=== PATIENT | female | born 1940 | race Caucasian/White ===

== ENCOUNTER → 2018-08-05 | Outpatient (CLI) | payer MEDICARE ==
--- NOTE | 2018-08-05 15:14 | US ---
EXAMINATION TYPE: US carotid duplex BILAT DATE OF EXAM: 08/05/2018 COMPARISON: NONE CLINICAL HISTORY: I65.23 Occlusion and stenosis of bilateral carotid. Blurred vision for 2 months EXAM MEASUREMENTS: RIGHT: Peak Systolic Velocity (PSV) cm/sec ----- Right CCA: 66.0 ----- Right ICA: 137.1 ----- Right ECA: 110.8 ICA/CCA ratio: 2.1 RIGHT: End Diastole cm/sec ----- Right CCA: 17.1 ----- Right ICA: 32.7 ----- Right ECA: 10.7 LEFT: Peak Systolic Velocity (PSV) cm/sec ----- Left CCA: 76.5 ----- Left ICA: 103.0 ----- Left ECA: 84.9 ICA/CCA ratio: 1.3 LEFT: End Diastole cm/sec ----- Left CCA: 12.8 ----- Left ICA: 29.2 ----- Left ECA: 9.8 VERTEBRALS (direction of flow): Right Vertebral: Antegrade Left Vertebral: Antegrade Rhythm: Normal Moderate plaque right bifurcation. Mild plaque left bifurcation IMPRESSION: No evidence for hemodynamically significant stenosis. Criteria for Assigning % of Stenosis / Diameter reduction (Estimation based on the indirect measurements of the internal carotid artery velocities (ICA PSV). 1. Normal (no stenosis)=ICA PSV < 125 cm/s: ratio < 2.0: ICA EDV<40 cm/s. 2. Less than 50% stenosis=ICA PSV < 125 cm/s: ratio < 2.0: ICA EDV<40 cm/s. 3. 50 to 69% stenosis=ICA PSV of 125 to 230 cm/s: ration 2.0 ? 4.0: ICA EDV 40-100 cm/s. 4. Greater than 70% stenosis to near occlusion= ICA PSV > 230 cm/s: ratio > 4.0: ICA EDV > 100 cm/s. 5. Near occlusion= ICA PSV velocities may be low or undetectable: variable ratio and ICA EDV. 6. Total occlusion=unable to detect flow.
== END | disposition home or self-care (01) ==
LOC: RADUSWWP 14:24
PROVIDERS: ATTEND Internal Medicine
DX: I65.23 Occlusion and stenosis of bilateral carotid arteries (principal)
CPT/HCPCS: 93880

== ENCOUNTER 2020-05-06 06:18 | Emergency (ER) | payer MEDICARE ==
[2020-05-06] MEDS ORDERED: ONDANSETRON 4 MG/2 ML VIAL IVP STA (06:22)
[2020-05-06] MEDS ORDERED: SODIUM CHLORIDE 0.9% 1,000 ML IV STA (06:22)
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
[2020-05-06 06:25] VITALS: TEMP 98.3
[2020-05-06 06:47] LABS: Basophils # (A) 0.1 k/uL (0-0.2); Basophils % (A) 1 %; Carbon Monoxide 1.9 % (<10.0); Eosinophils # (A) 0.2 k/uL (0-0.7); Eosinophils % (A) 5 %; HCT 38.7 % (34.0-46.0); HGB 13.4 gm/dL (11.4-16.0); Lymphocytes # (A) 2.3 k/uL (1.0-4.8); Lymphocytes % (A) 44 %; MCH 30.7 pg (25.0-35.0); MCHC 34.6 g/dL (31.0-37.0); MCV 88.8 fL (80.0-100.0); Mean Platelet Volume 6.7; Monocytes # (A) 0.2 k/uL (0-1.0); Monocytes % (A) 5 %; Neutrophils # (A) 2.3 k/uL (1.3-7.7); Neutrophils % (A) 44 %; Platelet Count 207 k/uL (150-450); RBC 4.36 m/uL (3.80-5.40); RDW 13.6 % (11.5-15.5); VBG PH 7.35 (7.31-7.41); WBC 5.2 k/uL (3.8-10.6)
[2020-05-06 07:04] LABS: Albumin 3.5 g/dL (3.5-5.0); Calcium 8.8 mg/dL (8.4-10.2); Magnesium 1.3 mg/dL (1.6-2.3); Phosphorus 3.8 mg/dL (2.5-4.5); Potassium 3.9 mmol/L (3.5-5.1); Total Bilirubin 0.5 mg/dL (0.2-1.3); Total Protein 6.1 g/dL (6.3-8.2)
[2020-05-06 07:11] VITALS: BP 165/70; PULSE 71; RESP 16
== END 2020-05-06 07:33 | disposition home or self-care (01) ==
LOC: EC 06:18
DX: R53.1 Weakness (principal); R11.2 Nausea with vomiting, unspecified; E11.9 Type 2 diabetes mellitus without complications; I10 Essential (primary) hypertension; Z79.84 Long term (current) use of oral hypoglycemic drugs; Z79.899 Other long term (current) drug therapy; Z88.8 Allergy status to other drugs, medicaments and biological substances; Z91.048 Other nonmedicinal substance allergy status; Z85.828 Personal history of other malignant neoplasm of skin; Z90.49 Acquired absence of other specified parts of digestive tract; Z87.891 Personal history of nicotine dependence; Z98.42 Cataract extraction status, left eye; Z98.41 Cataract extraction status, right eye
CPT/HCPCS: 36415; 80053; 82375; 82550; 82803; 83735; 84100; 84484; 85025; 93005; 96360; 99285

== ENCOUNTER → 2021-09-17 | Outpatient (CLI) | payer MEDICARE ==
--- NOTE | 2021-09-17 13:38 | US ---
EXAMINATION TYPE: US carotid duplex BILAT DATE OF EXAM: 09/17/2021 COMPARISON: US 2019 CLINICAL HISTORY: Z86.79 PERSONAL HISTORY OF OTHER DISEASES OF THE C. EXAM MEASUREMENTS: RIGHT: Peak Systolic Velocity (PSV) cm/sec ----- Right CCA: 68.9 ----- Right ICA: 116.3 ----- Right ECA: 92.4 ICA/CCA ratio: 1.7 RIGHT: End Diastole cm/sec ----- Right CCA: 17.9 ----- Right ICA: 30.4 ----- Right ECA: 10.7 LEFT: Peak Systolic Velocity (PSV) cm/sec ----- Left CCA: 65.0 ----- Left ICA: 73.2 ----- Left ECA: 69.8 ICA/CCA ratio: 1.1 LEFT: End Diastole cm/sec ----- Left CCA: 12.0 ----- Left ICA: 18.5 ----- Left ECA: 0.0 VERTEBRALS (direction of flow): Right Vertebral: Antegrade Left Vertebral: Antegrade Rhythm: Arrhythmia No significant stenosis IMPRESSION: No significant flow-limiting stenosis by velocity measurements. Criteria for Assigning % of Stenosis / Diameter reduction (Estimation based on the indirect measurements of the internal carotid artery velocities (ICA PSV). 1. Normal (no stenosis)=ICA PSV < 125 cm/s: ratio < 2.0: ICA EDV<40 cm/s. 2. Less than 50% stenosis=ICA PSV < 125 cm/s: ratio < 2.0: ICA EDV<40 cm/s. 3. 50 to 69% stenosis=ICA PSV of 125 to 230 cm/s: ration 2.0 ? 4.0: ICA EDV 40-100 cm/s. 4. Greater than 70% stenosis to near occlusion= ICA PSV > 230 cm/s: ratio > 4.0: ICA EDV > 100 cm/s. 5. Near occlusion= ICA PSV velocities may be low or undetectable: variable ratio and ICA EDV. 6. Total occlusion=unable to detect flow.
== END | disposition home or self-care (01) ==
LOC: RADUSWWP 11:59
PROVIDERS: ATTEND Internal Medicine
DX: I49.9 Cardiac arrhythmia, unspecified (principal); Z86.79 Personal history of other diseases of the circulatory system
CPT/HCPCS: 93880

== ENCOUNTER → 2021-11-03 | Outpatient (CLI) | payer MEDICARE ==
--- NOTE | 2021-11-03 21:15 | CT ---
EXAMINATION TYPE: CT brain wo con CT DLP: 1036 mGycm, Automated exposure control for dose reduction was used. DATE OF EXAM: 11/03/2021 7:05 PM COMPARISON: None. CLINICAL INDICATION:Female, 81 years old with history of Dizziness R42, dizziness TECHNIQUE: Brain: Multiple axial CT images of the brain were obtained without IV contrast. FINDINGS: Brain: Extra-axial spaces: No abnormal extra-axial fluid collections. Ventricular system: Dilatation in proportion to cerebral atrophy. Cerebral parenchyma: Cerebral atrophy. No acute intraparenchymal hemorrhage or mass effect. The judd -white junction is well differentiated. Scattered hypoattenuating areas are seen within the white mat ter. Cerebellum: Unremarkable. Mass effect: No evidence of midline shift. Intracranial vasculature: unremarkable Soft tissues: Normal. Calvarium/osseous structures: No depressed skull fracture. Paranasal sinuses and mastoid air cells: Mild scattered paranasal sinus disease most proximal left ma xillary sinus. Visualized orbits: Bilateral aphakia IMPRESSION: 1. No acute intracranial process. 2. Nonspecific white matter changes, likely secondary to chronic small vessel ischemic disease.
== END | disposition home or self-care (01) ==
LOC: RADCTMAIN 18:42
PROVIDERS: ATTEND Internal Medicine
DX: I67.82 Cerebral ischemia (principal)
CPT/HCPCS: 70450

== ENCOUNTER 2021-11-07 20:37 | Inpatient (IN) | payer MEDICARE ==
[2021-11-07] MEDS ORDERED: Alteplase PER PHARMACY Stroke 1 EACH MISC MISCELLANE PRN (20:44)
[2021-11-07] MEDS ORDERED: ALTEPLASE 73 MG in EMPTY BAG 1 BAG IV STA (20:47)
[2021-11-07] MEDS ORDERED: ALTEPLASE BOLUS FOR STROKE 8 MG in EMPTY SYRINGE 1 SYR IV STA (20:47)
[2021-11-07 21:01] LABS: Glucose,Whole Blood 215 mg/dL (70-110)
[2021-11-07 21:03] LABS: Basophils % (A) 0 %; Eosinophils # (A) 0.1 k/uL (0-0.7); Eosinophils % (A) 2 %; HCT 38.2 % (34.0-46.0); HGB 13.1 gm/dL (11.4-16.0); Lymphocytes # (A) 2.2 k/uL (1.0-4.8); Lymphocytes % (A) 33 %; MCH 29.5 pg (25.0-35.0); MCHC 34.3 g/dL (31.0-37.0); MCV 86.3 fL (80.0-100.0); Mean Platelet Volume 7.3; Monocytes # (A) 0.3 k/uL (0-1.0); Monocytes % (A) 4 %; Neutrophils # (A) 3.9 k/uL (1.3-7.7); Neutrophils % (A) 58 %; Platelet Count 177 k/uL (150-450); RBC 4.43 m/uL (3.80-5.40); RDW 13.4 % (11.5-15.5); WBC 6.6 k/uL (3.8-10.6)
--- NOTE | 2021-11-07 21:05 | ED ---
General Adult HPI - General Chief complaint: Weakness Stated complaint: Stroke-like Symptoms Time Seen by Provider: 11/07/21 20:43 Source: patient, RN notes reviewed, old records reviewed Mode of arrival: EMS Limitations: altered mental status - History of Present Illness Initial comments: Patient is an 81-year-old female with past medical history remarkable for diabetes, hypertension, presents emergency Department complaining of weakness. Last known well was approximately 1930 with family saw her. They returned shortly after 8 PM and patient is complaining of generalized weakness at that time. They called EMS. EMS was concerned for possible facial droop but generalized weakness all over. Upon arrival, patient was evaluated in trauma bay 1. She does have left-sided facial droop. History is difficult to obtain from the patient, but she denies any pain anywhere. Does have slurred speech. Has generalized weakness in all extremities. Answering questions appropriately. At this time, code alteplase was activated. - Related Data Home Medications Medication Instructions Recorded Confirmed Aspirin 81 mg PO DAILY 01/12/14 11/07/21 Levothyroxine Sodium [Synthroid] 75 mcg PO DAILY 01/12/14 11/07/21 hydroCHLOROthiazide [Hydrodiuril] 25 mg PO DAILY 01/12/14 11/07/21 lisinopriL 40 mg PO DAILY 01/12/14 11/07/21 Calcium Carbonate [Calcium] 600 mg PO BID 11/07/21 11/07/21 Cholecalciferol [Vitamin D3 (25 25 mcg PO Q48H 11/07/21 11/07/21 Mcg = 1000 Iu)] Doxycycline [Vibramycin] 100 mg PO DIRECTED 11/07/21 11/07/21 Fish Oil/Dha/Epa [Fish Oil 1,200 1 cap PO DAILY 11/07/21 11/07/21 mg Fish Oil] Glimepiride [Amaryl] 1 mg PO W/BRKFST 11/07/21 11/07/21 Indomethacin [Indocin] 50 mg PO DIRECTED 11/07/21 11/07/21 Oxybutynin Chloride 5 mg PO HS 11/07/21 11/07/21 Rosuvastatin Calcium [Crestor] 5 mg PO HS 11/07/21 11/07/21 Allergies Allergy/AdvReac Type Severity Reaction Status Date / Time cephalexin [From Keflex] Allergy Nausea & Verified 11/07/21 22:31 Vomiting fenofibrate nanocrystallized Allergy irregular Verified 11/07/21 20:50 [From Tricor] heart rate fenofibrate,micronized Allergy irregular Verified 11/07/21 20:50 [From Tricor] heart rate moxifloxacin [From Vigamox] Allergy Nausea & Verified 11/07/21 22:31 Vomiting AMMONIUM LACTATE Allergy Rash/Hives Uncoded 11/07/21 22:31 adhesive tape AdvReac Rash/Hives Uncoded 11/07/21 20:50 Review of Systems ROS Statement: Those systems with pertinent positive or pertinent negative responses have been documented in the HPI. Review of Systems: CONST: Denies fever EYES: Denies blurry vision ENT: Denies nasal congestion C/V: Denies Chest pain RESP: Denies shortness of breath GI: Denies abdominal pain : Denies dysuria SKIN: Denies rash. MSK: Denies joint pain. NEURO: Endorses weakness ROS Other: All systems not noted in ROS Statement are negative. Past Medical History Past Medical History: Cancer, Diabetes Mellitus, Hypertension Additional Past Medical History / Comment(s): hiatal hernia, enlarged kidney, hx kidney stone, postmenopause vaginal bleeding, hx skin cancer, IBS History of Any Multi-Drug Resistant Organisms: None Reported Past Surgical History: Appendectomy, Cholecystectomy Additional Past Surgical History / Comment(s): cataracts Past Anesthesia/Blood Transfusion Reactions: Motion Sickness Past Psychological History: No Psychological Hx Reported Smoking Status: Never smoker Past Alcohol Use History: None Reported Past Drug Use History: None Reported - Past Family History Father Family Medical History: Myocardial Infarction (OR) Mother Additional Family Medical History / Comment(s): Alzheimer's General Exam - General Exam Comments Initial Comments: General: Appears in mild to moderate distress. HEAD: Normal with no signs of head trauma. EYES: PERRLA, EOMI, conjunctiva normal, no discharge. Pupils are 2-3 mm bilaterally and equal. ENT: Hearing grossly intact, normal oropharynx. RESPIRATORY: Clear breath sounds bilaterally. No wheezes, rales, or rhonchi. C/V: Irregular rate and rhythm. S1 and S2 auscultated. Peripheral pulses are 2+ and intact throughout. ABD: Abd is soft, nontender, nondistended EXT: Normal range of motion, no obvious deformity SKIN: No rashes or lesions observed on exposed skin. NEURO: Alert and oriented 3-4 it appears. NIH is 7. 1 point for weakness in each limb with drift. 2 points for left-sided facial droop. 1 point for dysarthria. Last known well at 1929. Limitations: altered mental status Course Vital Signs 11/07/21 11/07/21 11/07/21 20:40 20:55 21:10 Temperature 97.5 F L Pulse Rate 78 74 74 Respiratory 20 20 20 Rate Blood Pressure 177/48 166/50 190/68 O2 Sat by Pulse 100 97 97 Oximetry 11/07/21 11/07/21 11/07/21 21:25 21:30 21:45 Temperature 97.6 F Pulse Rate 72 70 65 Respiratory 20 20 18 Rate Blood Pressure 164/60 145/77 159/62 O2 Sat by Pulse 97 97 95 Oximetry 11/07/21 11/07/21 11/07/21 22:00 22:15 22:30 Temperature Pulse Rate 64 62 62 Respiratory 20 20 18 Rate Blood Pressure 148/56 148/58 146/57 O2 Sat by Pulse 97 97 97 Oximetry 11/07/21 11/07/21 11/07/21 22:45 23:00 23:15 Temperature 97.6 F Pulse Rate 63 68 70 Respiratory 18 18 20 Rate Blood Pressure 146/57 136/89 147/68 O2 Sat by Pulse 97 98 97 Oximetry 11/07/21 11/07/21 11/08/21 23:30 23:45 00:00 Temperature Pulse Rate 61 59 L 62 Respiratory 18 20 20 Rate Blood Pressure 171/63 145/56 144/58 O2 Sat by Pulse 97 97 97 Oximetry 11/08/21 00:08 Temperature Pulse Rate 60 Respiratory 20 Rate Blood Pressure 149/89 O2 Sat by Pulse 97 Oximetry Medical Decision Making - Medical Decision Making Based on the patient's presentation and physical exam, I'm concerned she is having an acute stroke. Code alteplase was called. Blood sugar was within normal limits patient's blood pressure is slightly elevated to 177/48. NIH is 7. Last known well was 1929. Patient has no known contraindications to TPA. I did discuss the patient with her son. Apparently patient had a dizziness episode last week that she saw her PCP for. They obtained a CT earlier in the week without contrast that showed no acute intracranial process. Patient has had no other symptoms since. Has not been complaining of symptoms since. No known history of atrial fibrillation that he is aware of. No history of blood thinner use. Primary concern is elevated blood sugar for the patient as well as her acute onset of weakness. Patient was just started on Vibramycin over concern for worsening gout as well as indomethacin. Remainder the vital signs are within normal limits at this time. Patient was transferred to the CT scanner for further imaging. I discussed the case with Dr. Schmidt who was in agreement this plan. Patient is a TPA candidate. He will review the imaging. EKG showed what appears to be atrial fibrillation. No signs of acute ischemia.CT brain showed no intracranial hemorrhage or intracranial process. CT angiogram was negative for significant abnormality. Patient was therefore administered TPA at 2115. Patient's son consented to therapy. I reviewed the imaging with Dr. Schmidt who was in agreement with the plan. Remainder the patient's labs are remarkable for a mild [place] NENA. Troponin is undetectable. Which are within normal limits. Slight hyponatremia of 130, hypochloremia of 97. Slightly decreased potassium at 3.2. Just after TPA was started, blood pressure was slightly elevated with systolic at 190. Patient was therefore given a dose of labetalol. I also ordered a nicardipine drip to be held at bedside with goal blood pressures systolic less than 175-180 and diastolics less than 100-105. Just prior to TPA, patient's symptoms initially seemed to worsen, with aphasia worsening. NIH at that time was approximately 9. However while TPA was being administered, symptoms did seem to improve and NIH decreased to 6-7. I to the patient's son. He expressed understanding. Patient will be admitted for medical management. He was in agreement this plan. I spoke with the admitting physician, Dr. Rasmussen who accepted the patient. I spoke with Dr. Iglesias of ICU who accepted the patient ICU. I spoke with Dr. Elliott of neurology who was in agreement with the plan as well. Just prior to admission to the ICU, there was concern for possible worsening of her mental status. Patient did seem slightly more aphasic again. Due to TPA administration, we will repeat CT imaging at this time to ensure there is no signs of intracranial bleed. CT was negative, no change. Patient was therefore admitted to ICU in serious condition. - Lab Data Result diagrams: 11/07/21 20:54 11/07/21 20:54 Lab Results 11/07/21 11/07/21 11/07/21 Range/Units 20:41 20:54 20:54 WBC 6.6 (3.8-10.6) k/uL RBC 4.43 (3.80-5.40) m/uL Hgb 13.1 (11.4-16.0) gm/dL Hct 38.2 (34.0-46.0) % MCV 86.3 (80.0-100.0) fL MCH 29.5 (25.0-35.0) pg MCHC 34.3 (31.0-37.0) g/dL RDW 13.4 (11.5-15.5) % Plt Count 177 (150-450) k/uL MPV 7.3 Neutrophils % 58 % Lymphocytes % 33 % Monocytes % 4 % Eosinophils % 2 % Basophils % 0 % Neutrophils # 3.9 (1.3-7.7) k/uL Lymphocytes # 2.2 (1.0-4.8) k/uL Monocytes # 0.3 (0-1.0) k/uL Eosinophils # 0.1 (0-0.7) k/uL Basophils # 0.0 (0-0.2) k/uL PT 10.9 (9.0-12.0) sec INR 1.0 (<1.2) APTT 22.5 (22.0-30.0) sec Sodium (137-145) mmol/L Potassium (3.5-5.1) mmol/L Chloride (98-107) mmol/L Carbon Dioxide (22-30) mmol/L Anion Gap mmol/L BUN (7-17) mg/dL Creatinine (0.52-1.04) mg/dL Est GFR (CKD-EPI)AfAm (>60 ml/min/1.73 sqM) Est GFR (CKD-EPI)NonAf (>60 ml/min/1.73 sqM) Glucose (74-99) mg/dL POC Glucose (mg/dL) 215 H (70-110) mg/dL POC Glu Bench Shear Operator Celena Elizalde Plasma Lactic Acid Ceasar (0.7-2.0) mmol/L Calcium (8.4-10.2) mg/dL Total Bilirubin (0.2-1.3) mg/dL AST (14-36) U/L ALT (4-34) U/L Alkaline Phosphatase (38-126) U/L Troponin I (0.000-0.034) ng/mL Total Protein (6.3-8.2) g/dL Albumin (3.5-5.0) g/dL 11/07/21 11/07/21 11/07/21 Range/Units 20:54 20:54 20:54 WBC (3.8-10.6) k/uL RBC (3.80-5.40) m/uL Hgb (11.4-16.0) gm/dL Hct (34.0-46.0) % MCV (80.0-100.0) fL MCH (25.0-35.0) pg MCHC (31.0-37.0) g/dL RDW (11.5-15.5) % Plt Count (150-450) k/uL MPV Neutrophils % % Lymphocytes % % Monocytes % % Eosinophils % % Basophils % % Neutrophils # (1.3-7.7) k/uL Lymphocytes # (1.0-4.8) k/uL Monocytes # (0-1.0) k/uL Eosinophils # (0-0.7) k/uL Basophils # (0-0.2) k/uL PT (9.0-12.0) sec INR (<1.2) APTT (22.0-30.0) sec Sodium 130 L (137-145) mmol/L Potassium 3.2 L (3.5-5.1) mmol/L Chloride 97 L (98-107) mmol/L Carbon Dioxide 21 L (22-30) mmol/L Anion Gap 12 mmol/L BUN 23 H (7-17) mg/dL Creatinine 1.22 H (0.52-1.04) mg/dL Est GFR (CKD-EPI)AfAm 48 (>60 ml/min/1.73 sqM) Est GFR (CKD-EPI)NonAf 42 (>60 ml/min/1.73 sqM) Glucose 176 H (74-99) mg/dL POC Glucose (mg/dL) (70-110) mg/dL POC Glu Bench Shear Operator ID Plasma Lactic Acid Ceasar 1.2 (0.7-2.0) mmol/L Calcium 9.6 (8.4-10.2) mg/dL Total Bilirubin 0.6 (0.2-1.3) mg/dL AST 26 (14-36) U/L ALT 22 (4-34) U/L Alkaline Phosphatase 53 (38-126) U/L Troponin I <0.012 (0.000-0.034) ng/mL Total Protein 6.2 L (6.3-8.2) g/dL Albumin 3.9 (3.5-5.0) g/dL - EKG Data -: EKG Interpreted by Me EKG Comments: 12-lead Electrocardiogram Interpretation Note EKG was reviewed and interpreted by myself. 12-lead ECG performed at 2045 is interpreted by me as revealing atrial flutter ablation at a rate of 74 beats per minute. [place] is normal. [place] interval is unobtainable. QRS duration 102 ms, QTc is 431 ms.. There were no ST or T wave abnormalities to suggest myocardial ischemia or injury. R wave progression across the precordium was satisfactory. By my interpretation this EKG is non-diagnostic for acute ischemia. Appears to be in new onset atrial fibrillation. Critical Care Time Critical Care Time: Yes Total Critical Care Time: 35 Critical Care Time: Upon my evaluation, this patient had a high probability of imminent or life-threatening deterioration due to CVA status post TPA, which required my direct attention, intervention, and personal management. I have personally provided 35 minutes of critical care time exclusive of time spent on separately billable procedures. Time includes review of laboratory data, radiology results, discussion with consultants, and monitoring for potential decompensation. Interventions were performed as documented in my note. Disposition Clinical Impression: CVA (cerebral vascular accident), Atrial fibrillation, new onset, Facial droop, Dysarthria, Weakness Narrative: Acute CVA, administered TPA Disposition: ADMITTED IP TO THIS HOSP Condition: Serious Is patient prescribed a controlled substance at d/c from ED?: No Time of Disposition: 22:15
--- NOTE | 2021-11-07 21:08 | CT ---
EXAMINATION TYPE: CT brain wo con for TPA DATE OF EXAM: 11/07/2021 COMPARISON: 11/03/2021 HISTORY: Neuro deficits, code stroke alteplace CT DLP: 1146.[address] of the brain was performed. The ventricles, basal cisterns and sulci overlying the cerebral convexities demonstrate mild enlargem ent. There is no evidence for intracranial hemorrhage or sulcal effacement. There is decreased attenuation about the periventricular white matter and deep white matter of both c erebral hemispheres, compatible with chronic small vessel ischemia. Differential diagnosis does inclu de demyelination. No mass effects are seen.No midline shift. Osseous calvarium is intact. Moderate opacification left maxillary sinus. If symptoms persist consider MRI. IMPRESSION: 1. Age related atrophic and chronic small vessel ischemic change without acute intracranial process s een at this time.
[2021-11-07 21:13] LABS: Partial Thromboplastin Time 22.5 sec (22.0-30.0); Prothrombin Time 10.9 sec (9.0-12.0)
[2021-11-07 21:19] LABS: Albumin 3.9 g/dL (3.5-5.0); Calcium 9.6 mg/dL (8.4-10.2); Potassium 3.2 mmol/L (3.5-5.1); Total Bilirubin 0.6 mg/dL (0.2-1.3); Total Protein 6.2 g/dL (6.3-8.2)
[2021-11-07] MEDS ORDERED: LABETALOL 5 MG/ML VIAL MDV IVP STA (21:24)
[2021-11-07] MEDS ORDERED: ONDANSETRON 4 MG/2 ML VIAL IVP STA (21:25)
--- NOTE | 2021-11-07 21:33 | CT ---
EXAMINATION TYPE: CT angio head neck DATE OF EXAM: 11/07/2021 COMPARISON: None HISTORY: Neuro deficit, code stroke. CT DLP: 747.5 mGycm CONTRAST: Performed with IV Contrast, patient injected with 65 mL of Isovue 370. Combination Contrast CTA cervical carotids and [place] CTA cervical carotids with 3-D recons truction Contrast CTA of the cervical carotids was performed 3-D reconstruction imaging obtained at a separate workstation. Right carotid system: Mild plaque is seen of the right common carotid artery. There is mild plaque a lso noted at the carotid bulb and proximal ICA. No significant diameter reduction. ECA is patent. Right vertebral artery appears unremarkable. Left carotid system: Mild plaque is seen of the left common carotid artery. There is mild plaque als o noted at the carotid bulb and proximal ICA. No significant diameter reduction. ECA is patent. Lef t vertebral artery appears unremarkable. IMPRESSION: 1. No significant diameter reduction to account for the patient's symptoms. CTA [place] with 3-D reconstruction Contrast CTA of the [place] was performed 3-D reconstruction imaging obtained at a separate workstation. Vertebrobasilar system as well as intracranial portions of the internal carotid arteries and their ma jailene tributaries are patent. I do not see evidence for sizable aneurysm or vascular malformation. Pl ease note MRI provides greater sensitivity and specificity. Visualized brain appears grossly unremar kable. IMPRESSION: 1. No significant abnormality. NASCET criteria was used in interpretation of this exam?
[2021-11-07] MEDS ORDERED: SODIUM CHLORIDE 0.9% 50 ML MINI-BAG IV ONE ×2 (21:48→23:52)
--- NOTE | 2021-11-07 22:30 | XR ---
EXAMINATION TYPE: XR chest 1V portable DATE OF EXAM: 11/07/2021 COMPARISON: NONE HISTORY: Nausea TECHNIQUE: Single view FINDINGS: There is poor inspiration. There is crowding of the lower lobe lung markings with atelectas is. No heart failure seen. There are no hilar masses. Bony thorax is intact. IMPRESSION: There is some atelectasis at the lung bases. No obvious heart failure. Lower lobe pneumon ia not excluded.
--- NOTE | 2021-11-07 23:35 | CT ---
EXAMINATION TYPE: CT brain wo con DATE OF EXAM: 11/07/2021 COMPARISON: 11/07/2021 HISTORY: increased neuro defecits, prior on pacs CT DLP: 1127.4 mGycm Automated exposure control for dose reduction was used. There is some cerebral cortical atrophy. There is no mass effect or midline shift. No sign of intracr anial hemorrhage. Calvarium is intact. Skull base is intact. There is mucosal thickening consistent with left maxillary sinusitis. IMPRESSION: Cerebral atrophy. No acute intracranial abnormality. No change compared to exam 2 hours ago.
[2021-11-08 00:28] LABS: Glucose,Whole Blood 197 mg/dL (70-110)
[2021-11-08] MEDS: niCARdipine 20 MG in SODIUM CHLORIDE 0.9% 192 ML IV SCH ×6 (01:50→23:40)
[2021-11-08] MEDS ORDERED: SODIUM CHLORIDE 0.9% 1,000 ML IV SCH (02:15)
[2021-11-08 02:19] LABS: Appearance,Urine Clear (Clear); Bilirubin,Urine Negative (Negative); Blood,Urine Negative (Negative); Color,Urine Yellow; Glucose,Urine (UA) Trace (Negative); Ketones,Urine 2+ (Negative); Leukocyte Esterase,Urine Negative (Negative); Nitrite,Urine Negative (Negative); PH, Urine 5.5 (5.0-8.0); Protein,Urine Trace (Negative); Urobilinogen,Urine <2.0 mg/dL (<2.0)
[2021-11-08 02:27] LABS: Amphetamine Screen,Urine Not Detected (NotDetected); Barbiturate Screen,Urine Not Detected (NotDetected); Benzodiazepines Screen,Urine Not Detected (NotDetected); Cocaine Screen,Urine Not Detected (NotDetected); Methadone Screen, Urine Not Detected (NotDetected); Opiate Screen,Urine Not Detected (NotDetected); Oxycodone Screen, Urine Not Detected (NotDetected); Phencyclidine Screen,Urine Not Detected (NotDetected); Tricyclic Antidepressant,Urine Not Detected (NotDetected); Urn Cannabinoid Scrn Not Detected (NotDetected)
[2021-11-08 02:30] LABS: Specific Gravity,Urine >1.050 (1.001-1.035)
--- NOTE | 2021-11-08 03:29 | CT ---
EXAMINATION TYPE: CT brain wo con for TPA DATE OF EXAM: 11/08/2021 COMPARISON: Yesterday HISTORY: Weakness CT DLP: mGycm Automated exposure control for dose reduction was used. Images obtained of the brain without contrast. There is cerebral cortical atrophy. There is no mass effect or midline shift. No evidence of intracra nial hemorrhage. Calvarium is intact. Skull base is intact. There is stable left side maxillary sinus mucosal thickening. IMPRESSION: Cerebral atrophy. No acute intracranial abnormality. No change compared to exam 4 hours ago.
--- NOTE | 2021-11-08 03:34 | P.PN ---
Progress Note - Text Progress Note Date: 11/08/21 11/07/2021: 11:[address] Blackman informed me about the case and that patient received TPA for NIHSS between 6-9. 11/08/2021: 02:22 am VIKTORIA Castro informed me via Perfet serve that patient's condition has got worse and her NIHSS is 16 2:27 am D/W Dr Reyes, ordered CT head and CTA with contrast 2:46 am: Nurse informed that radiology called about GFR is 46 and patient to receive the second dose of IV contrast. Recommend to increase IVF to 100 cc per hr (Currently at 75 cc/hr). 3:[address] head without contrast no acute process. I personally reviewed, no hemorrhage, no increased density of any major intracranial vasculature, no early sign of stroke. Dr Reyes recommended CTA head and neck. Patient with life threatening situation. Benefits outweigh the risks 3:46 am CTA head and neck images are up, showed no major occlusion on my review. Informed Dr Hart for review. Official radiology report pending. 3:48 am Stat EEG, repeat chem 7 in am. continue present treatment with close neurochecks. MRI brain without contrast in am. Dr Molina to follow up patient in am.
--- NOTE | 2021-11-08 04:08 | CT ---
EXAMINATION TYPE: CODE STROKE: CTA head neck DATE OF EXAM: 11/08/2021 COMPARISON: Yesterday HISTORY: Decline in status CT DLP: 695.7 mGycm Automated exposure control for dose reduction was used. CONTRAST: Performed with IV Contrast, patient injected with 65 mL of Isovue 370. Images obtained from the aortic arch to the vertex of the brain with IV contrast. There are Three-D p ostprocessed images. There is normal branching pattern of the great vessels on the aortic arch. There is arterial flow in both subclavian arteries. There is arterial flow in the common internal and external carotid arteries bilaterally. There is some mild plaque formation at the right carotid artery bifurcation with 20% prakash rigoberto narrowing. There is arterial flow in both vertebral arteries. No evidence of carotid or vertebr al artery aneurysm or dissection. There is arterial flow in the vertebrobasilar artery system. There is arterial flow in the anterior middle and posterior cerebral arteries bilaterally. No mass ef fect. No evidence of intracranial aneurysm or neovascularity. No evidence of intracranial hemodynamic arterial stenosis. There is normal enhancement of the venous sinuses. IMPRESSION: Minimal plaque at the right carotid artery bifurcation. Otherwise negative CT angiogram of the neck. Negative CT angiogram of the brain. No adverse change compared to recent exam.
--- NOTE | 2021-11-08 04:13 | P.HPIM ---
History of Present Illness H&P Date: 11/07/21 Patient is an 81-year-old female with a PMH of gout, hypertension, DM, hypothyroidism who was brought into the emergency room via EMS for concerns of stroke. History is provided by the patient's son at the bedside in the ED provider. The son reports that over the past 2 weeks, the patient had been experiencing intermittent lightheadedness and confusion, for which her PCP had ordered a CT brain which was unremarkable. The son was at the patient's house and left the house at around 7:30 PM and upon returning at around 810, found the patient to be confused, lethargic, and with a facial droop. Upon arrival to the emergency room, the patient was noted to have a left-sided facial droop, for wh ich a code stroke was activated. NIHSS was 7. Of note, the patient was noted to be in A. fib in the emergency room with no prior history documented and patient not being on any anticoagulants. The son reports the patient was previously noted to have a single episode of A. fib several years agotime at which point anticoagulants were not initiated. Furthermore, the patient was evaluated at an urgent care center earlier today for flareup of gout for which she was given indomethacin. The case was discussed by ED provided with neuro therapy administrative assistant substation operator chief and the patient was deemed to be a TPA candidate. CT brain and angiogram were unremarkable and the patient was subsequently given TPA at 2114. The patient's NIH stroke scale was noted to have improved from 9 to 6/7 with tPA. At time of my evaluation shortly after, the patient's mental status was noted to have worsened. She was noted to have worsening aphasia and lethargic. Repeat CT brain was ordered which was unremarkable. No meaningful history could be obtained from the patient. The patient was admitted to the medical ICU. Review of systems: Unable to perform due to mental status Physical examination: General: non toxic, no distress, appears at stated age, normal weight Derm: no unusual rashes/lesions, warm Head: atraumatic, normocephalic, symmetric Eyes: EOMI, no lid lag, anicteric sclera, pupils equal round reactive to light ENT: Nose and ears atraumatic Neck: No cervical lymphadenopathy, trachea midline, supple Mouth: no lip lesion, mucus membranes moist Cardiovascular: Irregularly irregular, no murmur, positive dorsalis pedis pulse bilateral, no edema Lungs: CTA bilateral, no rhonchi, no rales, no accessory muscle use Abdominal: soft, nontender to palpation, no guarding Ext: Strength to out of 5 in all extremities, no gross muscle atrophy, no contractures, Neuro: Unable to assess since patient is not following DIRECTIONS, no gross focal neuro deficits, somnolent Assessment/plan Suspected CVA status post TPA administration -Neurology and neuro therapy administrative assistant recommendations appreciated -Continue with strict blood pressure control as per neuro therapy administrative assistant guidelines with the Cardene infusion -Neuro checks -Continue with the MICU admission -May be secondary to undiagnosed A. fib Newly diagnosed A. fib -Echocardiogram -Cardiology consult -Cardiac monitoring Chronic conditions: Hypothyroidism, hypertension, gout, type II DM -Strict blood pressure guidelines as per neuro therapy administrative assistant -Resume home medications once patient able to take by mouth Hypokalemia -Replace and monitor Acute kidney injury -Gentle IV hydration and monitor for now DVT prophylaxis -Status post TPA administration -Defer to neurology regarding reinitiation of anticoagulation for A. fib The patient is admitted with an anticipated greater than than 2 midnight stay for evaluation of stroke. CODE STATUS: Full Code Discussed with: Patient Anticipated discharge date: 3-[address]: [facility] Past Medical History Past Medical History: Cancer, Diabetes Mellitus, Hypertension Additional Past Medical History / Comment(s): hiatal hernia, enlarged kidney, hx kidney stone, postmenopause vaginal bleeding, hx skin cancer, IBS History of Any Multi-Drug Resistant Organisms: None Reported Past Surgical History: Appendectomy, Cholecystectomy Additional Past Surgical History / Comment(s): cataracts Past Anesthesia/Blood Transfusion Reactions: Motion Sickness Past Psychological History: No Psychological Hx Reported Smoking Status: Never smoker Past Alcohol Use History: None Reported Past Drug Use History: None Reported - Past Family History Father Family Medical History: Myocardial Infarction ([place]) Mother Family Medical History: COPD Additional Family Medical History / Comment(s): Alzheimer's Medications and Allergies Home Medications Medication Instructions Recorded Confirmed Type Aspirin 81 mg PO DAILY 01/12/14 11/07/21 History Levothyroxine Sodium [Synthroid] 75 mcg PO DAILY 01/12/14 11/07/21 History hydroCHLOROthiazide [Hydrodiuril] 25 mg PO DAILY 01/12/14 11/07/21 History lisinopriL 40 mg PO DAILY 01/12/14 11/07/21 History Calcium Carbonate [Calcium] 600 mg PO BID 11/07/21 11/07/21 History Cholecalciferol [Vitamin D3 (25 25 mcg PO Q48H 11/07/21 11/07/21 History Mcg = 1000 Iu)] Doxycycline [Vibramycin] 100 mg PO DIRECTED 11/07/21 11/07/21 History Fish Oil/Dha/Epa [Fish Oil 1,200 1 cap PO DAILY 11/07/21 11/07/21 History mg Fish Oil] Glimepiride [Amaryl] 1 mg PO W/BRKFST 11/07/21 11/07/21 History Indomethacin [Indocin] 50 mg PO DIRECTED 11/07/21 11/07/21 History Oxybutynin Chloride 5 mg PO HS 11/07/21 11/07/21 History Rosuvastatin Calcium [Crestor] 5 mg PO HS 11/07/21 11/07/21 History Allergies Allergy/AdvReac Type Severity Reaction Status Date / Time cephalexin [From Keflex] Allergy Nausea & Verified 11/07/21 22:31 Vomiting fenofibrate nanocrystallized Allergy irregular Verified 11/07/21 20:50 [From Tricor] heart rate fenofibrate,micronized Allergy irregular Verified 11/07/21 20:50 [From Tricor] heart rate moxifloxacin [From Vigamox] Allergy Nausea & Verified 11/07/21 22:31 Vomiting AMMONIUM LACTATE Allergy Rash/Hives Uncoded 11/07/21 22:31 adhesive tape AdvReac Rash/Hives Uncoded 11/07/21 20:50 Physical Exam Vitals: Vital Signs Temp Pulse Resp BP Pulse Ox 11/07/21 23:45 59 L 20 145/56 97 11/07/21 23:30 61 18 171/63 97 11/07/21 23:15 70 20 147/68 97 11/07/21 23:00 97.6 F 68 18 136/89 98 11/07/21 22:45 63 18 146/57 97 11/07/21 22:30 62 18 146/57 97 11/07/21 22:15 62 20 148/58 97 11/07/21 22:00 64 20 148/56 97 11/07/21 21:45 65 18 159/62 95 11/07/21 21:30 97.6 F 70 20 145/77 97 11/07/21 21:25 72 20 164/60 97 11/07/21 21:10 74 20 190/68 97 11/07/21 20:55 74 20 166/50 97 11/07/21 20:40 97.5 F L 78 20 177/48 100 Intake and Output 11/07/21 11/07/21 11/08/21 14:59 22:59 06:59 Other: Weight 90.5 kg Results CBC & Chem 7: 11/07/21 20:54 11/07/21 20:54 Labs: Abnormal Lab Results - Last 24 Hours (Table) 11/07/21 11/07/21 Range/Units 20:41 20:54 Sodium 130 L (137-145) mmol/L Potassium 3.2 L (3.5-5.1) mmol/L Chloride 97 L (98-107) mmol/L Carbon Dioxide 21 L (22-30) mmol/L BUN 23 H (7-17) mg/dL Creatinine 1.22 H (0.52-1.04) mg/dL Glucose 176 H (74-99) mg/dL POC Glucose (mg/dL) 215 H (70-110) mg/dL Total Protein 6.2 L (6.3-8.2) g/dL
[2021-11-08] MEDS: POTASSIUM CHLORIDE 10 MEQ in WATER FOR INJECTION 1 100ML.BAG IVPB SCH ×2 (04:42→05:45)
[2021-11-08] MEDS: SODIUM CHLORIDE 0.9% 1,000 ML IV SCH ×3 (05:46→19:46)
[2021-11-08 05:52] LABS: Glucose,Whole Blood 157 mg/dL (70-110)
[2021-11-08] MEDS: INSULIN ASPART (NovoLOG) 100 UNIT/ML VIAL SQ SCH ×3 (05:54→18:10)
[2021-11-08 06:18] LABS: African American GFR (CKD) 51 (>60 ml/min/1.73 sqM); Anion Gap 8 mmol/L; Blood Urea Nitrogen 23 mg/dL (7-17); Calcium 9.3 mg/dL (8.4-10.2); Carbon Dioxide 23 mmol/L (22-30); Chloride 98 mmol/L (98-107); Glucose 141 mg/dL (74-99); Non-African American GFR(CKD) 44 (>60 ml/min/1.73 sqM); Potassium 3.9 mmol/L (3.5-5.1); Sodium 129 mmol/L (137-145)
[2021-11-08 09:07] LABS: Chol/HDL Ratio 2.65 Ratio
--- NOTE | 2021-11-08 09:33 | MR ---
EXAMINATION TYPE: MR brain wo con DATE OF EXAM: 11/08/2021 9:23 AM COMPARISON: NONE HISTORY: Neuro deficit, acute stroke. FINDINGS: The ventricles, basal cisterns and sulci overlying the cerebral convexities are mildly enlarged. There is evidence of mild periventricular white matter ischemic demyelination. Remote deep white matter insults are also noted. No acute edema is seen on diffusion weighted imaging. There is no evidence for midline shift or mass effect. Acute intracranial hemorrhage or extra-axial collection is not evident. Mastoid air cells are well-aerated. Moderate opacification left maxillary sinus. IMPRESSION: Age-related atrophic and chronic small vessel ischemic change. No acute intracranial process at this time.
--- NOTE | 2021-11-08 11:22 | P.CNPUL ---
History of Present Illness Consult date: 11/08/21 Requesting physician: Jean-Pierre Rasmussen Reason for consult: other Chief complaint: CVA. History of present illness: Pulmonary consultation dated 11/08/2021. 81-year-old female who presents to the emergency department on November 07, with weakness, strokelike symptoms, and mental status changes. She was brought in by EMS. The patient does have a history of hypertension, diabetes, and hypothyroidism. She initially complained of generalized weakness. The patient was also noted to have a left facial droop, with garbled speech. Her initial NIH score was between 7 and 9. Subsequent to that, the NIH score increased to 16. The patient did receive TPA at night 11 PM. The patient was scheduled for an MRI scan today. Currently, she is in the intensive care unit, room 261. She's getting saline at 100 mL an hour, without any supplemental oxygen. No respiratory distress, but the patient is very poorly responsive, very lethargic and somnolent. CBC was normal. Coagulation profile was normal. Sodium 129, potassium 3.9, chlorides 98, CO2 23, BUN 23, and creatinine 1.17. Brain CT showed age-related changes, but nothing acute. CT angiography of the head and neck, did not show anything acute. Chest x-ray showed some bibasilar atelectasis. Repeat CT scans of the brain, CT angiography, and MRI, failed to reveal anything acute. Review of Systems REVIEW OF SYSTEMS: CONSTITUTIONAL: Weakness NEUROLOGIC: Garbled speech and left facial droop. HEENT: [ Negative.] CARDIAC: [Negative.] PULMONARY: [Negative.] GI: [Negative.] : [Negative.] RHEUMATOLOGIC: [ Negative.] IMMUNOLOGIC: [ Negative.] ENDOCRINE: [Negative. ] DERMATOLOGIC: [Negative.] Past Medical History Past Medical History: Cancer, Diabetes Mellitus, Hypertension Additional Past Medical History / Comment(s): hiatal hernia, enlarged kidney, hx kidney stone, postmenopause vaginal bleeding, hx skin cancer, IBS History of Any Multi-Drug Resistant Organisms: None Reported Past Surgical History: Appendectomy, Cholecystectomy Additional Past Surgical History / Comment(s): cataracts Past Anesthesia/Blood Transfusion Reactions: Motion Sickness Past Psychological History: No Psychological Hx Reported Smoking Status: Never smoker Past Alcohol Use History: None Reported Past Drug Use History: None Reported - Past Family History Father Family Medical History: Myocardial Infarction ([place]) Mother Family Medical History: COPD Additional Family Medical History / Comment(s): Alzheimer's Medications and Allergies Home Medications Medication Instructions Recorded Confirmed Type Aspirin 81 mg PO DAILY 01/12/14 11/07/21 History Levothyroxine Sodium [Synthroid] 75 mcg PO DAILY 01/12/14 11/07/21 History hydroCHLOROthiazide [Hydrodiuril] 25 mg PO DAILY 01/12/14 11/07/21 History lisinopriL 40 mg PO DAILY 01/12/14 11/07/21 History Calcium Carbonate [Calcium] 600 mg PO BID 11/07/21 11/07/21 History Cholecalciferol [Vitamin D3 (25 25 mcg PO Q48H 11/07/21 11/07/21 History Mcg = 1000 Iu)] Doxycycline [Vibramycin] 100 mg PO DIRECTED 11/07/21 11/07/21 History Fish Oil/Dha/Epa [Fish Oil 1,200 1 cap PO DAILY 11/07/21 11/07/21 History mg Fish Oil] Glimepiride [Amaryl] 1 mg PO W/BRKFST 11/07/21 11/07/21 History Indomethacin [Indocin] 50 mg PO DIRECTED 11/07/21 11/07/21 History Oxybutynin Chloride 5 mg PO HS 11/07/21 11/07/21 History Rosuvastatin Calcium [Crestor] 5 mg PO HS 11/07/21 11/07/21 History Allergies Allergy/AdvReac Type Severity Reaction Status Date / Time cephalexin [From Keflex] Allergy Nausea & Verified 11/07/21 22:31 Vomiting fenofibrate nanocrystallized Allergy irregular Verified 11/07/21 20:50 [From Tricor] heart rate fenofibrate,micronized Allergy irregular Verified 11/07/21 20:50 [From Tricor] heart rate moxifloxacin [From Vigamox] Allergy Nausea & Verified 11/07/21 22:31 Vomiting AMMONIUM LACTATE Allergy Rash/Hives Uncoded 11/07/21 22:31 adhesive tape AdvReac Rash/Hives Uncoded 11/07/21 20:50 Physical Exam Osteopathic Statement: *. No significant issues noted on an osteopathic structural exam other than those noted in the History and Physical/Consult. Vitals: Vital Signs Temp Pulse Resp BP Pulse Ox 11/08/21 10:00 61 13 136/32 94 L 11/08/21 09:30 58 L 11 L 136/32 95 11/08/21 09:00 70 12 166/82 97 11/08/21 08:30 63 12 150/59 95 11/08/21 08:00 97.9 F 65 12 145/50 94 L 11/08/21 07:51 94 L 11/08/21 07:30 58 L 11 L 147/53 93 L 11/08/21 07:00 58 L 11 L 150/53 94 L 11/08/21 06:45 61 10 L 156/61 94 L 11/08/21 06:30 63 11 L 156/59 95 11/08/21 06:15 68 12 162/46 95 11/08/21 06:00 69 12 157/70 93 L 11/08/21 05:45 65 11 L 154/65 94 L 11/08/21 05:30 56 L 11 L 140/76 94 L 11/08/21 05:15 63 11 L 147/70 93 L 11/08/21 05:00 63 12 159/60 92 L 11/08/21 04:45 59 L 11 L 155/49 94 L 11/08/21 04:30 60 11 L 154/58 92 L 11/08/21 04:15 67 12 148/54 93 L 11/08/21 04:00 98.0 F 73 13 154/63 94 L 11/08/21 03:45 84 13 156/63 94 L 11/08/21 03:15 70 1 L 165/69 11/08/21 03:00 64 7 L 166/71 98 11/08/21 02:45 67 13 162/58 98 11/08/21 02:30 56 L 8 L 164/61 97 11/08/21 02:15 61 12 150/68 98 11/08/21 02:00 63 10 L 153/60 98 11/08/21 01:45 58 L 8 L 145/66 98 11/08/21 01:30 59 L 10 L 162/60 97 11/08/21 01:15 66 12 156/63 97 11/08/21 01:00 66 10 L 167/62 97 11/08/21 00:45 64 12 174/68 97 11/08/21 00:30 60 12 174/68 98 11/08/21 00:22 97.8 F 59 L 10 L 174/68 97 11/08/21 00:08 60 20 149/89 97 11/08/21 00:00 62 20 144/58 97 11/07/21 23:45 59 L 20 145/56 97 11/07/21 23:30 61 18 171/63 97 11/07/21 23:15 70 20 147/68 97 11/07/21 23:00 97.6 F 68 18 136/89 98 11/07/21 22:45 63 18 146/57 97 11/07/21 22:30 62 18 146/57 97 11/07/21 22:15 62 20 148/58 97 11/07/21 22:00 64 20 148/56 97 11/07/21 21:45 65 18 159/62 95 11/07/21 21:30 97.6 F 70 20 145/77 97 11/07/21 21:25 72 20 164/60 97 11/07/21 21:10 74 20 190/68 97 11/07/21 20:55 74 20 166/50 97 11/07/21 20:40 97.5 F L 78 20 177/48 100 Intake and Output 11/07/21 11/08/21 11/08/21 22:59 06:59 14:59 Intake Total 625 300 Output Total 595 590 Balance 30 -290 Intake: IV 625 300 Sodium Chloride 0.9% 1, 200 300 000 ml @ 100 mls/hr IV . Q10H [facility] Rx#:[id number] Sodium Chloride 0.9% 1, 425 000 ml @ 75 mls/hr IV . [id number] [facility] Rx#:[id number] Output: Urine 595 590 Uretheral ([place]) 100 Other: Voiding Method Indwelling Catheter Weight 90.5 kg 90.5 kg No acute distress, profoundly lethargic/somnolent, and very poorly responsive. No respiratory distress. HEENT examination is grossly unremarkable. Neck supple. Full range of motion. No adenopathy thyromegaly or neck vein distention. Cardiovascular examination reveals regular rhythm rate. S1-S2 normal. No S3 or S4. No discernible murmur noted. Heart rate 61 bpm. Lungs reveal clear breath sounds. Breath sounds are equal bilaterally. No adventitious lung sounds including wheezes rhonchi or crackles. Resting room air saturation is 95%. Abdomen soft bowel sounds are heard. No masses or tenderness. Extremities are intact. No cyanosis clubbing or edema. Skin is without rash or lesion. Neurologic examination is very difficult to assess. Results - Laboratory Findings CBC and BMP: 11/07/21 20:54 11/08/21 05:44 PT/INR, D-dimer PT 10.9 sec (9.0-12.0) 11/07/21 20:54 INR 1.0 (<1.2) 11/07/21 20:54 Abnormal lab findings: Abnormal Labs 11/07/21 11/07/21 11/08/21 20:41 20:54 00:26 Sodium 130 L Potassium 3.2 L Chloride 97 L Carbon Dioxide 21 L BUN 23 H Creatinine 1.22 H Glucose 176 H POC Glucose (mg/dL) 215 H 197 H Total Protein 6.2 L Triglycerides Ur Specific [place] Urine Protein Urine Glucose (UA) Urine Ketones 11/08/21 11/08/21 11/08/21 01:20 05:44 05:50 Sodium 129 L Potassium Chloride Carbon Dioxide BUN 23 H Creatinine 1.17 H Glucose 141 H POC Glucose (mg/dL) 157 H Total Protein Triglycerides 154.00 H Ur Specific [place] >1.050 H Urine Protein Trace H Urine Glucose (UA) Trace H Urine Ketones 2+ H - Diagnostic Findings Chest x-ray: image reviewed Assessment and Plan Assessment: Possible CVA, although CT angiography, brain CT, and brain MRI, have been negative. History of diabetes. History of hypertension. History of hypothyroidism. History of kidney stones. History of skin cancer. Plan: Plan dated 11/08/2021. The patient did receive TPA at 9:17 PM. Currently, she is on room air. She's getting saline at 100 mL an hour. Brain MRI, was negative for anything acute. The patient is poorly responsive. We will continue to follow make recommendations where appropriate. Prognosis is guarded. Labs, x-rays, and medications are all reviewed. Time with Patient: Greater than 30
[2021-11-08 11:52] LABS: Glucose,Whole Blood 134 mg/dL (70-110)
--- NOTE | 2021-11-08 11:52 | P.CRDCN ---
History of Present Illness Consult date: 11/08/21 History of present illness: The patient is an 81-year-old female with past medical history of hypertension, diabetes, and hypothyroidism, who is currently admitted to the hospital with acute CVA. The patient had reported generalized weakness with facial drooping and garbled speech. Initial EKG showed atrial fibrillation, which was not documented in her medical history. She underwent TPA administration with improvement of symptoms. The patient was interviewed and examined resting comfortably in bed. She is lethargic and is only nodding her answers to simple questions. She states she has not followed with a smeller in the past and has no known heart issues. DIAGNOSTICS: EKG shows atrial fibrillation with heart rate at 74. CT of the brain shows no acute process CT of the head and the neck shows no significant abnormality MRI of the brain showed age-related atrophic and chronic small vessel ischemic changes. No acute cranial process at this time Chest x-ray shows mild atelectasis Vital signs: Blood pressure 136/32, heart rate 60, SpO2 94% on room air, respiratory rate 13 Lab data: WBC 6.6, hemoglobin 13.1, hematocrit 30.2, platelet 177, sodium 129, potassium 3.9, BUN 23, creatinine 1.17, AST 26, ALT 22, troponin less than 0.01, triglycerides 154, LDL 42 PAST MEDICAL HISTORY: Hypertension, diabetes, hypothyroidism, dyslipidemia REVIEW OF SYSTEMS: No fever or chills. No cough or expectoration. No diaphoresis. Patient denies headache, dizziness, blurred vision, double vision. Patient denies any stomach discomfort. No nausea, vomiting. No hematochezia. No hematemesis. Denies any black stools or blood in his stools. Denies dysuria or hematuria. No muscle weakness or numbness. No chest pain or chest pressure. PHYSICAL EXAMINATION: This is a 81-year-old female in no apparent distress at the time of my examination. HEENT: Head is atraumatic, normocephalic. Pupils are equal, round. Sclerae anicteric. Conjunctivae are clear. Mucous membranes of the mouth are moist. There is no jugular venous distention. CHEST EXAMINATION: Lungs are clear to auscultation. No chest wall tenderness is noted on palpation or with deep breathing. HEART EXAMINATION: Heart regular rate and rhythm. S1, S2 heard. No murmurs, gallops or rub. ABDOMEN: Soft, nontender. Bowel sounds are heard. No organomegaly noted. EXTREMITIES: 2+ peripheral pulses with no evidence of peripheral edema and no calf tenderness noted. NEUROLOGIC EXAMINATION: Patient is awake, alert and oriented x3. FINAL ASSESSMENT AND PLAN: Acute CVA, no acute process found via imaging Atrial fibrillation, new onset Hypertension, reasonably well controlled History of Diabetes mellitus, check a hemoglobin A1c History of hypothyroidism, check TSH Hyponatremia, likely secondary to diuretic use, hydrochlorothiazide currently on hold Dyslipidemia, on her rosuvastatin PLAN: Resume lisinopril for blood pressure management when needed Patient will be started on novel anticoagulation once cleared by neurology as she received TPA administration Echocardiogram pending Further recommendations will be based on clinical course I am dictating on behalf of Dr Demarcus Stallings's history/physical and assessment/plan. Past Medical History Past Medical History: Cancer, Diabetes Mellitus, Hypertension Additional Past Medical History / Comment(s): hiatal hernia, enlarged kidney, hx kidney stone, postmenopause vaginal bleeding, hx skin cancer, IBS History of Any Multi-Drug Resistant Organisms: None Reported Past Surgical History: Appendectomy, Cholecystectomy Additional Past Surgical History / Comment(s): cataracts Past Anesthesia/Blood Transfusion Reactions: Motion Sickness Past Psychological History: No Psychological Hx Reported Smoking Status: Never smoker Past Alcohol Use History: None Reported Past Drug Use History: None Reported - Past Family History Father Family Medical History: Myocardial Infarction ([place]) Mother Family Medical History: COPD Additional Family Medical History / Comment(s): Alzheimer's Medications and Allergies Home Medications Medication Instructions Recorded Confirmed Type Aspirin 81 mg PO DAILY 01/12/14 11/07/21 History Levothyroxine Sodium [Synthroid] 75 mcg PO DAILY 01/12/14 11/07/21 History hydroCHLOROthiazide [Hydrodiuril] 25 mg PO DAILY 01/12/14 11/07/21 History lisinopriL 40 mg PO DAILY 01/12/14 11/07/21 History Calcium Carbonate [Calcium] 600 mg PO BID 11/07/21 11/07/21 History Cholecalciferol [Vitamin D3 (25 25 mcg PO Q48H 11/07/21 11/07/21 History Mcg = 1000 Iu)] Doxycycline [Vibramycin] 100 mg PO DIRECTED 11/07/21 11/07/21 History Fish Oil/Dha/Epa [Fish Oil 1,200 1 cap PO DAILY 11/07/21 11/07/21 History mg Fish Oil] Glimepiride [Amaryl] 1 mg PO W/BRKFST 11/07/21 11/07/21 History Indomethacin [Indocin] 50 mg PO DIRECTED 11/07/21 11/07/21 History Oxybutynin Chloride 5 mg PO HS 11/07/21 11/07/21 History Rosuvastatin Calcium [Crestor] 5 mg PO HS 11/07/21 11/07/21 History Allergies Allergy/AdvReac Type Severity Reaction Status Date / Time cephalexin [From Keflex] Allergy Nausea & Verified 11/07/21 22:31 Vomiting fenofibrate nanocrystallized Allergy irregular Verified 11/07/21 20:50 [From Tricor] heart rate fenofibrate,micronized Allergy irregular Verified 11/07/21 20:50 [From Tricor] heart rate moxifloxacin [From Vigamox] Allergy Nausea & Verified 11/07/21 22:31 Vomiting AMMONIUM LACTATE Allergy Rash/Hives Uncoded 11/07/21 22:31 adhesive tape AdvReac Rash/Hives Uncoded 11/07/21 20:50 Physical Exam Vitals: Vital Signs Temp Pulse Resp BP Pulse Ox 11/08/21 08:00 97.9 F 65 12 145/50 94 L 11/08/21 07:51 94 L 11/08/21 07:30 58 L 11 L 147/53 93 L 11/08/21 07:00 58 L 11 L 150/53 94 L 11/08/21 06:45 61 10 L 156/61 94 L 11/08/21 06:30 63 11 L 156/59 95 11/08/21 06:15 68 12 162/46 95 11/08/21 06:00 69 12 157/70 93 L 11/08/21 05:45 65 11 L 154/65 94 L 11/08/21 05:30 56 L 11 L 140/76 94 L 11/08/21 05:15 63 11 L 147/70 93 L 11/08/21 05:00 63 12 159/60 92 L 11/08/21 04:45 59 L 11 L 155/49 94 L 11/08/21 04:30 60 11 L 154/58 92 L 11/08/21 04:15 67 12 148/54 93 L 11/08/21 04:00 98.0 F 73 13 154/63 94 L 11/08/21 03:45 84 13 156/63 94 L 11/08/21 03:15 70 1 L 165/69 11/08/21 03:00 64 7 L 166/71 98 11/08/21 02:45 67 13 162/58 98 11/08/21 02:30 56 L 8 L 164/61 97 11/08/21 02:15 61 12 150/68 98 11/08/21 02:00 63 10 L 153/60 98 11/08/21 01:45 58 L 8 L 145/66 98 11/08/21 01:30 59 L 10 L 162/60 97 11/08/21 01:15 66 12 156/63 97 11/08/21 01:00 66 10 L 167/62 97 11/08/21 00:45 64 12 174/68 97 11/08/21 00:30 60 12 174/68 98 11/08/21 00:22 97.8 F 59 L 10 L 174/68 97 11/08/21 00:08 60 20 149/89 97 11/08/21 00:00 62 20 144/58 97 11/07/21 23:45 59 L 20 145/56 97 11/07/21 23:30 61 18 171/63 97 11/07/21 23:15 70 20 147/68 97 11/07/21 23:00 97.6 F 68 18 136/89 98 11/07/21 22:45 63 18 146/57 97 11/07/21 22:30 62 18 146/57 97 11/07/21 22:15 62 20 148/58 97 11/07/21 22:00 64 20 148/56 97 11/07/21 21:45 65 18 159/62 95 11/07/21 21:30 97.6 F 70 20 145/77 97 11/07/21 21:25 72 20 164/60 97 11/07/21 21:10 74 20 190/68 97 11/07/21 20:55 74 20 166/50 97 11/07/21 20:40 97.5 F L 78 20 177/48 100 Intake and Output 11/07/21 11/08/21 11/08/21 22:59 06:59 14:59 Intake Total 625 100 Output Total 595 340 Balance 30 -240 Intake: IV 625 100 Sodium Chloride 0.9% 1, 200 100 000 ml @ 100 mls/hr IV . Q10H [facility] Rx#:[id number] Sodium Chloride 0.9% 1, 425 000 ml @ 75 mls/hr IV . [id number] [facility] Rx#:[id number] Output: Urine 595 340 Uretheral ([place]) 100 Other: Voiding Method Indwelling Catheter Weight 90.5 kg 90.5 kg Results 11/07/21 20:54 11/08/21 05:44 Cardiac Enzymes 11/07/21 11/07/21 Range/Units 20:54 20:54 AST 26 (14-36) U/L Troponin I <0.012 (0.000-0.034) ng/mL Coagulation 11/07/21 Range/Units 20:54 PT 10.9 (9.0-12.0) sec APTT 22.5 (22.0-30.0) sec CBC 11/07/21 Range/Units 20:54 WBC 6.6 (3.8-10.6) k/uL RBC 4.43 (3.80-5.40) m/uL Hgb 13.1 (11.4-16.0) gm/dL Hct 38.2 (34.0-46.0) % Plt Count 177 (150-450) k/uL Comprehensive Metabolic Panel 11/07/21 11/08/21 Range/Units 20:54 05:44 Sodium 130 L 129 L (137-145) mmol/L Potassium 3.2 L 3.9 (3.5-5.1) mmol/L Chloride 97 L 98 (98-107) mmol/L Carbon Dioxide 21 L 23 (22-30) mmol/L BUN 23 H 23 H (7-17) mg/dL Creatinine 1.22 H 1.17 H (0.52-1.04) mg/dL Glucose 176 H 141 H (74-99) mg/dL Calcium 9.6 9.3 (8.4-10.2) mg/dL AST 26 (14-36) U/L ALT 22 (4-34) U/L Alkaline Phosphatase 53 (38-126) U/L Total Protein 6.2 L (6.3-8.2) g/dL Albumin 3.9 (3.5-5.0) g/dL Current Medications Generic Name Dose Route Start Last Admin Trade Name Freq PRN Reason Stop Dose Admin Nicardipine HCl 20 mg/ Sodium 200 mls @ 50 mls/hr 11/07/21 21:30 11/08/21 05:11 Chloride IV Not Given .Q4H [facility] Protocol 5 MG/HR Sodium Chloride 1,000 mls @ 100 mls/hr 11/08/21 04:00 11/08/21 08:36 Saline 0.9% IV 100 mls/hr .Q10H [facility] Administration Insulin Aspart 0 unit 11/08/21 06:00 11/08/21 05:54 Insulin Aspart (Novolog) 100 Unit/Ml Vial SQ 1 unit Q6H [facility] Administration Protocol Miscellaneous Information 1 each 11/07/21 20:44 Alteplase Per Pharmacy Stroke 1 Each [facility] MISCELLANE DIRECTED PRN Stroke Intake and Output 11/07/21 11/08/21 11/08/21 22:59 06:59 14:59 Intake Total 625 100 Output Total 595 340 Balance 30 -240 Intake: IV 625 100 Sodium Chloride 0.9% 1, 200 100 000 ml @ 100 mls/hr IV . Q10H [facility] Rx#:[id number] Sodium Chloride 0.9% 1, 425 000 ml @ 75 mls/hr IV . [id number] [facility] Rx#:[id number] Output: Urine 595 340 Uretheral ([place]) 100 Other: Voiding Method Indwelling Catheter Weight 90.5 kg 90.5 kg 11/07/21 20:54 11/08/21 05:44
--- NOTE | 2021-11-08 13:48 | P.PN ---
Subjective Progress Note Date: 11/08/21 Principal diagnosis: Encephalopathy There is an 81-year-old with a history of diabetes recent gout presented with lethargy, the patient's son stated some lightheadedness and confusion over the last weeks. Emergency room patient was found to be in atrial fibrillation with an an HSS score of 7. The patient received TPA after being screened by neurology initially patient NIH score improved from 9-6/7 on the patient clinically worsened she was admitted to the medical intensive care unit. The patient overnight remains lethargic with minimal responsiveness Objective - Vital Signs Vital signs: Vital Signs Temp 97.6 F 11/08/21 12:00 Pulse 74 11/08/21 12:00 Resp 12 11/08/21 12:00 BP 161/70 11/08/21 12:00 Pulse Ox 94 L 11/08/21 12:00 FiO2 Intake & Output 11/07/21 11/08/21 11/08/21 18:59 06:59 18:59 Intake Total 625 500 Output Total 595 785 Balance 30 -285 Weight 90.5 kg Intake: IV 625 500 Sodium Chloride 0.9% 1, 200 500 000 ml @ 100 mls/hr IV . Q10H [facility] Rx#:[id number] Sodium Chloride 0.9% 1, 425 000 ml @ 75 mls/hr IV . [id number] [facility] Rx#:[id number] Output: Urine 595 785 Uretheral ([place]) 100 Other: Voiding Method Indwelling Catheter - Constitutional Constitutional Comment(s): responsive to pain, does not open eyes or follow commands - Respiratory Respiratory: bilateral: diminished - Cardiovascular Rhythm: regular - Gastrointestinal General gastrointestinal: Present: normal bowel sounds - Genitourinary Genitourinary Comment(s): [place] - Integumentary Integumentary: Present: normal - Neurologic Neurologic Comment(s): not following commands - Psychiatric Psychiatric Comment(s): responsive to pain - Labs CBC & Chem 7: 11/07/21 20:54 11/08/21 05:44 Labs: Abnormal Lab Results - Last 24 Hours (Table) 11/07/21 11/07/21 11/08/21 Range/Units 20:41 20:54 00:26 Sodium 130 L (137-145) mmol/L Potassium 3.2 L (3.5-5.1) mmol/L Chloride 97 L (98-107) mmol/L Carbon Dioxide 21 L (22-30) mmol/L BUN 23 H (7-17) mg/dL Creatinine 1.22 H (0.52-1.04) mg/dL Glucose 176 H (74-99) mg/dL POC Glucose (mg/dL) 215 H 197 H (70-110) mg/dL Total Protein 6.2 L (6.3-8.2) g/dL Triglycerides (0.00-149.00) mg/dL Ur Specific [place] (1.001-1.035) Urine Protein (Negative) Urine Glucose (UA) (Negative) Urine Ketones (Negative) 11/08/21 11/08/21 11/08/21 Range/Units 01:20 05:44 05:50 Sodium 129 L (137-145) mmol/L Potassium (3.5-5.1) mmol/L Chloride (98-107) mmol/L Carbon Dioxide (22-30) mmol/L BUN 23 H (7-17) mg/dL Creatinine 1.17 H (0.52-1.04) mg/dL Glucose 141 H (74-99) mg/dL POC Glucose (mg/dL) 157 H (70-110) mg/dL Total Protein (6.3-8.2) g/dL Triglycerides 154.00 H (0.00-149.00) mg/dL Ur Specific [place] >1.050 H (1.001-1.035) Urine Protein Trace H (Negative) Urine Glucose (UA) Trace H (Negative) Urine Ketones 2+ H (Negative) 11/08/21 Range/Units 11:50 Sodium (137-145) mmol/L Potassium (3.5-5.1) mmol/L Chloride (98-107) mmol/L Carbon Dioxide (22-30) mmol/L BUN (7-17) mg/dL Creatinine (0.52-1.04) mg/dL Glucose (74-99) mg/dL POC Glucose (mg/dL) 134 H (70-110) mg/dL Total Protein (6.3-8.2) g/dL Triglycerides (0.00-149.00) mg/dL Ur Specific [place] (1.001-1.035) Urine Protein (Negative) Urine Glucose (UA) (Negative) Urine Ketones (Negative) - Imaging and Cardiology CT Scan - head: report reviewed MRI - head: report reviewed Assessment and Plan (1) Encephalopathy Narrative/Plan: Patient encephalopathy clear evidence of acute findings on MRI or CTA. Discuss with neurologist, oral, active talk to address family's concerns. Urinalysis was reviewed there is no evidence of infection. EEG was ordered currently pending. Continue to monitor patient closely, appreciate neurology, cardiology, pulmonary implant. Continue to monitor neuro status checks, keep patient nothing by mouth, avoid further workup as above. Current Visit: Yes Status: Acute Code(s): G93.40 - ENCEPHALOPATHY, UNSPECIFIED SNOMED Code(s): 92667768 (2) Atrial fibrillation, new onset Narrative/Plan: Appreciate cardiology input plan for anticoagulation when okay with Neurology. Current Visit: Yes Status: Acute Code(s): I48.91 - UNSPECIFIED ATRIAL FIBRILLATION SNOMED Code(s): 21519064 (3) CVA (cerebral vascular accident) Narrative/Plan: Status post TPA administration continue to monitor per protocol Current Visit: Yes Status: Acute Code(s): I63.9 - CEREBRAL INFARCTION, UNSPECIFIED SNOMED Code(s): 594456684 (4) Weakness Narrative/Plan: Will order PT OT when patient is more alert continue to monitor closely Current Visit: Yes Status: Acute Code(s): R53.1 - WEAKNESS SNOMED Code(s): 05717290
--- NOTE | 2021-11-08 14:21 | P.CNNES ---
History of Present Illness Consult date: 11/08/21 Reason for Consult: stroke status post TPA History of Present Illness: The patient is an 83-year-old female who is seen in neurologic c onsultation on November 08, 2021, via telemedicine. History is obtained entirely from the chart. The nurses at the bedside. She does report that the patient was awake at 6:15 AM this morning, and stated "where am I ?" Since that time, the patient has been very poorly responsive. In the emergency department last p.m., the patient was reportedly awake and talking initially. Her mental status continued to deteriorate as the night when on. The patient was reportedly poorly responsive throughout the night. Because of this decrease in responsiveness, the patient had a second CT scan of the brain and CT angiogram of the head and neck. Both of these tests were negative. The initial imaging in the emergency department was also negative. In the ER, the patient had no contraindication to TPA. She was within the time window. She was not taking any anticoagulants. The stroke team was contacted and TPA was given. The patient's NIH stroke scale score was reported to be 7. As previously stated, the patient's condition continued to worsen and so repeat imaging was obtained, per stroke team and also discussion with Dr. Elliott. In the emergency department, the patient was found to be in atrial fibrillation. According to the patient's son, who is at the bedside, the patient reportedly had 1 episode of atrial fibrillation, many years ago. She was not started on Ticlid regulation at that time. The patient was seen earlier in the day, yesterday by her primary care physician, because of a flareup of gout. She was started on indomethacin. According to the patient's son, the patient had been having episodes of dizziness, for the past couple weeks. She did see her primary care physician about this and a CT scan of the brain was ordered at that time. Again, the imaging was negative. Upon revisit of patient this morning, family is at the bedside. The son verifies the above stated history. Family is concerned that the patient is still very poorly responsive. The patient has no history of similar events. There is no history of seizure. Review of Systems Unable to obtain secondary to mental status of patient Past Medical History Past Medical History: Cancer, Diabetes Mellitus, Hypertension Additional Past Medical History / Comment(s): hiatal hernia, enlarged kidney, hx kidney stone, postmenopause vaginal bleeding, hx skin cancer, IBS History of Any Multi-Drug Resistant Organisms: None Reported Past Surgical History: Appendectomy, Cholecystectomy Additional Past Surgical History / Comment(s): cataracts Past Anesthesia/Blood Transfusion Reactions: Motion Sickness Past Psychological History: No Psychological Hx Reported Smoking Status: Never smoker Past Alcohol Use History: None Reported Past Drug Use History: None Reported - Past Family History Father Family Medical History: Myocardial Infarction (ME) Mother Family Medical History: COPD Additional Family Medical History / Comment(s): Alzheimer's Medications and Allergies Home Medications Medication Instructions Recorded Confirmed Type Aspirin 81 mg PO DAILY 01/12/14 11/07/21 History Levothyroxine Sodium [Synthroid] 75 mcg PO DAILY 01/12/14 11/07/21 History hydroCHLOROthiazide [Hydrodiuril] 25 mg PO DAILY 01/12/14 11/07/21 History lisinopriL 40 mg PO DAILY 01/12/14 11/07/21 History Calcium Carbonate [Calcium] 600 mg PO BID 11/07/21 11/07/21 History Cholecalciferol [Vitamin D3 (25 25 mcg PO Q48H 11/07/21 11/07/21 History Mcg = 1000 Iu)] Doxycycline [Vibramycin] 100 mg PO DIRECTED 11/07/21 11/07/21 History Fish Oil/Dha/Epa [Fish Oil 1,200 1 cap PO DAILY 11/07/21 11/07/21 History mg Fish Oil] Glimepiride [Amaryl] 1 mg PO W/BRKFST 11/07/21 11/07/21 History Indomethacin [Indocin] 50 mg PO DIRECTED 11/07/21 11/07/21 History Oxybutynin Chloride 5 mg PO HS 11/07/21 11/07/21 History Rosuvastatin Calcium [Crestor] 5 mg PO HS 11/07/21 11/07/21 History Allergies Allergy/AdvReac Type Severity Reaction Status Date / Time cephalexin [From Keflex] Allergy Nausea & Verified 11/07/21 22:31 Vomiting fenofibrate nanocrystallized Allergy irregular Verified 11/07/21 20:50 [From Tricor] heart rate fenofibrate,micronized Allergy irregular Verified 11/07/21 20:50 [From Tricor] heart rate moxifloxacin [From Vigamox] Allergy Nausea & Verified 11/07/21 22:31 Vomiting AMMONIUM LACTATE Allergy Rash/Hives Uncoded 11/07/21 22:31 adhesive tape AdvReac Rash/Hives Uncoded 11/07/21 20:50 Physical Examination - Vital Signs Vital Signs: Vital Signs Temp Pulse Resp BP Pulse Ox 11/08/21 08:00 97.9 F 65 12 145/50 94 L 11/08/21 07:51 94 L 11/08/21 07:30 58 L 11 L 147/53 93 L 11/08/21 07:00 58 L 11 L 150/53 94 L 11/08/21 06:45 61 10 L 156/61 94 L 11/08/21 06:30 63 11 L 156/59 95 11/08/21 06:15 68 12 162/46 95 11/08/21 06:00 69 12 157/70 93 L 11/08/21 05:45 65 11 L 154/65 94 L 11/08/21 05:30 56 L 11 L 140/76 94 L 11/08/21 05:15 63 11 L 147/70 93 L 11/08/21 05:00 63 12 159/60 92 L 11/08/21 04:45 59 L 11 L 155/49 94 L 11/08/21 04:30 60 11 L 154/58 92 L 11/08/21 04:15 67 12 148/54 93 L 11/08/21 04:00 98.0 F 73 13 154/63 94 L 11/08/21 03:45 84 13 156/63 94 L 11/08/21 03:15 70 1 L 165/69 11/08/21 03:00 64 7 L 166/71 98 11/08/21 02:45 67 13 162/58 98 11/08/21 02:30 56 L 8 L 164/61 97 11/08/21 02:15 61 12 150/68 98 11/08/21 02:00 63 10 L 153/60 98 11/08/21 01:45 58 L 8 L 145/66 98 11/08/21 01:30 59 L 10 L 162/60 97 11/08/21 01:15 66 12 156/63 97 11/08/21 01:00 66 10 L 167/62 97 11/08/21 00:45 64 12 174/68 97 11/08/21 00:30 60 12 174/68 98 11/08/21 00:22 97.8 F 59 L 10 L 174/68 97 11/08/21 00:08 60 20 149/89 97 11/08/21 00:00 62 20 144/58 97 11/07/21 23:45 59 L 20 145/56 97 11/07/21 23:30 61 18 171/63 97 11/07/21 23:15 70 20 147/68 97 11/07/21 23:00 97.6 F 68 18 136/89 98 11/07/21 22:45 63 18 146/57 97 11/07/21 22:30 62 18 146/57 97 11/07/21 22:15 62 20 148/58 97 11/07/21 22:00 64 20 148/56 97 11/07/21 21:45 65 18 159/62 95 11/07/21 21:30 97.6 F 70 20 145/77 97 11/07/21 21:25 72 20 164/60 97 11/07/21 21:10 74 20 190/68 97 11/07/21 20:55 74 20 166/50 97 11/07/21 20:40 97.5 F L 78 20 177/48 100 Intake and Output 11/07/21 11/08/21 11/08/21 22:59 06:59 14:59 Intake Total 625 100 Output Total 595 340 Balance 30 -240 Intake: IV 625 100 Sodium Chloride 0.9% 1, 200 100 000 ml @ 100 mls/hr IV . Q10H [facility] Rx#:[id number] Sodium Chloride 0.9% 1, 425 000 ml @ 75 mls/hr IV . [id number] [facility] Rx#:[id number] Output: Urine 595 340 Uretheral (Albarran) 100 Other: Voiding Method Indwelling Catheter Weight 90.5 kg 90.5 kg Gen.: The patient is reclining in the bed. She is in no acute distress. HEENT: Head is atraumatic, normocephalic. Fundus not visualized. There is no scleral icterus. Mucous membranes are moist. Neck: Supple, without carotid bruits. There is no nuchal rigidity. Heart: Regular rate and rhythm Extremities: Without edema Neurological examination Mental status: The patient attempts to open her eyes when her name is called. She attempts to say her name. She follows some, simple commands. She is able to wiggle the fingers on her left hand > Right hand. She is able to wiggle the toes on her left foot. The patient does not withdraw from noxious stimulation. There is no grimace in response to noxious stimulation. Cranial nerves: Pupils are equal at 2 mm. The patient has difficulty keeping her eyes open. There is fluttering of the eyelids. There is resistance to passive eye opening. Visual delaney are not assessed. Extraocular movements are not assessed. There is slight flattening of the left nasolabial fold. Gag reflex is intact. Motor: Processor Grain strength is equal, but weak bilaterally. There is minimal movement of the toes bilaterally. When each arm is held over the patient's face, and released, there is tone in the arm and it lands beside the patient's face. Sensation: The patient does not withdraw or grimace in response to noxious stimulation. There is localization of noxious stimulation to the great toes bilaterally. Deep tendon reflexes: 2+/4+ in the bilateral upper extremities. Left patellar reflex 3+/4+. Right patellar reflex 2+/4+. Plantar responses are extensor bilaterally. Coordination: Not assessed NIH score is difficult to accurately assess secondary to unresponsiveness. Certainly is greater than 7 which is the reported number from the emergency department. This examination was carried out on 2 separate occasions. There is slight difference between the exams, however nothing substantial. Results - Laboratory Findings CBC and BMP: 11/07/21 20:54 11/08/21 05:44 Abnormal Lab Findings: Abnormal Labs 11/07/21 11/07/21 11/08/21 20:41 20:54 00:26 Sodium 130 L Potassium 3.2 L Chloride 97 L Carbon Dioxide 21 L BUN 23 H Creatinine 1.22 H Glucose 176 H POC Glucose (mg/dL) 215 H 197 H Total Protein 6.2 L Ur Specific [place] Urine Protein Urine Glucose (UA) Urine Ketones 11/08/21 11/08/21 11/08/21 01:20 05:44 05:50 Sodium 129 L Potassium Chloride Carbon Dioxide BUN 23 H Creatinine 1.17 H Glucose 141 H POC Glucose (mg/dL) 157 H Total Protein Ur Specific [place] >1.050 H Urine Protein Trace H Urine Glucose (UA) Trace H Urine Ketones 2+ H - Diagnostic Findings Comments: MRI of the brain images were personally reviewed. There is no evidence of acute stroke or hemorrhage. Assessment and Plan Assessment: 1. Mental status changes, presenting as stroke to the emergency department. Patient is status post TPA. Repeat head CT because of worsening mental status, revealed no acute changes. MRI of the brain reveals no signs of acute hemorrhage or infarct. Etiology of current poor responsiveness is unknown. Consider seizure versus infection (doubt) versus psych 2. Hyponatremia 3. Atrial fibrillation, new onset 4. History of hypertension 5. History of diabetes mellitus Plan: 1. Stat EEG 2. Check ammonia level, check for Covid 19 infection, check for hypoxemia 3. Stroke, status post TPA order set-including lipid panel, hemoglobin A1c, 2-D echocardiogram, speech therapy consultation, PT and OT consultations 4. Consider anticoagulation when patient is neurologically stable 5. High intensity statin 6. Consider changing diabetic medication to GLP-RA or SGLT-2i for greater stroke prevention Thank you for allowing us to participate in the care of this patient. Further recommendations will be made following the completion of the EEG Time with Patient: Greater than 30 (spent 60 minutes with patient and family in the intensive care unit via telemedicine)
[2021-11-08] MEDS ORDERED: KETOROLAC 15 MG/ML 1 ML VIAL IVP STA (15:22)
[2021-11-08] MEDS: ACETAMINOPHEN IV (For NPO) 1,000 MG in EMPTY BAG 1 BAG IVPB PRN ×2 (17:14→23:30)
[2021-11-08 18:10] LABS: Glucose,Whole Blood 113 mg/dL (70-110)
--- NOTE | 2021-11-08 18:16 | CT ---
EXAMINATION TYPE: CT brain wo con DATE OF EXAM: 11/08/2021 COMPARISON: Today HISTORY: posterior FIGUEROA CT DLP: 1141.4 mGycm Automated exposure control for dose reduction was used. Images of the brain obtained with no contrast. There is mild cerebral atrophy. There is no mass effect or midline shift. No sign of intracranial hem orrhage. Calvarium is intact. There is mucosal thickening left maxillary sinus. IMPRESSION: Mild cerebral atrophy. No acute intracranial abnormality. No change from
--- NOTE | 2021-11-08 18:44 | P.PN ---
Progress Note - Text Progress Note Date: 11/08/21 Patient is seen again in follow-up she was more responsive responding to verbal stimuli in her eyes complaining of posterior head pain. Patient received Toradol per neurology and then IV Tylenol. I had a discussion with neurology on-call patient had an EEG but the image was unable to be interpreted because of technical difficulties. Attempt was made to transfer patient to a tertiary facility however transfer not accepted by the tertiary facility. Will reevaluate in a.m. and make another attempt depending on patient's clinical progress. Repeat CT of the head was done which did not show any acute change.
[2021-11-08] MEDS ORDERED: ACYCLOVIR SODIUM 700 MG in SODIUM CHLORIDE 0.9% 100 ML IV ONE (19:45)
[2021-11-08 23:28] LABS: Glucose,Whole Blood 126 mg/dL (70-110)
[2021-11-09] MEDS: INSULIN ASPART (NovoLOG) 100 UNIT/ML VIAL SQ SCH ×4 (00:42→18:27)
[2021-11-09] MEDS: niCARdipine 20 MG in SODIUM CHLORIDE 0.9% 192 ML IV SCH ×3 (01:25→14:05)
[2021-11-09 05:59] LABS: Glucose,Whole Blood 122 mg/dL (70-110)
[2021-11-09] MEDS: ACETAMINOPHEN IV (For NPO) 1,000 MG in EMPTY BAG 1 BAG IVPB PRN (08:22)
--- NOTE | 2021-11-09 10:31 | P.PN ---
Subjective Progress Note Date: 11/09/21 Principal diagnosis: Possible CVA. Pulmonary consultation dated 11/08/2021. 81-year-old female who presents to the emergency department on November 07, with weakness, strokelike symptoms, and mental status changes. She was brought in by EMS. The patient does have a history of hypertension, diabetes, and hypothyroidism. She initially complained of generalized weakness. The patient was also noted to have a left facial droop, with garbled speech. Her initial NIH score was between 7 and 9. Subsequent to that, the NIH score increased to 16. The patient did receive TPA at night 11 PM. The patient was scheduled for an MRI scan today. Currently, she is in the intensive care unit, room 261. She's getting saline at 100 mL an hour, without any supplemental oxygen. No respiratory distress, but the patient is very poorly responsive, very lethargic and somnolent. CBC was normal. Coagulation profile was normal. Sodium 129, potassium 3.9, chlorides 98, CO2 23, BUN 23, and creatinine 1.17. Brain CT showed age-related changes, but nothing acute. CT angiography of the head and neck, did not show anything acute. Chest x-ray showed some bibasilar atelectasis. Repeat CT scans of the brain, CT angiography, and MRI, failed to reveal anything acute. Progress note dated 11/09/2021. 81-year-old female seen yesterday in consultation. Received my note above. She still in the intensive care unit, room 261. She came in with strokelike symptoms. The patient did receive TPA. She's currently on room air. She's getting saline at 100 mL an hour. Yesterday, she was very poorly responsive. Today, she is much more improved, opens her eyes, and is able to speak in full sentences. All her scans have been negative thus far. No new labs today. Another brain CT has been ordered. Objective - Vital Signs Vital signs: Vital Signs Temp 98.5 F 11/09/21 10:00 Pulse 76 11/09/21 10:00 Resp 20 11/09/21 10:00 BP 151/61 11/09/21 10:00 Pulse Ox 94 L 11/09/21 10:00 FiO2 Intake & Output 07/16/22 07/17/22 07/17/22 18:59 06:59 18:59 Intake Total 1150 1200 400 Output Total 1210 320 140 Balance -60 880 260 Weight 95.8 kg Intake: IV 1050 1200 400 Sodium Chloride 0.9% 1, 1050 1200 400 000 ml @ 100 mls/hr IV . Q10H [facility] Rx#:[id number] Intake, IV Titration 100 Amount ACETAMINOPHEN IV (For NPO 100 ) 1,000 mg In Empty Bag 1 bag @ 400 mls/hr IVPB Q6HR [facility] Rx#:[id number] Output: Urine 1210 320 140 Other: Voiding Method Indwelling Catheter Indwelling Catheter - Exam No acute distress, no respiratory distress, but much more awake and alert today. HEENT examination is grossly unremarkable. Neck supple. Full range of motion. No adenopathy thyromegaly or neck vein distention. Cardiovascular examination reveals regular rhythm rate. S1-S2 normal. No S3 or S4. No discernible murmur noted. Heart rate 76 bpm. Lungs reveal clear breath sounds. Breath sounds are equal bilaterally. No adventitious lung sounds including wheezes rhonchi or crackles. Resting room air saturation is 94%. Abdomen soft bowel sounds are heard. No masses or tenderness. Extremities are intact. No cyanosis clubbing or edema. Skin is without rash or lesion. Neurologic examination is much improved. Patient is much more awake and alert. He can verbally respond. She can open her eyes. She does move all 4 extremities. - Labs CBC & Chem 7: 11/07/21 20:54 11/08/21 05:44 Labs: Abnormal Lab Results - Last 24 Hours (Table) 11/08/21 11/08/21 11/08/21 Range/Units 11:50 11:52 18:09 POC Glucose (mg/dL) 134 H 113 H (70-110) mg/dL Hemoglobin A1c 6.2 H (0.0-6.0) % 11/08/21 11/09/21 Range/Units 23:26 05:57 POC Glucose (mg/dL) 126 H 122 H (70-110) mg/dL Hemoglobin A1c (0.0-6.0) % Assessment and Plan Assessment: Possible CVA, although CT angiography, brain CT, and brain MRI, have been negative. Neurologic examination today is much improved. Status post TPA for presumed CVA. History of diabetes. History of hypertension. History of hypothyroidism. History of kidney stones. History of skin cancer. Plan: Plan dated 11/08/2021. The patient did receive TPA at 9:17 PM. Currently, she is on room air. She's getting saline at 100 mL an hour. Brain MRI, was negative for anything acute. The patient is poorly responsive. We will continue to follow make recommendations where appropriate. Prognosis is guarded. Labs, x-rays, and medications are all reviewed. Plan dated 11/09/2021. The patient's much improved today. She is able to open her eyes, and speak in full sentences. She's able to move all 4 extremities. All her scans thus far have been negative and have not shown anything acute. She did receive TPA. The patient can be transferred out of the intensive care unit. No additional recommendations are made. Moving forward, the patient will be seen only as needed. Time with Patient: Less than 30
--- NOTE | 2021-11-09 10:32 | P.PN ---
Subjective Progress Note Date: 11/09/21 The patient is seen in neurologic follow-up on November 09, 2021, via teleneurology. Chart notes from yesterday have been reviewed. Apparently the patient was not accepted for transfer to several different facilities. Transfer had been requested by the epidural pathologist who attempted to retrieve the patient's EEG, unsuccessfully, because of marked artifact. He was concerned and felt that the patient should be transferred for continuous EEG monitoring, in light of her unresponsiveness. MRI of the brain did not give any indication as to the reason for the patient's unresponsiveness. There is no evidence of hemorrhage or acute infarct. Laboratory evaluations did not indicator reason for the patient's unresponsiveness. Patient was hyponatremic however not to the degree that would be expected to cause unresponsiveness. The hyponatremia could be a cause for seizure over again, was not to the degree that would be expected to cause seizure. This morning, the patient is seated in the bedside chair. She reportedly stood and assisted with transfer to the bedside chair. She is awake. She reports feeling "crazy". She continues to be slightly confused. The patient does not recall events surrounding her admission. She does not recall events of yesterday. Objective - Vital Signs Vital signs: Vital Signs Temp 98.0 F 11/09/21 04:00 Pulse 80 11/09/21 08:00 Resp 13 11/09/21 08:00 BP 120/54 11/09/21 08:00 Pulse Ox 95 11/09/21 08:00 FiO2 Intake & Output 11/08/21 11/09/21 11/09/21 18:59 06:59 18:59 Intake Total 1150 1200 200 Output Total 1210 320 95 Balance -60 880 105 Weight 95.8 kg Intake: IV 1050 1200 200 Sodium Chloride 0.9% 1, 1050 1200 200 000 ml @ 100 mls/hr IV . Q10H [facility] Rx#:[id number] Intake, IV Titration 100 Amount ACETAMINOPHEN IV (For NPO 100 ) 1,000 mg In Empty Bag 1 bag @ 400 mls/hr IVPB Q6HR PRN Rx#:[id number] Output: Urine 1210 320 95 Other: Voiding Method Indwelling Catheter Indwelling Catheter - Exam Gen.: The patient is seated in the bedside chair. She is well-nourished. She is in no acute distress. HEENT: Head is atraumatic, normocephalic. Fundus not visualized. There is no scleral icterus. Mucous membranes are moist. Neck: Supple. There is no nuchal rigidity. There is tenderness to palpation of the neck, at the craniocervical junction. There are no carotid bruits Heart: Regular rate and rhythm Neurological examination Mental status: The patient is awake and alert. She is able to state her name, date of , age, month and location. She states that the year is "2020". Her speech is slightly hesitant. Cranial nerves: Pupils are equal at 3 mm and reactive. Other cranial nerves are intact. Motor: Tar Roofer strength is equal. The patient is able to raise both arms over her head. - Labs CBC & Chem 7: 11/07/21 20:54 11/08/21 05:44 Labs: Abnormal Lab Results - Last 24 Hours (Table) 11/08/21 11/08/21 11/08/21 Range/Units 05:44 11:50 11:52 POC Glucose (mg/dL) 134 H (70-110) mg/dL Hemoglobin A1c 6.2 H (0.0-6.0) % Triglycerides 154.00 H (0.00-149.00) mg/dL 11/08/21 11/08/21 11/09/21 Range/Units 18:09 23:26 05:57 POC Glucose (mg/dL) 113 H 126 H 122 H (70-110) mg/dL Hemoglobin A1c (0.0-6.0) % Triglycerides (0.00-149.00) mg/dL Assessment and Plan Assessment: 1. Mental status changes, presenting as stroke to the emergency department. Patient is status post TPA. Repeat head CT because of worsening mental status, revealed no acute changes. MRI of the brain reveals no signs of acute hemorrhage or infarct. Mental status has improved today areas etiology of yesterday's mental status changes remains unknown. Seizure and/or postictal state continue to be considered. Doubt stroke 2. Hyponatremia 3. Atrial fibrillation, new onset 4. History of hypertension 5. History of diabetes mellitus Plan: 1. Continue supportive care 2. Consider repeat EEG on Wednesday or on-site reading of EEG which was performed 3. Continue to reorient patient 4. Monitor for any signs of mental status changes and/or seizure 5. Continue stroke workup Dr. Iglesias will assume neurologic coverage of this patient as of November 10, 2021 Time with Patient: Greater than 30 (spent 35 minutes with patient via telemedicine)
--- NOTE | 2021-11-09 11:01 | P.PN ---
Subjective Progress Note Date: 11/09/21 The patient is an 81-year-old female who is currently admitted to the hospital with acute CVA. Over the last 24 hours the patient has become much more alert and responsive. She states she does not remember her initial presentation to the hospital. Overnight she states she rested well. She has no complaints. No chest pain or chest pressure. No difficulty breathing. She is lying comfortably in bed. She has no residual weakness, however has not yet ambulated. GENERAL: Well-appearing, well-nourished and in no acute distress. NECK: Supple without JVD or thyromegaly. LUNGS: Breath sounds clear to auscultation bilaterally. Respiration equal and unlabored. No wheezes, rales or rhonchi. HEART: Regular rate and rhythm without murmurs, rubs or gallops. S1 and S2 heard. EXTREMITIES: Normal range of motion, no edema. No clubbing or cyanosis. Peripheral pulses intact and strong. VITALS: Blood pressure 120/54, pulse 80, respiratory rate 13, SpO2 95% on room air TELEMETRY: Sinus rhythm overnight IMPRESSION: Acute CVA, status post TPA administration New-onset of atrial fibrillation, currently in sinus rhythm Hypertension, resume lisinopril once cleared by speech Hyponatremia, likely secondary to diuretic use Dyslipidemia on statin History of diabetes, hemoglobin A1c 6.2 PLAN: Start anticoagulation when cleared by neurology Resume lisinopril when patient passes swallow screen Awaiting echo results Outpatient follow-up with Dr. Stallings for A. fib management I am dictating on behalf of Dr Demarcus Stallings's history/physical and assessment/plan. Objective - Vital Signs Vital signs: Vital Signs Temp 98.5 F 11/09/21 10:00 Pulse 76 11/09/21 10:00 Resp 20 11/09/21 10:00 BP 151/61 11/09/21 10:00 Pulse Ox 94 L 11/09/21 10:00 FiO2 Intake & Output 11/08/21 11/09/21 11/09/21 18:59 06:59 18:59 Intake Total 1150 1200 400 Output Total 1210 320 140 Balance -60 880 260 Weight 95.8 kg Intake: IV 1050 1200 400 Sodium Chloride 0.9% 1, 1050 1200 400 000 ml @ 100 mls/hr IV . Q10H [facility] Rx#:[id number] Intake, IV Titration 100 Amount ACETAMINOPHEN IV (For NPO 100 ) 1,000 mg In Empty Bag 1 bag @ 400 mls/hr IVPB Q6HR [facility] Rx#:[id number] Output: Urine 1210 320 140 Other: Voiding Method Indwelling Catheter Indwelling Catheter - Labs CBC & Chem 7: 11/07/21 20:54 11/08/21 05:44 Labs: Abnormal Lab Results - Last 24 Hours (Table) 11/08/21 11/08/21 11/08/21 Range/Units 11:50 11:52 18:09 POC Glucose (mg/dL) 134 H 113 H (70-110) mg/dL Hemoglobin A1c 6.2 H (0.0-6.0) % 11/08/21 11/09/21 Range/Units 23:26 05:57 POC Glucose (mg/dL) 126 H 122 H (70-110) mg/dL Hemoglobin A1c (0.0-6.0) %
--- NOTE | 2021-11-09 11:23 | CA ---
Transthoracic Echo Report Name: Za Van Age: 81 Gender: F : 1940 Exam Date: 11/08/2021 11:00 Exam Location: [facility] Ht (in): 65 Wt (lb): 199 Ordering Physician: Jean-Pierre Rasmussen MD Attending/Referring Phys: Operational Trainer Tosha De Souza RDCS Procedure CPT: Indications: a. fib Cardiac Hx: Technical Quality: Good Contrast 1: Total Dose (mL): Contrast 2: Total Dose (mL): MEASUREMENTS (Male / Female) Normal Values 2D ECHO LV Diastolic Diameter PLAX 4.9 cm 4.2 - 5.9 / 3.9 - 5.3 cm LV Systolic Diameter PLAX 4.8 cm IVS Diastolic Thickness 1.1 cm 0.6 - 1.0 / 0.6 - 0.9 cm LVPW Diastolic Thickness 1.8 cm 0.6 - 1.0 / 0.6 - 0.9 cm LV Relative Wall Thickness 0.6 LVOT Diameter 3.8 cm LA Systolic Diameter LX 4.3 cm 3.0 - 4.0 / 2.7 - 3.8 cm M-MODE Aortic Root Diameter MM 2.8 cm LA Systolic Diameter MM 3.9 cm LA Ao Ratio MM 1.4 MV E Point Septal Separation 0.9 cm AV Cusp Separation MM 1.8 cm DOPPLER MV Area PHT 1.9 cm??? Mitral E Point Velocity 44.7 cm/s Mitral A Point Velocity 93.0 cm/s Mitral E to A Ratio 0.5 MV Deceleration Time 393.1 ms MV E' Velocity 5.0 cm/s Mitral E to MV E' Ratio 8.9 FINDINGS Left Ventricle Left ventricular ejection fraction is estimated at 45-50%. Right Ventricle Normal right ventricular size and function. Right Atrium Normal right atrial size. Left Atrium Moderately increased left atrial diameter. Mitral Valve Structurally normal mitral valve. Mild mitral regurgitation. Aortic Valve Trileaflet aortic valve. Tricuspid Valve Structurally normal tricuspid valve. Mild tricuspid regurgitation. Pulmonic Valve Pulmonic valve not well visualized. Pericardium Echo free space anterior to the right ventricle likely represents a fat pad. Aorta Normal size aortic root and proximal ascending aorta. CONCLUSIONS Mildly reduced LV systolic function Moderate left atrial enlargement Previewed by: Dr. Demarcus Stallings MD (Electronically Signed) Final Date: 09 November 2021 11:22
[2021-11-09 11:38] LABS: Basophils % (A) 0 %; Eosinophils # (A) 0.2 k/uL (0-0.7); Eosinophils % (A) 3 %; HCT 38.8 % (34.0-46.0); HGB 12.8 gm/dL (11.4-16.0); Lymphocytes # (A) 1.5 k/uL (1.0-4.8); Lymphocytes % (A) 24 %; MCH 29.9 pg (25.0-35.0); MCHC 32.9 g/dL (31.0-37.0); MCV 90.7 fL (80.0-100.0); Mean Platelet Volume 7.4; Monocytes # (A) 0.3 k/uL (0-1.0); Monocytes % (A) 4 %; Neutrophils # (A) 4.3 k/uL (1.3-7.7); Neutrophils % (A) 68 %; Platelet Count 164 k/uL (150-450); RBC 4.28 m/uL (3.80-5.40); RDW 13.7 % (11.5-15.5); WBC 6.3 k/uL (3.8-10.6)
[2021-11-09 11:49] LABS: Calcium 7.8 mg/dL (8.4-10.2); Potassium 3.9 mmol/L (3.5-5.1)
[2021-11-09 12:01] LABS: Glucose,Whole Blood 134 mg/dL (70-110)
--- NOTE | 2021-11-09 15:34 | P.PN ---
Subjective Progress Note Date: 11/09/21 Principal diagnosis: Encephalopathy and change in mental status There is an 81-year-old with a history of diabetes recent gout presented with lethargy, the patient's son stated some lightheadedness and confusion over the last weeks. Emergency room patient was found to be in atrial fibrillation with an an HSS score of 7. The patient received TPA after being screened by dean small initially patient NIH score improved from 9-6/7 on the patient clinically worsened she was admitted to the medical intensive care unit. The patient overnight remains lethargic with minimal responsiveness. On the evening of 11/08 more responsive to voice unable to transfer patient. Today ore awake and alert Objective - Vital Signs Vital signs: Vital Signs Temp 98.5 F 11/09/21 10:00 Pulse 63 11/09/21 14:00 Resp 16 11/09/21 14:00 BP 140/64 11/09/21 14:00 Pulse Ox 94 L 11/09/21 14:00 FiO2 Intake & Output 11/08/21 11/09/21 11/09/21 18:59 06:59 18:59 Intake Total 1150 1200 700 Output Total 1210 320 465 Balance -60 880 235 Weight 95.8 kg Intake: IV 1050 1200 700 Sodium Chloride 0.9% 1, 1050 1200 700 000 ml @ 100 mls/hr IV . Q10H [facility] Rx#:[id number] Intake, IV Titration 100 Amount ACETAMINOPHEN IV (For NPO 100 ) 1,000 mg In Empty Bag 1 bag @ 400 mls/hr IVPB Q6HR [facility] Rx#:[id number] Output: Urine 1210 320 465 Other: Voiding Method Indwelling Catheter Indwelling Catheter - Constitutional General appearance: Present: no acute distress - Respiratory Respiratory: bilateral: CTA - Cardiovascular Rhythm: regular - Gastrointestinal General gastrointestinal: Present: normal bowel sounds - Integumentary Integumentary: Present: normal turgor - Neurologic Neurologic Comment(s): cooperative - Psychiatric Psychiatric Comment(s): oriented x 2 - Labs CBC & Chem 7: 11/09/21 11:26 11/09/21 11:26 Labs: Abnormal Lab Results - Last 24 Hours (Table) 11/08/21 11/08/21 11/08/21 Range/Units 11:52 18:09 23:26 Sodium (137-145) mmol/L Carbon Dioxide (22-30) mmol/L Glucose (74-99) mg/dL POC Glucose (mg/dL) 113 H 126 H (70-110) mg/dL Hemoglobin A1c 6.2 H (0.0-6.0) % Calcium (8.4-10.2) mg/dL 11/09/21 11/09/21 11/09/21 Range/Units 05:57 11:26 11:49 Sodium 133 L (137-145) mmol/L Carbon Dioxide 21 L (22-30) mmol/L Glucose 123 H (74-99) mg/dL POC Glucose (mg/dL) 122 H 134 H (70-110) mg/dL Hemoglobin A1c (0.0-6.0) % Calcium 7.8 L (8.4-10.2) mg/dL Assessment and Plan (1) Encephalopathy Narrative/Plan: Patient with encephalopathy clear evidence of acute findings on MRI or CTA. Dis cuss with neurologist, oral, active talk to address family's concerns. Urinalysis was reviewed there is no evidence of infection. EEG was unable to be read plan to repeat in a.m. To transfer patient outside facility however unable to transfer because patient wasn't accepted. In the patient became more responsive to verbal stimuli she was complaining of posterior neck pain. Repeat CT of the head did not show any acute abnormality. Patient unable to get a lumbar puncture because of recent CTA so acyclovir was started. Patient was more responsive today she still complains of a posterior headache. She was able to comprehend conversations and give history although she could not recall the events of yesterday. Appreciate neurology input and plan for repeat EEG or interpretation of EEG tomorrow. We'll consider acyclovir for at least another 24 hours pending further workup since etiology of decreased responsiveness still unknown. Current Visit: Yes Status: Acute Code(s): G93.40 - ENCEPHALOPATHY, UNSPECI FIED SNOMED Code(s): 86369803 (2) Atrial fibrillation, new onset Narrative/Plan: Appreciate cardiology input plan for anticoagulation when okay with Neurology. Continue to monitor Current Visit: Yes Status: Acute Code(s): I48.91 - UNSPECIFIED ATRIAL FIBRILLATION SNOMED Code(s): 33460107 (3) CVA (cerebral vascular accident) Narrative/Plan: Status post TPA administration no evidence of stroke on MRI Current Visit: Yes Status: Acute Code(s): I63.9 - CEREBRAL INFARCTION, UNSPECIFIED SNOMED Code(s): 539353080 (4) Weakness Narrative/Plan: Will order PT OT since patient is more alert continue to monitor closely Current Visit: Yes Status: Acute Code(s): R53.1 - WEAKNESS SNOMED Code(s): 72526267 Plan: Patient is more alert plan to transfer out of ICU, swallow study then restart medications
[2021-11-09 18:28] LABS: Glucose,Whole Blood 101 mg/dL (70-110)
[2021-11-09] MEDS: SODIUM CHLORIDE 0.9% 1,000 ML IV SCH ×2 (18:30→21:04)
[2021-11-09] MEDS: ATORVASTATIN 10 MG TAB PO SCH (21:03)
[2021-11-09] MEDS: OXYBUTYNIN CHLORIDE 5 MG TAB PO SCH (21:03)
[2021-11-10 00:35] LABS: Glucose,Whole Blood 100 mg/dL (70-110)
[2021-11-10] MEDS: INSULIN ASPART (NovoLOG) 100 UNIT/ML VIAL SQ SCH ×4 (01:10→17:43)
[2021-11-10 05:14] LABS: Glucose,Whole Blood 113 mg/dL (70-110)
[2021-11-10] MEDS: SODIUM CHLORIDE 0.9% 1,000 ML IV SCH (06:02)
[2021-11-10] MEDS: LEVOTHYROXINE 75 MCG TAB PO SCH (06:05)
[2021-11-10] MEDS: GLIMEPIRIDE 1 MG TAB PO SCH (07:26)
[2021-11-10] MEDS: lisinopriL 20 MG TAB PO SCH (07:27)
[2021-11-10] MEDS: ASPIRIN 81 MG PO SCH (07:27)
[2021-11-10] MEDS: hydroCHLOROthiazide 25 MG TAB PO SCH (07:27)
--- NOTE | 2021-11-10 10:53 | P.PN ---
Subjective The patient is an 81-year-old female with a past medical history of hypothyroidism, hypertension, dyslipidemia. Patient is currently admitted to the hospital with confusion and possible CVA, patient was given TPA in the emergency department. She was also found to have new onset atrial fibrillation and cardiology was consulted. Echocardiogram revealed EF 4550 %, mild mitral regurgitation, mild tricuspid regurgitation 11/10/2021 Patient seen and examined at bedside, no acute ditress. She has no complaints. No chest pain or chest pressure. No difficulty breathing. She is lying comfortably in bed. She endorses some intermittent confusion since admission but secondary to she does not remember coming to the hospital. She is currently still maintaining sinus mechanism Meds: Aspirin 81 mg daily, atorvastatin 10 mg nightly, hydrochlorothiazide 25 mg daily, lisinopril 40 mg daily Vitals: Blood pressure 166/71, heart rate 78, afebrile, oxygen saturation 94% on room air GENERAL: Well-appearing, well-nourished and in no acute distress. NECK: Supple without JVD LUNGS: Breath sounds clear to auscultation bilaterally. Respiration equal and unlabored. No wheezes, rales or rhonchi. HEART: Regular rate and rhythm without murmurs, rubs or gallops. S1 and S2 heard. EXTREMITIES: Normal range of motion, no edema. No clubbing or cyanosis. Peripheral pulses intact and strong. ASSESSMENT: Acute CVA, status post TPA administration New-onset paroxysmal atrial fibrillation, currently in sinus rhythm Hypertension Hyponatremia, likely secondary to diuretic use Dyslipidemia on statin History of diabetes, hemoglobin A1c 6.2 PLAN: Eliquis sent to pharmacy, case management consulted for coverage Start anticoagulation when cleared by neurology Continue Lisionpril Outpatient follow-up with Dr. Stallings for A. fib management We will follow the patient as needed. Please reach out with any further questions or concerns Nurse practitioner note has been reviewed by physician. Signing provider agrees with the documented findings, assessment, and plan of care. Objective - Vital Signs Vital signs: Vital Signs Temp 97.4 F L 11/10/21 08:00 Pulse 78 11/10/21 08:00 Resp 18 11/10/21 08:00 BP 166/71 11/10/21 08:00 Pulse Ox 95 11/10/21 08:00 FiO2 Intake & Output 11/09/21 11/10/21 11/10/21 18:59 06:59 18:59 Intake Total 1100 Output Total 960 300 620 Balance 140 -300 -620 Intake: IV 1100 Sodium Chloride 0.9% 1, 1100 000 ml @ 100 mls/hr IV . Q10H [facility] Rx#:[id number] Output: Urine 960 300 620 Other: Voiding Method Indwelling Catheter Indwelling Catheter Indwelling Catheter - Labs CBC & Chem 7: 11/09/21 11:26 11/09/21 11:26 Labs: Abnormal Lab Results - Last 24 Hours (Table) 11/09/21 11/09/21 11/10/21 Range/Units 11:26 11:49 05:13 Sodium 133 L (137-145) mmol/L Carbon Dioxide 21 L (22-30) mmol/L Glucose 123 H (74-99) mg/dL POC Glucose (mg/dL) 134 H 113 H (70-110) mg/dL Calcium 7.8 L (8.4-10.2) mg/dL
[2021-11-10 12:23] LABS: Glucose,Whole Blood 122 mg/dL (70-110)
--- NOTE | 2021-11-10 13:34 | P.PN ---
Subjective Progress Note Date: 11/10/21 Principal diagnosis: Post-TPA On 11/10/2021 patient seen in follow-up on medical surgical floor. She is awake alert, oriented 3, mentation seems to have significantly improved since admission. She is answering questions appropriately. She denies any acute distress, has no specific complaints. She is breathing comfortably. Denies any shortness of breath, no chest discomfort. On 2 L of oxygen her pulse ox is 95%, breathing is nonlabored, lung sounds are clear to auscultation, vital signs are stable. No fever or chills. No evidence of seizure, EEG is pending for today, neurology service is following, repeat brain CT showed on 11/08/2021 showed no acute intracranial abnormality. Patient is in sinus mechanism, cardiology is following. Echocardiogram was completed showing EF of 45-50%. She was seen by speech therapy, and dysphagia diet 3 with thin liquids was recommended. Generally patient is weak, and the recommendation was made by occupational therapy for ECF placement after discharge. Objective - Vital Signs Vital signs: Vital Signs Temp 97.4 F L 11/10/21 08:00 Pulse 78 11/10/21 08:00 Resp 18 11/10/21 08:00 BP 166/71 11/10/21 08:00 Pulse Ox 95 11/10/21 08:00 FiO2 Intake & Output 11/09/21 11/10/21 11/10/21 18:59 06:59 18:59 Intake Total 1100 Output Total 960 300 620 Balance 140 -300 -620 Intake: IV 1100 Sodium Chloride 0.9% 1, 1100 000 ml @ 100 mls/hr IV . Q10H [facility] Rx#:[id number] Output: Urine 960 300 620 Other: Voiding Method Indwelling Catheter Indwelling Catheter Indwelling Catheter - Exam GENERAL EXAM: Alert, very pleasant, 81-year-old white female, on 2 L of oxygen with pulse ox of 95% comfortable in no apparent distress. HEAD: Normocephalic/atraumatic. EYES: Normal reaction of pupils, equal size. Conjunctiva pink, sclera white. NOSE: Clear with pink turbinates. THROAT: No erythema or exudates. NECK: No masses, no JVD, no thyroid enlargement, no adenopathy. CHEST: No chest wall deformity. Symmetrical expansion. LUNGS: Equal air entry with no crackles, wheeze, rhonchi or dullness. CVS: Regular rate and rhythm, normal S1 and S2, no gallops, no murmurs, no rubs ABDOMEN: Soft, nontender. No hepatosplenomegaly, normal bowel sounds, no guarding or rigidity. EXTREMITIES: No clubbing, no edema, no cyanosis, 2+ pulses and upper and lower extremities. MUSCULOSKELETAL: Muscle strength and tone normal. SPINE: No scoliosis or deformity SKIN: No rashes CENTRAL NERVOUS SYSTEM: Alert and oriented -3. No focal deficits, tone is no rmal in all 4 extremities. PSYCHIATRIC: Alert and oriented -3. Appropriate affect. Intact judgment and insight. - Labs CBC & Chem 7: 11/09/21 11:26 11/09/21 11:26 Labs: Abnormal Lab Results - Last 24 Hours (Table) 11/10/21 11/10/21 Range/Units 05:13 12:21 POC Glucose (mg/dL) 113 H 122 H (70-110) mg/dL Assessment and Plan Plan: Assessment: Status post TPA, although CT angiography, brain CT and brain MRI have been negative, neurologically patient has improved Hyponatremia present on admission, improved New onset atrial fibrillation History of diabetes mellitus type 2 History of hypertension History of hypothyroidism History of kidney stones Plan: No acute issues overnight Neurologically patient is improving EEG is pending for today No difficulty breathing, vital signs are stable Neurology and cardiology recommendations Otherwise seems to be improving I have personally seen and examined the patient, performed the documentation and the assessment and plan as written. Number of minutes spent on the visit: 10 I have personally seen and examined the patient and reviewed the documentation. I performed a joint evaluation with the nurse practitioner in this evaluation was done more than 10 minutes. I fully agree with the documentation above and the plan of care.. The patient is clinically stable. No active issues for us in terms of pulmonary and critical care services. We'll sign off the case Time with Patient: Less than 30
--- NOTE | 2021-11-10 14:05 | P.PN ---
Subjective Progress Note Date: 11/10/21 Principal diagnosis: Altered mental status Patient was seen and examined. No acute events overnight. Patient reports fatigue. Barely able to pivot from chair to bed. Previously able to do ADLs and IADLs, lived independently, able to drive, used no aid device to ambulate. She denies any chest pain, shortness of breath or palpitations. No nausea or vomiting. No fever or chills. Objective - Vital Signs Vital signs: Vital Signs Temp 97.4 F L 11/10/21 08:00 Pulse 78 11/10/21 08:00 Resp 18 11/10/21 08:00 BP 166/71 11/10/21 08:00 Pulse Ox 95 11/10/21 08:00 FiO2 Intake & Output 11/09/21 11/10/21 11/10/21 18:59 06:59 18:59 Intake Total 1100 Output Total 960 300 620 Balance 140 -300 -620 Intake: IV 1100 Sodium Chloride 0.9% 1, 1100 000 ml @ 100 mls/hr IV . Q10H [facility] Rx#:[id number] Output: Urine 960 300 620 Other: Voiding Method Indwelling Catheter Indwelling Catheter Indwelling Catheter - Exam General: [non toxic], [no distress], [appears at stated age] Derm: [warm], [dry] Head: [atraumatic], [normocephalic], [symmetric] Eyes: [EOMI], [no lid lag], [anicteric sclera] Mouth: [no lip lesion], [mucus membranes moist] Cardiovascular: [S1S2 reg], [no murmur] Lungs: [CTA bilateral], [no rhonchi, no rales] , [no accessory muscle use] Ext: [no gross muscle atrophy], [no edema], [no contractures] Neuro: [ CN II-XI grossly intact], [no focal neuro deficits] Psych: [AO 3, answers questions appropriately but very slow to respond] - Labs CBC & Chem 7: 11/09/21 11:26 11/09/21 11:26 Labs: Abnormal Lab Results - Last 24 Hours (Table) 11/10/21 11/10/21 Range/Units 05:13 12:21 POC Glucose (mg/dL) 113 H 122 H (70-110) mg/dL Assessment and Plan Assessment: Assessment/plan Suspected CVA status post TPA administration -Case discussed with Dr. Kody Boland at [facility], accepted patient for transfer pending bed availability, for continuous EEG monitoring -Continue with strict blood pressure control as per neuro datastage architect guidelines with the Cardene infusion -Multiple CT head, CTA head and neck, MRI brain unrevealing -EEG done, poor quality, unable to be read -Continue ASA and Lipitor -Repeat EEG done 11/10 -Neuro checks Newly diagnosed A. fib -Echocardiogram shows EF 45-50% -Cardiology consult - start anticoagulation when OK with Neurology -Cardiac monitoring Hyponatremia -Improved, likely due to dehydration -Continue to monitor Chronic conditions: Hypothyroidism, hypertension, gout, type II DM -HCTZ, Lisinopril -Low dose insulin sliding scale, with accuchecks four times a day and h ypoglycemic precautions Resolved: Hypokalemia, Acute kidney injury DVT prophylaxis -Status post TPA administration -Defer to neurology regarding reinitiation of anticoagulation for A. fib The patient is admitted with an anticipated greater than than 2 midnight stay for evaluation of stroke. CODE STATUS: Full Code Discussed with: Patient Anticipated discharge place: Transfer to [facility]
--- NOTE | 2021-11-10 14:22 | EEG ---
ELECTROENCEPHALOGRAM REPORT DATE OF SERVICE: 11/10/2021 CLINICAL HISTORY: This is an 81-year-old woman with episodes of unresponsiveness at who continues to have altered mental status. The video EEG is obtained to evaluate for seizure and epileptiform activity. RELEVANT MEDICATION: The patient is not on any antiepileptic drugs. EEG TYPE: Routine 21 channel EEG performed with video using the 10/20 electrode placement system. DESCRIPTION: Wakefulness and drowsiness are obtained. The background consists of low voltage 7.5- 8.5 hertz activity. There is no physiological stage 2 sleep architecture. Intraictal and ictal is none. ACTIVATION PROCEDURE: Photic stimulation was partially done but was aborted because the patient could not tolerate it. There is no photic driving or abnormality during this study. Hyperventilation is not performed. CLINICAL INTERPRETATION: This is an abnormal routine EEG. The background slowing is suggestive of mild encephalopathy. Otherwise, there is no focal slowing, epileptiform discharge or seizure on the EEG. Clinical correlation is recommended MMNEERAJ / ERICAN: [id number] / MTDD
--- NOTE | 2021-11-10 15:27 | P.PN ---
Subjective Progress Note Date: 11/10/21 I am seeing the patinet for the first time during this admission. Please refer to Dr. Molina's notes for further details. Briefly, patient presented with mental status changes and received IV tpa in our facility. She had new onset atrial fibrillation. She had MRI Brain and was negative for stroke. She had STAT EEG but it seems patient had marked artifact according to Dr. Molina's note. It was recommended for patient to be transferred for retirement EEG since was unresponsiveness but was not accepted to different facilities. According to the nurse, today the patient is more awake and responsive but has weakness right leg > arm. Spoke with the patient's primary team and patient continues to be slow responding. Objective - Vital Signs Vital signs: Vital Signs Temp 97.4 F L 11/10/21 08:00 Pulse 78 11/10/21 08:00 Resp 18 11/10/21 08:00 BP 166/71 11/10/21 08:00 Pulse Ox 95 11/10/21 08:00 FiO2 Intake & Output 11/09/21 11/10/21 11/10/21 18:59 06:59 18:59 Intake Total 1100 Output Total 960 300 Balance 140 -300 Intake: IV 1100 Sodium Chloride 0.9% 1, 1100 000 ml @ 100 mls/hr IV . Q10H [facility] Rx#:[id number] Output: Urine 960 300 Other: Voiding Method Indwelling Catheter Indwelling Catheter - Exam GENERAL: The patient is lying in bed and is not in acute distress. NEUROLOGICAL: Limited because of her cooperation. Higher mental function: The patient is moderately drowsy but is awakeable to voice. She is oriented to self and place. She could not tell me time. She needs multiple verbal stimulation to keep her attention awake. She is following simple commands but again needed verbal stimulation. , Hard to assess language. Cranial nerves: She kept on having eye flutter. Could not assess visual field or pupillary reaction. No facial weakness. No dysarthria. Motor: The strength is hard to assess individual muscle strength. Is able to raise bilateral upper above gravity as well lowers but felt right lower is weaker compared to left lower. Normal tone and bulk. Cerebellum: Unable to assess. Sensation: Normal to touch. Plantars are mute bilaterally. - Labs CBC & Chem 7: 11/09/21 11:26 11/09/21 11:26 Labs: Abnormal Lab Results - Last 24 Hours (Table) 11/09/21 11/09/21 11/10/21 Range/Units 11:26 11:49 05:13 Sodium 133 L (137-145) mmol/L Carbon Dioxide 21 L (22-30) mmol/L Glucose 123 H (74-99) mg/dL POC Glucose (mg/dL) 134 H 113 H (70-110) mg/dL Calcium 7.8 L (8.4-10.2) mg/dL Assessment and Plan Assessment: 1. Mental status changes, presenting as stroke to the emergency department. Patient is status post TPA. Repeat head CT because of worsening mental status, revealed no acute changes. MRI of the brain reveals no signs of acute hemorrhage or infarct. Continue to have encephalopathy of unknown etiology. Seizure and/or postictal state continue to be considered. Does not appear stroke and MRI Brain negative for stroke. No fever or leukocytosis and ESR is normal. 2. Hyponatremia (preseted sodium of 130 and currently 133) 3. Atrial fibrillation, new onset 4. History of hypertension 5. History of diabetes mellitus Plan: * I will get repeat routine EEG. * MRI Brain is negative for stroke. CTA head and neck are negative. EEG on 11/09/21 was reported as technically difficult to read because of artifact * TSH 0.536, ammonia level <9, urine drug screen is not detected, coronavirus PCR is not detected. * Currently on ASA 81mg daily and Lipitor 10mg daily. * Cardiology is consulted for atrial fibrillation * Continue neuro checks. * PT, OT and CURATOR OF PHOTOGRAPHY AND PRINTS are consulted. * Per weekend coverage, it was recommended for patient to be transferred for retirement EEG since was unresponsiveness. Patient continues to be encephalopathic till now, therefore recommend to pursue with intermediate manager EEG. * Will defer the rest of medical management to the primary team. The plan is discussed with the primary attending and his nurse. UPDATE: Routine EEG: The background slowing is suggestive of mild encephalopathy. Otherwise, there is no focal slowing, epileptiform discharges, or seizure on the EEG. Per the nurse, patient refused to be transferred for retirement EEG and wanted to be discharged home. I went and re-examined the patient again at bedside and she was drowsy but awakeable to voice. Oriented to self, place. She correctly stated the year. She continues to be slow in responding and hypophonic. I will start the patient on Keppra 500mg every 12 hours as seizure prophylaxis that is possibly not being picked up on routine EEG. Since more responsive no need to retirement EEG and will continue to monitor but patient is not safe to be discharged home and that was relayed to her. If continues to be encephalopathic will get repeat MRI Brain but this time w/ and w/o. Patient has no fever or leukocytosis suggestive of infection at this time. Chas Iglesias M.D. Neuro-Hospitalist Time with Patient: Less than 30
[2021-11-10 17:23] LABS: Glucose,Whole Blood 96 mg/dL (70-110)
[2021-11-10] MEDS: OXYBUTYNIN CHLORIDE 5 MG TAB PO SCH (20:24)
[2021-11-10] MEDS: ATORVASTATIN 10 MG TAB PO SCH (20:24)
[2021-11-10] MEDS: levETIRAcetam IV 500 MG in SODIUM CHLORIDE 0.9% 100 ML IVPB SCH (20:24)
[2021-11-10 21:20] LABS: Glucose,Whole Blood 104 mg/dL (70-110)
[2021-11-11] MEDS: INSULIN ASPART (NovoLOG) 100 UNIT/ML VIAL SQ SCH ×4 (01:13→17:05)
[2021-11-11] MEDS: LEVOTHYROXINE 75 MCG TAB PO SCH (05:05)
[2021-11-11 05:10] LABS: Glucose,Whole Blood 83 mg/dL (70-110)
[2021-11-11] MEDS: ASPIRIN 81 MG PO SCH (07:51)
[2021-11-11] MEDS: lisinopriL 20 MG TAB PO SCH (07:51)
[2021-11-11] MEDS: hydroCHLOROthiazide 25 MG TAB PO SCH (07:51)
[2021-11-11] MEDS: GLIMEPIRIDE 1 MG TAB PO SCH (07:51)
[2021-11-11] MEDS: levETIRAcetam IV 500 MG in SODIUM CHLORIDE 0.9% 100 ML IVPB SCH ×2 (07:51→20:22)
--- NOTE | 2021-11-11 08:50 | P.PN ---
Subjective Progress Note Date: 11/11/21 The patient is seen at bedside and stated she is doing drastically better. She feels more refreshed and more awake and responsive. The nurse agrees that she is drastically better today compared to yesterday. Yesterday, I placed her on Keppra 500mg every 12 hours. Objective - Vital Signs Vital signs: Vital Signs Temp 97.9 F 11/11/21 07:05 Pulse 65 11/11/21 07:05 Resp 18 11/11/21 07:05 BP 164/79 11/11/21 07:05 Pulse Ox 97 11/11/21 07:05 FiO2 Intake & Output 11/10/21 11/11/21 11/11/21 18:59 06:59 18:59 Intake Total 70 Output Total 620 Balance -550 Intake: Oral 70 Output: Urine 620 Other: Voiding Method Indwelling Catheter # Voids 1 1 - Exam GENERAL: The patient is lying in bed and is not in acute distress. NEUROLOGICAL: Higher mental function: The patient is awake, alert, oriented to self, place and time. Patient is following simple commands. She is more awake, alert today and responsive. No aphasia and no neglect. Cranial nerves: The pupils are round, equal and reactive to light. Visual delaney are full to confrontation throughout. Extraocular movement is intact no nystagmus is noted. Facial sensation is normal to touch throughout. The facial strength is normal throughout. Tongue is midline and moved [id number] without any difficulty. No dysarthria is noted. Shoulder shrug is normal bilaterally. Motor: The strength is 5 over 5 throughout. Normal tone and bulk. Sensation: Sensation is normal to touch throughout. - Labs CBC & Chem 7: 11/09/21 11:26 11/09/21 11:26 Labs: Abnormal Lab Results - Last 24 Hours (Table) 11/10/21 Range/Units 12:21 POC Glucose (mg/dL) 122 H (70-110) mg/dL Assessment and Plan Assessment: 1. Encephalopathy of unknown etiology but concern for seizure (had episode of unresponsiveness and was drastically encephalopathic, had eye flutter). Presented as stroke to ED s/p IV tpa. MRI Brain is negative for stroke. EEG was negative for underlying seizure (but possible not picked up on EEG especially short in duration. Today is drastically better after start of Keppra. No fever or leukocytosis and ESR is normal. 2. Hyponatremia (preseted sodium of 130 and currently 133) 3. Atrial fibrillation, new onset 4. History of hypertension 5. History of diabetes mellitus Plan: * Routine EEG: The background slowing is suggestive of mild encephalopathy. Otherwise, there is no focal slowing, epileptiform discharges, or seizure on the EEG. * Continue Keppra 500mg every 12 hours as seizure prophylaxis. * Highly recommend ambulatory EEG/Prolonged EEG as outpatient. * MRI Brain is negative for stroke. CTA head and neck are negative. EEG on 11/09/21 was reported as technically difficult to read because of artifact * TSH 0.536, ammonia level <9, urine drug screen is not detected, coronavirus PCR is not detected. * Currently on ASA 81mg daily and Lipitor 10mg daily. * Cardiology is consulted for atrial fibrillation * Continue neuro checks. * PT, OT and JUKEBOX ROUTEMAN are consulted. * Will defer the rest of medical management to the primary team. * Recommend the patient to follow-up with neurologist as outpatient within 1-2 weeks. The plan is discussed with patient and her nurse. If patient continues to be doing well in the morning, she is clear for discharge from neurological perspective. Chas Iglesias M.D. Neuro-Hospitalist Time with Patient: Less than 30
[2021-11-11 12:01] LABS: Glucose,Whole Blood 78 mg/dL (70-110)
--- NOTE | 2021-11-11 12:19 | P.PN ---
Subjective Progress Note Date: 11/11/21 Feels okay. Up in chair, no chest pain no abdominal pain no nausea no vomiting no dizziness no shortness of breath. Remains afebrile. Objective - Vital Signs Vital signs: Vital Signs Temp 97.9 F 11/11/21 07:05 Pulse 65 11/11/21 07:05 Resp 18 11/11/21 07:05 BP 164/79 11/11/21 07:05 Pulse Ox 97 11/11/21 07:05 FiO2 Intake & Output 11/10/21 11/11/21 11/11/21 18:59 06:59 18:59 Intake Total 70 80 Output Total 620 Balance -550 80 Intake: Oral 70 80 Output: Urine 620 Other: Voiding Method Indwelling Catheter Toilet # Voids 1 1 - Exam General: [non toxic], [no distress] Derm: [warm], [dry] Head: [atraumatic], [normocephalic], [symmetric] Eyes: [EOMI], [no lid lag], [anicteric sclera] Mouth: [no lip lesion], [mucus membranes moist] Cardiovascular: [S1S2 reg], [no murmur] Lungs: [CTA bilateral], [no rhonchi, no rales] , [no accessory muscle use] Ext: [no gross muscle atrophy], [no edema], [no contractures] Neuro: [ CN II-XI grossly intact], [no focal neuro deficits] Psych: [AO 3, answers questions appropriately but slow to respond, appears to be improving] - Labs CBC & Chem 7: 11/09/21 11:26 11/09/21 11:26 Labs: Abnormal Lab Results - Last 24 Hours (Table) 11/10/21 Range/Units 12:21 POC Glucose (mg/dL) 122 H (70-110) mg/dL Assessment and Plan Plan: Suspected CVA status post TPA administration, CVA appears to be unlikely neurology evaluation next encephalopathy likely associated with seizures -Case discussed with Dr. Kody Boland at [facility], accepted patient for transfer pending bed availability, for continuous EEG monitoring -Continue with strict blood pressure control as per neuro women's studies lecturer guidelines with the Cardene infusion -Multiple CT head, CTA head and neck, MRI brain unrevealing -EEG done, poor quality, unable to be read -Continue ASA and Lipitor -Repeat EEG done 11/10 -Neuro checks Continues to be on Keppra. Newly diagnosed A. fib -Echocardiogram shows EF 45-50% -Cardiology consult - start anticoagulation when OK with Neurology -Cardiac monitoring currently on aspirin Hyponatremia -Improved, likely due to dehydration -Continue to monitor Improved from 1:30 up to 133, monitoring as patient is on HCTZ Chronic conditions: Hypothyroidism, hypertension, gout, type II DM -HCTZ, Lisinopril -Low dose insulin sliding scale, with accuchecks four times a day and hypoglycemic precautions Weakness: Continue PT OT Resolved: Hypokalemia, Acute kidney injury DVT prophylaxis -Status post TPA administration -Defer to neurology regarding reinitiation of anticoagulation for A. fib The patient is admitted with an anticipated greater than than 2 midnight stay for evaluation of stroke. CODE STATUS: Full Code Discussed with: Patient Anticipated discharge place: Possibly needing rehab
[2021-11-11 17:02] LABS: Glucose,Whole Blood 76 mg/dL (70-110)
--- NOTE | 2021-11-11 18:29 | EEG ---
ELECTROENCEPHALOGRAM REPORT DATE OF SERVICE: 11/08/2021 CLINICAL HISTORY: This is an 81-year-old woman with altered mental status. The video EEG is obtained to evaluate for seizure epileptiform activity. RELEVANT MEDICATION: The patient is not on any antiepileptic drugs. EEG TYPE: A routine 21-channel EEG is performed with video using the 10/20 electrode placement system. DESCRIPTION: Wakefulness and drowsiness are obtained. During awake state, the background consists of low to moderate voltage of 7 to 7.5 hertz activity. There is no physiological stage 2 sleep architecture. There is no focal slowing. Interictal and ictal is none. ACTIVATION PROCEDURE: Photic stimulation did not evoke a posterior driving response. There is no abnormality during the photic stimulation. Hyperventilation is not performed. CLINICAL INTERPRETATION: This is an abnormal routine EEG. The background slowing is suggestive of mild encephalopathy of unknown etiology. Otherwise there is no focal slowing, epileptiform discharge or seizure on the EEG. Clinical correlation is recommended. RADHA / RICARDO: [id number] / MTDD
[2021-11-11] MEDS: ATORVASTATIN 10 MG TAB PO SCH (20:22)
[2021-11-11] MEDS: OXYBUTYNIN CHLORIDE 5 MG TAB PO SCH (20:22)
[2021-11-12 00:25] LABS: Glucose,Whole Blood 83 mg/dL (70-110)
[2021-11-12] MEDS: INSULIN ASPART (NovoLOG) 100 UNIT/ML VIAL SQ SCH ×4 (01:12→17:24)
[2021-11-12] MEDS: LEVOTHYROXINE 75 MCG TAB PO SCH (05:36)
[2021-11-12 05:53] LABS: Glucose,Whole Blood 97 mg/dL (70-110)
[2021-11-12] MEDS: ASPIRIN 81 MG PO SCH (07:35)
[2021-11-12] MEDS: hydroCHLOROthiazide 25 MG TAB PO SCH (07:35)
[2021-11-12] MEDS: GLIMEPIRIDE 1 MG TAB PO SCH (07:35)
[2021-11-12] MEDS: lisinopriL 20 MG TAB PO SCH (07:35)
[2021-11-12] MEDS: levETIRAcetam IV 500 MG in SODIUM CHLORIDE 0.9% 100 ML IVPB SCH ×2 (07:35→19:44)
[2021-11-12 09:46] LABS: African American GFR (CKD) 80.1 (60.0-200.0); Albumin 3.1 g/dL (3.8-4.9); Albumin/Globulin Ratio 1.82 (1.60-3.17); Anion Gap 10.5 mmol/L (10.00-18.00); BUN/Creat Ratio 15.38 Ratio (12.00-20.00); Blood Urea Nitrogen 12.3 mg/dL (9.0-27.0); Calcium 7.7 mg/dL (8.7-10.3); Carbon Dioxide 22.5 mmol/L (20.0-27.5); Globulin 1.7 g/dL (1.6-3.3); Non-African American GFR(CKD) 69.1 (60.0-200.0); Potassium 3.5 mmol/L (3.5-5.5); Total Bilirubin 0.3 mg/dL (0.30-1.20); Total Protein 4.8 g/dL (6.2-8.2)
[2021-11-12 10:26] LABS: Basophils # (A) 0.02 X 10*3/uL (0.00-0.10); Basophils % (A) 0.4 %; Eosinophils # (A) 0.31 X 10*3/uL (0.04-0.35); Eosinophils % (A) 5.5 %; HCT 34.2 % (37.2-46.3); Immature Grans, Automated 0.2 %; Lymphocytes # (A) 2.03 X 10*3/uL (0.90-5.00); Lymphocytes % (A) 36.3 %; MCH 29.4 pg (27.0-32.0); MCHC 32.2 g/dL (32.0-37.0); MCV 91.4 fL (80.0-97.0); Mean Platelet Volume 10.6 fL (9.5-12.2); Monocytes # (A) 0.37 X 10*3/uL (0.20-1.00); Monocytes % (A) 6.6 %; NRBC Per 100 WBC 0 /100 WBCS (0.0-0.0); Neutrophils # (A) 2.86 X 10*3/uL (1.80-7.70); Platelet Count 165 X 10*3/uL (140-440); RBC 3.74 X 10*6/uL (4.10-5.20)
--- NOTE | 2021-11-12 11:31 | P.PN ---
Subjective Progress Note Date: 11/12/21 Up in chair, no chest pain no abdominal pain no nausea no vomiting no dizziness no shortness of breath. Remains afebrile. Feels much better today, asking when can she be discharged. Objective - Vital Signs Vital signs: Vital Signs Temp 98.4 F 11/12/21 07:55 Pulse 64 11/12/21 08:00 Resp 18 11/12/21 08:00 BP 131/71 11/12/21 07:55 Pulse Ox 96 11/12/21 07:55 FiO2 Intake & Output 11/11/21 11/12/21 11/12/21 18:59 06:59 18:59 Intake Total 316 Balance 316 Intake: Oral 316 Other: Voiding Method Toilet Toilet Toilet # Voids 1 1 - Exam General: [non toxic], [no distress] awake alert oriented 3 Derm: [warm], [dry] Head: [atraumatic], [normocephalic], [symmetric] Eyes: [EOMI], [no lid lag], [anicteric sclera] Mouth: [no lip lesion], [mucus membranes moist] Cardiovascular: [S1S2 reg], [no murmur] Lungs: [CTA bilateral], [no rhonchi, no rales] , [no accessory muscle use] Ext: [no gross muscle atrophy], [no edema], [no contractures] Neuro: [ CN II-XI grossly intact], [no focal neuro deficits] Psych: [AO 3, answers questions appropriately - Labs CBC & Chem 7: 11/12/21 03:29 11/12/21 03:29 Labs: Abnormal Lab Results - Last 24 Hours (Table) 11/12/21 11/12/21 Range/Units 03:29 03:29 RBC 3.74 L (4.10-5.20) X 10*6/uL Hgb 11.0 L (12.0-15.0) g/dL Hct 34.2 L (37.2-46.3) % Calcium 7.7 L (8.7-10.3) mg/dL Total Protein 4.8 L (6.2-8.2) g/dL Albumin 3.1 L (3.8-4.9) g/dL Assessment and Plan Plan: Suspected CVA status post TPA administration, CVA appears to be unlikely neurology evaluation next encephalopathy likely associated with seizures -Case discussed with Dr. Kody Boland at [facility], accepted patient for transfer pending bed availability, for continuous EEG monitoring -Multiple CT head, CTA head and neck, MRI brain unrevealing -EEG done, poor quality, unable to be read -Continue ASA and Lipitor -Repeat EEG done 11/10 -Neuro checks Continues to be on Keppra. Family history Newly diagnosed A. fib -Echocardiogram shows EF 45-50% -Cardiology consult - start anticoagulation when OK with Neurology -Cardiac monitoring currently on aspirin Hyponatremia -Improved, likely due to dehydration -Continue to monitor Fluctuates, sodium down to 129, we will hold HCTZ for now. Chronic conditions: Hypothyroidism, hypertension, gout, type II DM -HCTZ, Lisinopril, hold HCTZ secondary to hyponatremia -Low dose insulin sliding scale Weakness: Continue PT OT Resolved: Hypokalemia, Acute kidney injury DVT prophylaxis -Status post TPA administration -Defer to neurology regarding reinitiation of anticoagulation for A. fib CODE STATUS: Full Code Discussed with: Patient Anticipated discharge place: Pending rehab
[2021-11-12 12:04] LABS: Glucose,Whole Blood 92 mg/dL (70-110)
--- NOTE | 2021-11-12 13:37 | P.PN ---
Subjective Progress Note Date: 11/12/21 The patient continues to be doing well and denies of any new neurological issues. Per nurse no episodes of confusion. Objective - Vital Signs Vital signs: Vital Signs Temp 98.4 F 11/12/21 07:55 Pulse 64 11/12/21 08:00 Resp 18 11/12/21 08:00 BP 131/71 11/12/21 07:55 Pulse Ox 96 11/12/21 07:55 FiO2 Intake & Output 11/11/21 11/12/21 11/12/21 18:59 06:59 18:59 Intake Total 316 Balance 316 Intake: Oral 316 Other: Voiding Method Toilet Toilet Toilet # Voids 1 1 - Exam GENERAL: The patient is lying in bed and is not in acute distress. NEUROLOGICAL: Higher mental function: The patient is awake, alert, oriented to self, place and time. Patient is following simple commands. No aphasia and no neglect. Cranial nerves: The pupils are round, equal and reactive to light. Visual delaney are full to confrontation throughout. Extraocular movement is intact no nystagmus is noted. Facial sensation is normal to touch throughout. The facial strength is normal throughout. Tongue is midline and moved [id number] without any difficulty. No dysarthria is noted. Shoulder shrug is normal bilaterally. Motor: The strength is 5 over 5 throughout. Normal tone and bulk. Sensation: Sensation is normal to touch throughout. - Labs CBC & Chem 7: 11/12/21 03:29 11/12/21 03:29 Labs: Abnormal Lab Results - Last 24 Hours (Table) 11/12/21 11/12/21 Range/Units 03:29 03:29 RBC 3.74 L (4.10-5.20) X 10*6/uL Hgb 11.0 L (12.0-15.0) g/dL Hct 34.2 L (37.2-46.3) % Calcium 7.7 L (8.7-10.3) mg/dL Total Protein 4.8 L (6.2-8.2) g/dL Albumin 3.1 L (3.8-4.9) g/dL Assessment and Plan Assessment: 1. Encephalopathy of unknown etiology but concern for seizure (had episode of unresponsiveness and was drastically encephalopathic, had eye flutter). Presented as stroke to ED s/p IV tpa. MRI Brain is negative for stroke. EEG was negative for underlying seizure (but possible not picked up on EEG especially short in duration. Drastically better after start of Keppra. No fever or leukocytosis and ESR is normal. 2. Hyponatremia (preseted sodium of 130 and currently 133) 3. Atrial fibrillation, new onset 4. History of hypertension 5. History of diabetes mellitus Plan: * Routine EEG: The background slowing is suggestive of mild encephalopathy. Otherwise, there is no focal slowing, epileptiform discharges, or seizure on the EEG. * Continue Keppra 500mg every 12 hours as seizure prophylaxis, especially since patient had episode of unresponsiveness and confusion and next day after Keppra improved. * Highly recommend ambulatory EEG/Prolonged EEG as outpatient and if negative for seizures as outpatient consider tapering off Keppra until stopped (but will defer to her neurologist as outpatient). * MRI Brain is negative for stroke. CTA head and neck are negative. EEG on 10/24 11/14 was reported as technically difficult to read because of artifact * TSH 0.536, ammonia level <9, urine drug screen is not detected, coronavirus PCR is not detected. * Currently on ASA 81mg daily and Lipitor 10mg daily. * Cardiology is consulted for atrial fibrillation * Continue neuro checks. * PT, OT and AIRLINE PILOT/FIRST OFFICER are consulted. * Will defer the rest of medical management to the primary team. * Recommend the patient to follow-up with neurologist as outpatient within 1-2 weeks. The plan is discussed with patient and her nurse. She is clear for discharge from neurological perspective. Chas Iglesias M.D. Neuro-Hospitalist Time with Patient: Less than 30
[2021-11-12 14:25] VITALS: RESP 16
[2021-11-12 17:14] LABS: Glucose,Whole Blood 72 mg/dL (70-110)
[2021-11-12] MEDS: OXYBUTYNIN CHLORIDE 5 MG TAB PO SCH (19:45)
[2021-11-12] MEDS: ATORVASTATIN 10 MG TAB PO SCH (19:45)
[2021-11-13 00:50] LABS: Glucose,Whole Blood 79 mg/dL (70-110)
[2021-11-13] MEDS: INSULIN ASPART (NovoLOG) 100 UNIT/ML VIAL SQ SCH ×3 (01:26→13:49)
[2021-11-13] MEDS: LEVOTHYROXINE 75 MCG TAB PO SCH (05:53)
[2021-11-13 06:33] LABS: Glucose,Whole Blood 105 mg/dL (70-110)
[2021-11-13] MEDS: lisinopriL 20 MG TAB PO SCH (08:17)
[2021-11-13] MEDS: ASPIRIN 81 MG PO SCH (08:17)
[2021-11-13] MEDS: levETIRAcetam IV 500 MG in SODIUM CHLORIDE 0.9% 100 ML IVPB SCH (08:18)
[2021-11-13] MEDS: GLIMEPIRIDE 1 MG TAB PO SCH (08:18)
[2021-11-13] MEDS ORDERED: amLODIPine 5 MG TAB PO SCH (09:00)
[2021-11-13 09:38] VITALS: BP 137/67; PULSE 67; TEMP 97.8
--- NOTE | 2021-11-13 12:03 | P.PN ---
Subjective Progress Note Date: 11/13/21 The patient is sitting in a recliner chair surrounded by her son and [id number] and feels is doing well. No further episodes of confusion. Objective - Vital Signs Vital signs: Vital Signs Temp 97.8 F 11/13/21 08:00 Pulse 67 11/13/21 08:00 Resp 16 11/13/21 08:00 BP 137/67 11/13/21 08:00 Pulse Ox 95 11/13/21 08:00 FiO2 Intake & Output 11/12/21 11/13/21 11/13/21 18:59 06:59 18:59 Intake Total 50 118 Balance 50 118 Intake: Oral 50 118 Other: Voiding Method Toilet Toilet Toilet # Voids 3 1 - Exam GENERAL: The patient is lying in a recliner chair and is not in acute distress. NEUROLOGICAL: Higher mental function: The patient is awake, alert, oriented to self, place and time. Patient is following simple commands. No aphasia and no neglect. Cranial nerves: The pupils are round, equal and reactive to light. Visual delaney are full to confrontation throughout. Extraocular movement is intact no nystagmus is noted. Facial sensation is normal to touch throughout. The facial strength is normal throughout. Tongue is midline and moved [id number] without any difficulty. No dysarthria is noted. Shoulder shrug is normal bilaterally. Motor: The strength is 5 over 5 throughout. Normal tone and bulk. Sensation: Sensation is normal to touch throughout. - Labs CBC & Chem 7: 11/12/21 03:29 11/12/21 03:29 Assessment and Plan Assessment: 1. Encephalopathy of unknown etiology but concern for possible seizure (had episode of unresponsiveness and was drastically encephalopathic, had eye flutter). Presented as stroke to ED s/p IV tpa. MRI Brain is negative for stroke. EEG was negative for underlying seizure (but possible not picked up on EEG especially short in duration. Drastically better after start of Keppra. No fever or leukocytosis and ESR is normal. 2. Hyponatremia (preseted sodium of 130 and currently 133) 3. Atrial fibrillation, new onset 4. History of hypertension 5. History of diabetes mellitus Plan: * Routine EEG: The background slowing is suggestive of mild encephalopathy. Otherwise, there is no focal slowing, epileptiform discharges, or seizure on the EEG. * Continue Keppra 500mg every 12 hours as seizure prophylaxis, especially since patient had episode of unresponsiveness and confusion and next day after Keppra improved. * Highly recommend ambulatory EEG/Prolonged EEG as outpatient and if negative for seizures as outpatient consider tapering off Keppra until stopped (but will defer to her neurologist as outpatient). * MRI Brain is negative for stroke. CTA head and neck are negative. EEG on 11/09/21 was reported as technically difficult to read because of artifact * TSH 0.536, ammonia level <9, urine drug screen is not detected, coronavirus PCR is not detected. * Currently on ASA 81mg daily and Lipitor 10mg daily. * Cardiology is consulted for atrial fibrillation * Continue neuro checks. * PT, OT and SPRINKLER IRRIGATION EQUIPMENT MECHANIC are consulted. * Will defer the rest of medical management to the primary team. * Recommend the patient to follow-up with neurologist as outpatient within 1-2 weeks. The plan is discussed with patient, her family members (son and [id number]) and her nurse. She is clear for discharge from neurological perspective. Will sign off. Please reconsulf if needed. Chas Iglesias M.D. Neuro-Hospitalist Time with Patient: Less than 30
[2021-11-13 12:23] LABS: Glucose,Whole Blood 99 mg/dL (70-110)
--- NOTE | 2021-11-13 13:04 | P.DS ---
Providers Date of admission: 11/07/21 22:50 Expected date of discharge: 11/13/21 Attending physician: Jean-Pierre Rasmussen MD Consults: 11/07/21 22:51 Consult Physician Routine Consulting Provider: [facility] Consult Reason/Comments: New onset atrial fibrillation Do you want consulting provider notified?: Yes, Notify in am Consult Physician Routine Consulting Provider: Russ Iglesias Consult Reason/Comments: CVA s/p TPA Do you want consulting provider notified?: Already Contacted Consult Physician Routine Consulting Provider: Jolly Elliott Consult Reason/Comments: CVA s/p TPA Do you want consulting provider notified?: Yes, Notify in am Primary care physician: Julia Morales MD Hospital Course: Patient is an 81-year-old female with a PMH of gout, hypertension, DM, hypothyroidism who was brought into the emergency room via EMS for concerns of stroke. History is provided by the patient's son at the bedside in the ED provider. The son reports that over the past 2 weeks, the patient had been experiencing intermittent lightheadedness and confusion, for which her PCP had ordered a CT brain which was unremarkable. The son was at the patient's house and left the house at around 7:30 PM and upon returning at around 810, found the patient to be confused, lethargic, and with a facial droop. Upon arrival to the emergency room, the patient was noted to have a left-sided facial droop, for which a code stroke was activated. NIHSS was 7. Of note, the patient was noted to be in A. fib in the emergency room with no prior history documented and pat ient not being on any anticoagulants. The son reports the patient was previously noted to have a single episode of A. fib several years agotime at which point anticoagulants were not initiated. Furthermore, the patient was evaluated at an urgent care center earlier today for flareup of gout for which she was given indomethacin. The case was discussed by ED provided with neuro chemist instrumentation international bank manager and the patient was deemed to be a TPA candidate. CT brain and angiogram were unremarkable and the patient was subsequently given TPA at 2114. The patient's NIH stroke scale was noted to have improved from 9 to 6/7 with tPA. At time of my evaluation shortly after, the patient's mental status was noted to have worsened. She was noted to have worsening aphasia and lethargic. Repeat CT brain was ordered which was unremarkable. No meaningful history could be obtained from the patient. The patient was admitted to the medical ICU. Multiple brain CTs were done which was negative for acute changes. CT head and neck showed minimal plaque in the right carotid artery bifurcation. MRI brain was done which showed age-related atrophic and chronic small vessel ischemic changes. Echocardiogram was done which showed EF of 45-50%. Cardiology was consulted with regard to new onset A. fib recommended our request. Neurology was consulted and recommended EEG. EEG showed background slowing suggestive of mild encephalopathy with no focal slowing, epileptiform discharges or seizures. Neurology recommended Keppra 500 mg by mouth twice a day. TSH was low but free T4 within normal limits. Ammonia level was negative. UDS negative. Neurology initially recommended transfer for higher level of care. Case was discussed with Samy Humphreys and patient was accepted for transfer. Patient however refused transfer. Her altered mentation considerably improved during her hospitalization. PT and OT evaluate the patient and recommended SNIF. Patient was subsequently discharged on 11/13/2021. She was advised to follow-up with her PCP, cardiology and neurology. Advised against driving until cleared by neurology. General: [non toxic], [no distress], [appears at stated age] Derm: [warm], [dry] Head: [atraumatic], [normocephalic], [symmetric] Eyes: [EOMI], [no lid lag], [anicteric sclera] Mouth: [no lip lesion], [mucus membranes moist] Cardiovascular: [S1S2 reg], [no murmur] Lungs: [CTA bilateral], [no rhonchi, no rales] , [no accessory muscle use] Ext: [no gross muscle atrophy], [no edema], [no contractures] Neuro: [no focal neuro deficits] Psych: [AO 3] Discharge diagnosis: Suspected CVA status post TPA administration Atrial fibrillation Chronic conditions: Hypothyroidism, hypertension, gout, type 2 diabetes mellitus Resolved: Hypokalemia, acute kidney injury, hyponatremia This complex discharge took about 45 minutes to complete. Pertinent Studies: CT brain, CTA head and neck, MRI brain, echocardiogram, EEG Patient Condition at Discharge: Stable Plan - Discharge Summary Discharge Rx Participant: No New Discharge Prescriptions: New Apixaban [Eliquis] 5 mg PO BID #60 tab levETIRAcetam [Keppra] 500 mg PO Q12HR #60 tab amLODIPine [Norvasc] 5 mg PO DAILY tab Continue Aspirin 81 mg PO DAILY lisinopriL 40 mg PO DAILY Levothyroxine Sodium [Synthroid] 75 mcg PO DAILY Fish Oil/Dha/Epa [Fish Oil 1,200 mg Fish Oil] 1 cap PO DAILY Cholecalciferol [Vitamin D3 (25 Mcg = 1000 Iu)] 25 mcg PO Q48H Calcium Carbonate [Calcium] 600 mg PO BID Glimepiride [Amaryl] 1 mg PO W/BRKFST Rosuvastatin Calcium [Crestor] 5 mg PO HS Oxybutynin Chloride 5 mg PO HS Discontinued hydroCHLOROthiazide [Hydrodiuril] 25 mg PO DAILY Doxycycline [Vibramycin] 100 mg PO BID Indomethacin [Indocin] 50 mg PO TID PRN PRN Reason: Pain Discharge Medication List Aspirin 81 mg PO DAILY 01/12/14 [History] Levothyroxine Sodium [Synthroid] 75 mcg PO DAILY 01/12/14 [History] lisinopriL 40 mg PO DAILY 01/12/14 [History] Calcium Carbonate [Calcium] 600 mg PO BID 11/07/21 [History] Cholecalciferol [Vitamin D3 (25 Mcg = 1000 Iu)] 25 mcg PO Q48H 11/07/21 [History] Fish Oil/Dha/Epa [Fish Oil 1,200 mg Fish Oil] 1 cap PO DAILY 11/07/21 [History] Glimepiride [Amaryl] 1 mg PO W/BRKFST 11/07/21 [History] Oxybutynin Chloride 5 mg PO HS 11/07/21 [History] Rosuvastatin Calcium [Crestor] 5 mg PO HS 11/07/21 [History] Apixaban [Eliquis] 5 mg PO BID #60 tab 11/10/21 [Rx] amLODIPine [Norvasc] 5 mg PO DAILY tab 11/13/21 [Rx] levETIRAcetam [Keppra] 500 mg PO Q12HR #60 tab 11/13/21 [Rx] Follow up Appointment(s)/Referral(s): Demarcus Stallings MD [STAFF PHYSICIAN] - 3 Weeks Julia Morales MD [Primary Care Provider] - 1-2 days [place] MD [REFERRING] - 1 Week Patient Instructions/Handouts: Apixaban (By mouth), A-fib (Atrial Fibrillation) (GEN) Activity/Diet/Wound Care/Special Instructions: Diet: Diabetic, Cardiac Follow-up with PCP within 1-2 days of discharge. Follow-up with cardiology within 3 weeks of discharge. Follow-up with neurology within 1 week of discharge. Please do not drive until cleared by neurology. Discharge Disposition: TRANSFER TO SNF/ECF
[2021-11-13] MEDS ORDERED: levETIRAcetam 500 MG TAB PO SCH (21:00)
== END 2021-11-13 15:00 | DRG 62 ==
LOC: EC 20:37 → 2SICU 22:50 → 6NMEDSUR 11-09 19:17
PROVIDERS: ADMIT Internal Medicine; ATTEND Internal Medicine
DX: I63.9 Cerebral infarction, unspecified (principal); E87.1 Hypo-osmolality and hyponatremia; G93.40 Encephalopathy, unspecified; J98.11 Atelectasis; N17.9 Acute kidney failure, unspecified; E03.9 Hypothyroidism, unspecified; E11.65 Type 2 diabetes mellitus with hyperglycemia; E78.5 Hyperlipidemia, unspecified; E86.0 Dehydration; R29.810 Facial weakness; R47.01 Aphasia; T50.2X5A Adverse effect of carbonic-anhydrase inhibitors, benzothiadiazides and other diuretics, initial encounter; R29.716 NIHSS score 16; R29.707 NIHSS score 7; K44.9 Diaphragmatic hernia without obstruction or gangrene; I10 Essential (primary) hypertension; I48.0 Paroxysmal atrial fibrillation; Z20.822 Contact with and (suspected) exposure to COVID-19; M10.9 Gout, unspecified; Z79.82 Long term (current) use of aspirin; Z79.84 Long term (current) use of oral hypoglycemic drugs; Z79.890 Hormone replacement therapy; Z79.899 Other long term (current) drug therapy; Z82.0 Family history of epilepsy and other diseases of the nervous system; Z82.49 Family history of ischemic heart disease and other diseases of the circulatory system; Z82.5 Family history of asthma and other chronic lower respiratory diseases; Z83.3 Family history of diabetes mellitus; Z85.828 Personal history of other malignant neoplasm of skin; Z87.442 Personal history of urinary calculi
CPT/HCPCS: 36415; 37195; 70450; 70496; 70498; 70551; 71045; 80048; 80053; 80061; 80306; 81003; 82140; 83036; 83605; 84443; 84484; 85025; 85610; 85652; 85730; 86140; 87635; 93005; 93306; 95816; 96374; 96375; 99291

== ENCOUNTER → 2021-12-13 | Outpatient (CLI) | payer MEDICARE ==
[2021-12-13 11:52] LABS: HCT 39.7 % (37.2-46.3); MCH 29.5 pg (27.0-32.0); MCHC 32.7 g/dL (32.0-37.0); Mean Platelet Volume 10.6 fL (9.5-12.2); NRBC Per 100 WBC 0 /100 WBCS (0.0-0.0); Platelet Count 163 X 10*3/uL (140-440); RBC 4.41 X 10*6/uL (4.10-5.20); RDW 13.8 % (11.5-14.5)
[2021-12-13 12:36] LABS: ALT 19 U/L (8-44); AST 22 U/L (13-35); African American GFR (CKD) 61.2 (60.0-200.0); Albumin 3.9 g/dL (3.8-4.9); Albumin/Globulin Ratio 1.95 (1.60-3.17); Alkaline Phosphatase 51 U/L (41-126); Blood Urea Nitrogen 10.3 mg/dL (9.0-27.0); Carbon Dioxide 25.7 mmol/L (20.0-27.5); Chloride 99 mmol/L (96-109); Chol/HDL Ratio 1.93 Ratio; Glucose 98 mg/dL (70-110); LDL Cholesterol,Calculated 16.7 mg/dL (0.0-131.0); Non-African American GFR(CKD) 52.8 (60.0-200.0); Potassium 4.2 mmol/L (3.5-5.5); Sodium 136 mmol/L (135-145); Total Protein 5.9 g/dL (6.2-8.2)
== END | disposition home or self-care (01) ==
LOC: LABWHC1 08:23
PROVIDERS: ATTEND Internal Medicine
DX: E11.69 Type 2 diabetes mellitus with other specified complication (principal); E03.9 Hypothyroidism, unspecified; I48.91 Unspecified atrial fibrillation
CPT/HCPCS: 36415; 80053; 80061; 84443; 84484; 85027

== ENCOUNTER 2021-12-16 01:10 | Observation (INO) | payer MEDICARE ==
[2021-12-16] MEDS ORDERED: SODIUM CHLORIDE 0.9% 1,000 ML IV STA (01:23)
[2021-12-16] MEDS ORDERED: PANTOPRAZOLE 40 MG/10 ML VIAL IVP STA (01:23)
[2021-12-16] MEDS ORDERED: ONDANSETRON 4 MG/2 ML VIAL IVP STA (01:23)
--- NOTE | 2021-12-16 01:24 | ED ---
GI Bleed HPI - General Chief complaint: GI Bleed Stated complaint: GI bleed, on thinners Time Seen by Provider: 12/16/21 01:21 Source: patient, family, RN notes reviewed, old records reviewed Mode of arrival: wheelchair Limitations: no limitations - History of Present Illness Initial comments: This is an 81-year-old female to the ER for evaluation. Patient presents today for evaluation regards to GI bleed. Patient does have history of GI bleed. Pat ient is on blood thinners. Patient has no travel history no sick contacts. No abdominal pain. No vomiting of blood. MD complaint: blood on toilet paper, blood streaked stool -: hour(s) Radiation: none Severity scale (1-10): 5 Quality: painless Consistency: constant Improves with: none Worsens with: none Context: history of GI bleed, blood thinners Associated Symptoms: denies other symptoms Treatments Prior to Arrival: none - Related Data Home Medications Medication Instructions Recorded Confirmed Aspirin 81 mg PO DAILY 01/12/14 11/07/21 Levothyroxine Sodium [Synthroid] 75 mcg PO DAILY 01/12/14 11/07/21 lisinopriL 40 mg PO DAILY 01/12/14 11/07/21 Calcium Carbonate [Calcium] 600 mg PO BID 11/07/21 11/07/21 Cholecalciferol [Vitamin D3 (25 25 mcg PO Q48H 11/07/21 11/07/21 Mcg = 1000 Iu)] Fish Oil/Dha/Epa [Fish Oil 1,200 1 cap PO DAILY 11/07/21 11/07/21 mg Fish Oil] Glimepiride [Amaryl] 1 mg PO W/BRKFST 11/07/21 11/07/21 Oxybutynin Chloride 5 mg PO HS 11/07/21 11/07/21 Rosuvastatin Calcium [Crestor] 5 mg PO HS 11/07/21 11/07/21 Previous Rx's Medication Instructions Recorded Apixaban [Eliquis] 5 mg PO BID #60 tab 11/10/21 amLODIPine [Norvasc] 5 mg PO DAILY tab 11/13/21 levETIRAcetam [Keppra] 500 mg PO Q12HR #60 tab 11/13/21 Allergies Allergy/AdvReac Type Severity Reaction Status Date / Time cephalexin [From Keflex] Allergy Nausea & Verified 12/16/21 01:12 Vomiting fenofibrate nanocrystallized Allergy irregular Verified 12/16/21 01:12 [From Tricor] heart rate fenofibrate,micronized Allergy irregular Verified 12/16/21 01:12 [From Tricor] heart rate moxifloxacin [From Vigamox] Allergy Nausea & Verified 12/16/21 01:12 Vomiting AMMONIUM LACTATE Allergy Rash/Hives Uncoded 12/16/21 01:12 adhesive tape AdvReac Rash/Hives Uncoded 12/16/21 01:12 Review of Systems ROS Statement: Those systems with pertinent positive or pertinent negative responses have been documented in the HPI. ROS Other: All systems not noted in ROS Statement are negative. Past Medical History Past Medical History: Cancer, Diabetes Mellitus, Hypertension Additional Past Medical History / Comment(s): hiatal hernia, enlarged kidney, hx kidney stone, postmenopause vaginal bleeding, hx skin cancer, IBS History of Any Multi-Drug Resistant Organisms: None Reported Past Surgical History: Appendectomy, Cholecystectomy Additional Past Surgical History / Comment(s): cataracts Past Anesthesia/Blood Transfusion Reactions: Motion Sickness Past Psychological History: No Psychological Hx Reported Smoking Status: Never smoker Past Alcohol Use History: None Reported Past Drug Use History: None Reported - Past Family History Father Family Medical History: Myocardial Infarction ([place]) Mother Family Medical History: COPD Additional Family Medical History / Comment(s): Alzheimer's General Exam Limitations: no limitations General appearance: alert, in no apparent distress Head exam: Present: atraumatic, normocephalic, normal inspection Eye exam: Present: normal appearance, PERRL, EOMI. Absent: scleral icterus, conjunctival injection, periorbital swelling ENT exam: Present: normal exam, mucous membranes moist Neck exam: Present: normal inspection. Absent: tenderness, meningismus, lymphadenopathy Respiratory exam: Present: normal lung sounds bilaterally. Absent: respiratory distress, wheezes, rales, rhonchi, stridor Cardiovascular Exam: Present: normal rhythm, tachycardia, normal heart sounds. Absent: systolic murmur, diastolic murmur, rubs, gallop, clicks GI/Abdominal exam: Present: soft, normal bowel sounds. Absent: distended, tenderness, guarding, rebound, rigid Extremities exam: Present: normal inspection, full ROM, normal capillary refill. Absent: tenderness, pedal edema, joint swelling, calf tenderness Back exam: Present: normal inspection Neurological exam: Present: alert, oriented X3, CN II-XII intact Psychiatric exam: Present: normal affect, normal mood Skin exam: Present: warm, dry, intact, normal color. Absent: rash Course Vital Signs 12/16/21 01:12 Temperature 97.7 F Pulse Rate 107 H Respiratory 16 Rate Blood Pressure 119/90 O2 Sat by Pulse 98 Oximetry - Reevaluation(s) Reevaluation #1: 12/16/21 01:50 Medical record is reviewed Reevaluation #2: 12/16/21 05:24 Patient has no significant improvement here in the ER but also no significant bleeding Reevaluation #3: 12/16/21 05:24 Patient family informed of results - Consultations Consultation #1: Spoke with sound regarding admission they are agreeable Medical Decision Making - Medical Decision Making 81 female DF for evaluation patient presents today for evaluation of GI bleed, patient is on A[place] and will be admitted for observation and GI consult - Lab Data Result diagrams: 12/16/21 01:58 12/16/21 01:58 Lab Results 12/16/21 12/16/21 12/16/21 Range/Units 01:58 01:58 01:58 WBC 8.9 (3.8-10.6) k/uL RBC 4.33 (3.80-5.40) m/uL Hgb 12.9 (11.4-16.0) gm/dL Hct 39.3 (34.0-46.0) % MCV 90.8 (80.0-100.0) fL MCH 29.7 (25.0-35.0) pg MCHC 32.7 (31.0-37.0) g/dL RDW 13.8 (11.5-15.5) % Plt Count 173 (150-450) k/uL MPV 9.1 Neutrophils % 81 % Lymphocytes % 12 % Monocytes % 5 % Eosinophils % 1 % Basophils % 0 % Neutrophils # 7.2 (1.3-7.7) k/uL Lymphocytes # 1.0 (1.0-4.8) k/uL Monocytes # 0.5 (0-1.0) k/uL Eosinophils # 0.1 (0-0.7) k/uL Basophils # 0.0 (0-0.2) k/uL PT 11.4 (9.0-12.0) sec INR 1.1 (<1.2) APTT 22.5 (22.0-30.0) sec Sodium 132 L (137-145) mmol/L Potassium 5.1 (3.5-5.1) mmol/L Chloride 100 (98-107) mmol/L Carbon Dioxide 21 L (22-30) mmol/L Anion Gap 11 mmol/L BUN 16 (7-17) mg/dL Creatinine 0.98 (0.52-1.04) mg/dL Est GFR (CKD-EPI)AfAm 63 (>60 ml/min/1.73 sqM) Est GFR (CKD-EPI)NonAf 54 (>60 ml/min/1.73 sqM) Glucose 131 H (74-99) mg/dL Plasma Lactic Acid [place] (0.7-2.0) mmol/L Calcium 8.6 (8.4-10.2) mg/dL Magnesium 1.3 L (1.6-2.3) mg/dL Total Bilirubin 1.5 H (0.2-1.3) mg/dL AST 42 H (14-36) U/L ALT 16 (4-34) U/L Alkaline Phosphatase 38 (38-126) U/L Troponin I (0.000-0.034) ng/mL Total Protein 6.5 (6.3-8.2) g/dL Albumin 3.7 (3.5-5.0) g/dL Blood Type Blood Type Recheck Bld Type Recheck Status Antibody Screen Spec Expiration Date 12/16/21 12/16/21 12/16/21 Range/Units 01:58 01:58 01:58 WBC (3.8-10.6) k/uL RBC (3.80-5.40) m/uL Hgb (11.4-16.0) gm/dL Hct (34.0-46.0) % MCV (80.0-100.0) fL MCH (25.0-35.0) pg MCHC (31.0-37.0) g/dL RDW (11.5-15.5) % Plt Count (150-450) k/uL MPV Neutrophils % % Lymphocytes % % Monocytes % % Eosinophils % % Basophils % % Neutrophils # (1.3-7.7) k/uL Lymphocytes # (1.0-4.8) k/uL Monocytes # (0-1.0) k/uL Eosinophils # (0-0.7) k/uL Basophils # (0-0.2) k/uL PT (9.0-12.0) sec INR (<1.2) APTT (22.0-30.0) sec Sodium (137-145) mmol/L Potassium (3.5-5.1) mmol/L Chloride (98-107) mmol/L Carbon Dioxide (22-30) mmol/L Anion Gap mmol/L BUN (7-17) mg/dL Creatinine (0.52-1.04) mg/dL Est GFR (CKD-EPI)AfAm (>60 ml/min/1.73 sqM) Est GFR (CKD-EPI)NonAf (>60 ml/min/1.73 sqM) Glucose (74-99) mg/dL Plasma Lactic Acid Ceasar 1.4 (0.7-2.0) mmol/L Calcium (8.4-10.2) mg/dL Magnesium (1.6-2.3) mg/dL Total Bilirubin (0.2-1.3) mg/dL AST (14-36) U/L ALT (4-34) U/L Alkaline Phosphatase (38-126) U/L Troponin I 0.013 (0.000-0.034) ng/mL Total Protein (6.3-8.2) g/dL Albumin (3.5-5.0) g/dL Blood Type A Positive Blood Type Recheck No Previous Record Bld Type Recheck Status CABO Indicated Antibody Screen NEGATIVE Spec Expiration Date 12/19/20212357 Disposition Clinical Impression: Weakness, Gastrointestinal hemorrhage, Coagulopathy Disposition: ADMITTED IP TO THIS HOSP Condition: Fair Is patient prescribed a controlled substance at d/c from ED?: No Time of Disposition: 03:30
[2021-12-16 02:14] LABS: Basophils % (A) 0 %; Eosinophils # (A) 0.1 k/uL (0-0.7); Eosinophils % (A) 1 %; HCT 39.3 % (34.0-46.0); HGB 12.9 gm/dL (11.4-16.0); Lymphocytes % (A) 12 %; MCH 29.7 pg (25.0-35.0); MCHC 32.7 g/dL (31.0-37.0); MCV 90.8 fL (80.0-100.0); Mean Platelet Volume 9.1; Monocytes # (A) 0.5 k/uL (0-1.0); Monocytes % (A) 5 %; Neutrophils # (A) 7.2 k/uL (1.3-7.7); Neutrophils % (A) 81 %; Platelet Count 173 k/uL (150-450); RBC 4.33 m/uL (3.80-5.40); RDW 13.8 % (11.5-15.5); WBC 8.9 k/uL (3.8-10.6)
[2021-12-16 02:21] LABS: INR 1.1 (<1.2); Partial Thromboplastin Time 22.5 sec (22.0-30.0); Prothrombin Time 11.4 sec (9.0-12.0)
[2021-12-16 02:23] LABS: Albumin 3.7 g/dL (3.5-5.0); Calcium 8.6 mg/dL (8.4-10.2); Magnesium 1.3 mg/dL (1.6-2.3); Total Bilirubin 1.5 mg/dL (0.2-1.3); Total Protein 6.5 g/dL (6.3-8.2)
[2021-12-16 02:30] LABS: Potassium 5.1 mmol/L (3.5-5.1)
[2021-12-16] MEDS ORDERED: NALOXONE 0.4 MG/ML 1 ML VIAL IV PRN (03:30)
[2021-12-16] MEDS ORDERED: ONDANSETRON 4 MG/2 ML VIAL IVP PRN (03:30)
[2021-12-16] MEDS ORDERED: MORPHINE SULFATE 4 MG/ML SYRINGE IV PRN (03:30)
[2021-12-16] MEDS ORDERED: MAGNESIUM SULFATE-D5W PMX 1 GM in DEXTROSE/WATER 1 100ML.BAG IVPB ONE (03:35)
[2021-12-16] MEDS ORDERED: IOPAMIDOL CONTRAST (ORAL USE) VIAL PO PRN (08:34)
--- NOTE | 2021-12-16 09:02 | P.HPIM ---
History of Present Illness H&P Date: 12/16/21 Chief Complaint: Bright red blood per rectum Patient is an 81 yo femal with DM, HTN, IBS, had possible CVA vs seizure November 07, 2021, A fib, and hital hernia that presented to the ED with complaints of birght red blood per rectum. In the ED she underwent an extensive evaluation. On arrival she was slightly tachycardiac at 107. Labaratory analysis was remarkable for sodium 132, mg 1.3, total bili 1.5, and ast 42. In the emergency department she was started on magnesium, protonix, and IV fluids. She was admitted for further monitoring. Patient seen and examined at bedside. She reports rectal bleeding that started at 1230 this morning. Has constipation and feeling of incomplete emptying yesterday. Had 8-9 bowel movements of diarrhea and then on the last bowel movement had blood and then proceeded to the ED. Was having some belly pain last night. [place] nauseated. No fevers. It had been 3 days since her bowel movement, and the one before that was 1 week prior. Did not eat or drinking anything unusual. Did eat out twice over the weekend. Has lost 14-15 pounds since due to low appetite. She is on eliquis for A fib after concerns of CVA vs seizure in October 2021. Last colonoscopy when she was in her 70s. Pertinent positives and negatives as discussed in HPI, a complete review of systems was performed and all other systems are negative. Vital signs reviewed General: nontoxic, no distress, appears at stated age Derm: warm, dry Head: atraumatic, normocephalic, symmetric Eyes: EOMI, no lid lag, anicteric sclera, pupils equal round reactive to light ENT: Nose and ears atraumatic, no thrush, no pharyngeal erythema Neck: No thyromegaly, no cervical lymphadenopathy, trachea midline, supple Mouth: no lip lesion, mucus membranes moist Cardiovascular: S1S2 reg, no murmur, positive posterior tibial pulse bilateral, no edema, capillary refill less than 2 seconds Lungs: clear to auscultation bilateral, no rhonchi, no rales, no wheeze, no accessory muscle use Abdominal: soft, + tender to palpation right lower quadrant, left lower quadrant, and left upper quadrant, no guarding, no appreciable organomegaly, normal bowel sounds Ext: no gross muscle atrophy, muscle strength muscle strength 4 out of 5 in all 4 extremities, no contractures Neuro: CN II-XII grossly intact, light touch intact all 4 extremities, finger to nose poor on the right, + tremors Psych: Alert, oriented, appropriate affect Assessment/Plan: Diarrhea GI bleeding - Consult GI - Await repeat HgB - Protonix - hold eliquis and ASA - Await CT scan- concern for fecal impaction vs colitis. Hyponatremia - IVF - await repeat labs - likely secondary to dehydration - hold aldactone Hypomagnesemia - replace and recheck DM on oral medications - hold amaryl - SSI - Follow BS A fib - hold eliquis - not on rate controlling medications The patient is admitted with an anticipated greater than 2 midnight stay for evaluation of GI bleeding Surrogate decision-maker: Daughter in law and Son CODE STATUS: Full, no prolonged mechanical ventilation DVT prophylaxis: SCDs Discussed with: Patient, nursing, Anticipated discharge date: in 2-[address]: home A total of [65] minutes was spent on the care of this complex patient more than 50% of the time was spent in counseling and care coordination. 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, placed on keppra October/2021 possible seizures pt going to address History of Any Multi-Drug Resistant Organisms: None Reported Past Surgical History: Appendectomy, Cholecystectomy Additional Past Surgical History / Comment(s): cataracts, partial thyroidectomy Past Anesthesia/Blood Transfusion Reactions: Motion Sickness Past Psychological History: No Psychological Hx Reported Smoking Status: Never smoker Past Alcohol Use History: None Reported Past Drug Use History: None Reported Additional History: walker at home - Past Family History Father Family Medical History: Myocardial Infarction ([place]) Mother Family Medical History: COPD Additional Family Medical History / Comment(s): Alzheimer's Medications and Allergies Home Medications Medication Instructions Recorded Confirmed Type Aspirin 81 mg PO W/LUNCH 01/12/14 12/16/21 History Levothyroxine Sodium [Synthroid] 75 mcg PO W/BRKFST 01/12/14 12/16/21 History lisinopriL 40 mg PO W/BRKFST 01/12/14 12/16/21 History Calcium Carbonate [Calcium] 600 mg PO AC-BID@0900,1200 11/07/21 12/16/21 History Cholecalciferol [Vitamin D3 (25 25 mcg PO Q48H 11/07/21 12/16/21 History Mcg = 1000 Iu)] Glimepiride [Amaryl] 1 mg PO W/BRKFST 11/07/21 12/16/21 History Apixaban [Eliquis] 5 mg PO BID #60 tab 11/10/21 12/16/21 Rx Atorvastatin [Lipitor] 10 mg PO HS 12/16/21 12/16/21 History Oxybutynin Xl [Ditropan XL] 5 mg PO HS 12/16/21 12/16/21 History Spironolactone [Aldactone] 25 mg PO W/BRKFST 12/16/21 12/16/21 History amLODIPine [Norvasc] 2.5 mg PO W/BRKFST 12/16/21 12/16/21 History levETIRAcetam [Keppra] 500 mg PO Q12H 12/16/21 12/16/21 History Allergies Allergy/AdvReac Type Severity Reaction Status Date / Time adhesive tape Allergy Rash/Hives Verified 12/16/21 07:43 lactic acid [From AmLactin] Allergy Rash/Hives Verified 12/16/21 07:43 potassium lactate Allergy Rash/Hives Verified 12/16/21 07:43 [From AmLactin] sodium lactate Allergy Rash/Hives Verified 12/16/21 07:43 [From AmLactin] cephalexin [From Keflex] AdvReac Nausea & Verified 12/16/21 07:43 Vomiting fenofibrate nanocrystallized AdvReac irregular Verified 12/16/21 07:43 [From Tricor] heart rate fenofibrate,micronized AdvReac irregular Verified 12/16/21 07:43 [From Tricor] heart rate moxifloxacin [From Vigamox] AdvReac Nausea & Verified 12/16/21 07:43 Vomiting Physical Exam Osteopathic Statement: *. No significant issues noted on an osteopathic structural exam other than those noted in the History and Physical/Consult. Vitals: Vital Signs Temp Pulse Resp BP Pulse Ox 12/16/21 06:46 115/44 12/16/21 06:05 68 12 95 12/16/21 01:12 97.7 F 107 H 16 119/90 98 Intake and Output 12/15/21 12/16/21 12/16/21 22:59 06:59 14:59 Other: Weight 83.461 kg 83.461 kg Results CBC & Chem 7: 12/16/21 01:58 12/16/21 01:58 Labs: Abnormal Lab Results - Last 24 Hours (Table) 12/16/21 Range/Units 01:58 Sodium 132 L (137-145) mmol/L Carbon Dioxide 21 L (22-30) mmol/L Glucose 131 H (74-99) mg/dL Magnesium 1.3 L (1.6-2.3) mg/dL Total Bilirubin 1.5 H (0.2-1.3) mg/dL AST 42 H (14-36) U/L Thrombosis Risk Factor Assmnt - Choose All That Apply Any of the Below Risk Factors Present?: Yes Each Factor Represents 1 point: Obesity (BMI >25) Each Risk Factor Represents 3 Points: Age 75 years or older Other congenital or acquired thrombophilia - If yes, enter type in comment: Yes Each Risk Factor Represents 5 Points: Stroke (< 1 month) Thrombosis Risk Factor Assessment Total Risk Factor Score: 9 Thrombosis Risk Factor Assessment Level: High Risk
[2021-12-16 09:29] LABS: HCT 37.6 % (34.0-46.0); MCH 29.2 pg (25.0-35.0); MCHC 31.9 g/dL (31.0-37.0); MCV 91.6 fL (80.0-100.0); Mean Platelet Volume 8.2; Platelet Count 174 k/uL (150-450); RDW 13.9 % (11.5-15.5); WBC 6.5 k/uL (3.8-10.6)
[2021-12-16 09:46] LABS: ALT 13 U/L (4-34); AST 16 U/L (14-36); African American GFR (CKD) 63 (>60 ml/min/1.73 sqM); Albumin 3.1 g/dL (3.5-5.0); Albumin/Globulin Ratio 1.4; Alkaline Phosphatase 52 U/L (38-126); Anion Gap 7 mmol/L; Blood Urea Nitrogen 12 mg/dL (7-17); Carbon Dioxide 25 mmol/L (22-30); Chloride 105 mmol/L (98-107); Globulin 2.2 g/dL; Glucose 98 mg/dL (74-99); Non-African American GFR(CKD) 54 (>60 ml/min/1.73 sqM); Sodium 137 mmol/L (137-145); Total Bilirubin 0.5 mg/dL (0.2-1.3); Total Protein 5.3 g/dL (6.3-8.2)
[2021-12-16] MEDS: SODIUM CHLORIDE 0.9% 1,000 ML IV SCH ×3 (10:02→20:25)
[2021-12-16] MEDS ORDERED: DEXTROSE 50% SYRINGE 50 ML IVP PRN ×2 (11:00)
--- NOTE | 2021-12-16 11:01 | P.CONS ---
History of Present Illness - Reason for Consult Consult date: 12/16/21 GI bleed Requesting physician: Hesham Leroy - Chief Complaint Rectal bleeding - History of Present Illness This is a pleasant 81-year-old female with a past medical history of atrial fibrillation on Eliquis last taken yesterday evening, diabetes mellitus, hypertension, IBS and possible CVA versus seizure in October of this year. She was started on new medications including spironolactone, Eliquis and Keppra approximately 1 month ago. Patient is resting comfortably at this time and her daughters at the bedside Nba bites most of the history. She states that her mother yesterday afternoon around 11 12:00 and pressure that she had to have a bowel movement, had some cramping and felt that she was unable to go and was straining quite a bit. She then started having diarrhea and had met multiple episodes of loose stool throughout the day. She states in the evening she had a loose bowel movement where she had bright red blood on the tissue with wiping 4 times. Patient placed she may have a history of hemorrhoids however she's not sure. She subsequently had further bowel movements and was noted that there was some bright red blood mixed with the stool. Patient herself is denying any abdominal pain at this time, no nausea or vomiting. Apparently patient had eaten some fast food recently as well. Her last colonoscopy as documented [place] [address] Allen significant for diverticulosis. No prior history of GI bleed. Patient just recently had bowel movement there was no blood noted however was loose and yellow/light brown. Admitting hemoglobin was 12.9, with repeat this morning at 12.0. Current labs: WBC 6.5 hemoglobin 12.0 hematocrit 37 platelet count 174,000 INR 1.1 yet that might that" or my mom made that sodium 137 potassium 4.0 bun 12 creatinine 0.9 glucose 98 total bilirubin 0.5 ast 16 alt 13 alkaline phosphatase 52 Review of Systems REVIEW OF SYSTEMS: CARDIOPULMONARY: No chest pain or shortness of breath. Gastrointestinal: No current abdominal pain, but reported some pressure and cramping in her lower abdomen yesterday. No nausea or vomiting. No hematemesis, coffee-ground emesis. Bright red blood per rectum noted on tissue yesterday evening and mixed in stool. GENITOURINARY: No dysuria or hematuria. MUSCULOSKELETAL: Reports normal range of motion.. SKIN: No rashes. No jaundice. ENDOCRINE: No chills, fevers. No excessive weight gain or loss. No polydipsia or polyuria. PSYCHIATRIC: Unremarkable. NEUROLOGY: No change in mental status. Denies dizziness, headache. ENT: Vision unremarkable. CONSTITUTIONAL: No recent weight loss. No fever, chills, night sweats. Complains of increased fatigue and weakness. 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, placed on keppra October/2021 possible seizures pt going to address History of Any Multi-Drug Resistant Organisms: None Reported Past Surgical History: Appendectomy, Cholecystectomy Additional Past Surgical History / Comment(s): cataracts, partial thyroidectomy Past Anesthesia/Blood Transfusion Reactions: Motion Sickness Past Psychological History: No Psychological Hx Reported Smoking Status: Never smoker Past Alcohol Use History: None Reported Past Drug Use History: None Reported - Past Family History Father Family Medical History: Myocardial Infarction ([place]) Mother Family Medical History: COPD Additional Family Medical History / Comment(s): Alzheimer's Medications and Allergies Home Medications Medication Instructions Recorded Confirmed Type Aspirin 81 mg PO W/LUNCH 01/12/14 12/16/21 History Levothyroxine Sodium [Synthroid] 75 mcg PO W/BRKFST 01/12/14 12/16/21 History lisinopriL 40 mg PO W/BRKFST 01/12/14 12/16/21 History Calcium Carbonate [Calcium] 600 mg PO AC-BID@0900,1200 11/07/21 12/16/21 History Cholecalciferol [Vitamin D3 (25 25 mcg PO Q48H 11/07/21 12/16/21 History Mcg = 1000 Iu)] Glimepiride [Amaryl] 1 mg PO W/BRKFST 11/07/21 12/16/21 History Apixaban [Eliquis] 5 mg PO BID #60 tab 11/10/21 12/16/21 Rx Atorvastatin [Lipitor] 10 mg PO HS 12/16/21 12/16/21 History Oxybutynin Xl [Ditropan XL] 5 mg PO HS 12/16/21 12/16/21 History Spironolactone [Aldactone] 25 mg PO W/BRKFST 12/16/21 12/16/21 History amLODIPine [Norvasc] 2.5 mg PO W/BRKFST 12/16/21 12/16/21 History levETIRAcetam [Keppra] 500 mg PO Q12H 12/16/21 12/16/21 History Allergies Allergy/AdvReac Type Severity Reaction Status Date / Time adhesive tape Allergy Rash/Hives Verified 12/16/21 07:43 lactic acid [From AmLactin] Allergy Rash/Hives Verified 12/16/21 07:43 potassium lactate Allergy Rash/Hives Verified 12/16/21 07:43 [From AmLactin] sodium lactate Allergy Rash/Hives Verified 12/16/21 07:43 [From AmLactin] cephalexin [From Keflex] AdvReac Nausea & Verified 12/16/21 07:43 Vomiting fenofibrate nanocrystallized AdvReac irregular Verified 12/16/21 07:43 [From Tricor] heart rate fenofibrate,micronized AdvReac irregular Verified 12/16/21 07:43 [From Tricor] heart rate moxifloxacin [From Vigamox] AdvReac Nausea & Verified 12/16/21 07:43 Vomiting Physical Exam Vitals: Vital Signs Temp Pulse Pulse Resp BP BP Pulse Ox 12/16/21 08:00 98.8 F 84 17 127/67 93 L 12/16/21 06:46 115/44 12/16/21 06:05 68 12 95 12/16/21 01:12 97.7 F 107 H 16 119/90 98 Intake and Output 12/15/21 12/16/21 12/16/21 22:59 06:59 14:59 Other: Weight 83.461 kg 83.461 kg General appearance: The patient is alert, oriented, appears in no acute distress. HET: Head is normocephalic and atraumatic. Conjunctiva pink. Sclera anicteric. Neck: Supple without lymphadenopathy. Trachea midline. Heart: S1 S2. Regular rate and rhythm. Lungs: Clear to auscultation. Abdomen: Soft, diffuse tenderness, nondistended with bowel sounds. No guarding or rigidity. Skin: No rashes. No jaundice. Extremities: Normal skin color and turgor. No pedal edema. Neurological: No focal deficits. Alert and oriented x3. Results CBC & Chem 7: 12/16/21 09:03 12/16/21 09:03 Labs: Abnormal Lab Results - Last 24 Hours (Table) 12/16/21 Range/Units 01:58 Sodium 132 L (137-145) mmol/L Carbon Dioxide 21 L (22-30) mmol/L Glucose 131 H (74-99) mg/dL Magnesium 1.3 L (1.6-2.3) mg/dL Total Bilirubin 1.5 H (0.2-1.3) mg/dL AST 42 H (14-36) U/L Assessment and Plan (1) Rectal bleeding Narrative/Plan: 81-year-old with multiple comorbidities who was recently started on Eliquis in the last 1 month's duration for new onset atrial fibrillation came to the emergency department with concerns for lower GI bleed. Apparently patient was having some struggling and straining for bowel movement earlier in the afternoon followed by multiple episodes of loose bowel movements. During the evening she had noted bright red blood on her tissue with wiping and some mixed in the stool. Hemoglobin stable at 12.0, patient having abdominal pain and cramping without nausea or vomiting. Unknown etiology at this time could be hemorrhoidal bleed due to straining, diarrhea, also need to consider acute ischemic or infectious colitis. CT of the abdomen and pelvis ordered. Repeat CBC, continue to hold Eliquis. CT abdomen and pelvis reports sterile coral colitis/proctitis with fecal-eleanor in the rectum. Direct visualization recommended to exclude under lying malignancy if not recently performed. Colonic diverticulosis. Current Visit: Yes Status: Acute Code(s): K62.5 - HEMORRHAGE OF ANUS AND RECTUM SNOMED Code(s): 22124502 (2) Diarrhea Narrative/Plan: C. diff, stool cultures ordered Current Visit: Yes Status: Acute Code(s): R19.7 - DIARRHEA, UNSPECIFIED SNOMED Code(s): 74827494 (3) History of atrial fibrillation Current Visit: Yes Status: Acute Code(s): Z86.79 - PERSONAL HISTORY OF OTHER DISEASES OF THE CIRCULATORY SYSTEM SNOMED Code(s): 625686929 (4) Diabetes mellitus Current Visit: Yes Status: Acute Code(s): E11.9 - TYPE 2 DIABETES MELLITUS WITHOUT COMPLICATIONS SNOMED Code(s): 81324970 Plan: 1. Continue symptomatic and supportive care 2. Patient may have clear liquid diet, nothing by mouth after midnight 3. CT abdomen and pelvis with contrast ordered 4. C. diff, stool cultures ordered 5. Continue to hold Eliquis 6. Due to CT findings, will proceed with colonoscopy tomorrow 7. Bowel prep this afternoon 8. Daily CBC, transfuse for hemoglobin less than 7 Thank you for this consultation, we will continue to follow. Dr. Kelle Aquino I agree with the dictator's note, documented as a scribe by Tiffani Moon.
--- NOTE | 2021-12-16 11:19 | CT ---
EXAMINATION TYPE: CT abdomen pelvis w con CT DLP: 1373.1 mGycm, Automated exposure control for dose reduction was used. DATE OF EXAM: 12/16/2021 11:00 AM COMPARISON: None CLINICAL INDICATION:Female, 81 years old with history of abdominal pain, rectal bleeding; abdominal p ain, rectal bleeding TECHNIQUE: Axial CT of the abdomen and pelvis. Sagittal and coronal reformats were created on a [employer] workstation. Contrast used:80 mL of Isovue 300 with IV Contrast, Oral contrast used: with Oral Contrast FINDINGS: LOWER CHEST: The heart is mildly enlarged for size. There is coronary artery atherosclerosis present. ABDOMEN LIVER: Unremarkable GALLBLADDER AND BILE DUCTS: The gallbladder is surgically absent. PANCREAS: Calcifications are seen within the tail of the pancreas. SPLEEN: Unremarkable. ADRENAL GLANDS: Unremarkable KIDNEYS AND URETERS: Bilateral peripelvic renal cysts and renal cortical cysts are noted. There is no evidence of hydronephrosis or renal calculus. No obstructive uropathy identified. PELVIS BLADDER: Unremarkable REPRODUCTIVE: Unremarkable. ABDOMEN & PELVIS STOMACH AND BOWEL: No evidence of bowel obstruction. There is a fecaloma within the rectum with recta l wall thickening measuring at least 11 mm and adjacent fat stranding changes. Fecaloma measuring up to 6.8 cm in transverse dimension. Scattered clonic diverticula are present throughout the sigmoid co darion and descending colon most pronounced. PERITONEUM: No evidence of pneumoperitoneum or free fluid. VASCULATURE: No evidence of aortic aneurysm. MUSCULOSKELETAL: No acute osseous abnormalities. Moderate disc degeneration changes are present throu ghout the thoracolumbar spine. Multilevel disc bulging seen throughout the spine. There is straighten ing of the visualized spine. LYMPH NODES: No gross evidence for lymphadenopathy. 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 Direct visualization is recommended to exc lude underlying malignancy if not recently performed. 2. Colonic diverticulosis.
[2021-12-16 11:34] LABS: Glucose,Whole Blood 109 mg/dL (70-110)
[2021-12-16] MEDS: PANTOPRAZOLE 40 MG/10 ML VIAL IV SCH ×2 (12:38→20:25)
[2021-12-16] MEDS: levETIRAcetam 500 MG TAB PO SCH ×2 (12:45→20:26)
[2021-12-16] MEDS ORDERED: bisacodyL 5 MG TABLET.DR PO STA (13:32)
[2021-12-16] MEDS ORDERED: PEG 3350 (236 GM/BTL) + LYTES 4,000 ML BOTTLE PO ONE (16:00)
[2021-12-16 16:25] LABS: Glucose,Whole Blood 101 mg/dL (70-110)
[2021-12-16 20:24] LABS: Glucose,Whole Blood 125 mg/dL (70-110)
[2021-12-16] MEDS ORDERED: ATORVASTATIN 10 MG TAB PO SCH (21:00)
[2021-12-16] MEDS ORDERED: OXYBUTYNIN XL 5 MG TAB.ER.24 PO SCH (21:00)
[2021-12-17] MEDS: SODIUM CHLORIDE 0.9% 1,000 ML IV SCH ×2 (03:42→10:49)
[2021-12-17 06:51] LABS: Glucose,Whole Blood 89 mg/dL (70-110)
[2021-12-17] MEDS ORDERED: amLODIPine 2.5 MG TAB PO SCH (07:30)
[2021-12-17] MEDS ORDERED: lisinopriL 20 MG TAB PO SCH (07:30)
[2021-12-17] MEDS ORDERED: LEVOTHYROXINE 75 MCG TAB PO SCH (07:30)
[2021-12-17] MEDS: PANTOPRAZOLE 40 MG/10 ML VIAL IV SCH (09:37)
[2021-12-17] MEDS: levETIRAcetam 500 MG TAB PO SCH (09:37)
[2021-12-17] MEDS ORDERED: PROPOFOL 10 MG/ML 20 ML VIAL IV ONE (11:18)
[2021-12-17] MEDS ORDERED: IV FLUID CONTINUATION 200 ML IV ONE (11:18)
[2021-12-17] MEDS ORDERED: NA PHOS,M-B/NA PHOS,DI-BA 133 ML ENEMA RECTAL ONE (11:45)
--- NOTE | 2021-12-17 11:45 | P.PCN ---
Date of Procedure: 12/17/21 Procedure(s) Performed: BRIEF HISTORY: Patient is a 81-year-old pleasant white female scheduled for an elective colonoscopy as a part of evaluation of intermittent rectal bleeding for the last 3 days' duration. PROCEDURE PERFORMED: Colonoscopy with biopsy. PREOPERATIVE DIAGNOSIS: Rectal bleeding of 3 days' duration. IV sedation per Anesthesia. PROCEDURE: After informed consent was obtained, the patient, was brought into the endoscopy unit. IV sedation was administered by Anesthesia under continuous monitoring. Digital rectal examination was normal. Initially the Olympus CF-160 flexible video colonoscope was then inserted in the rectum, gradually advanced into the cecum without any difficulty. Careful examination was performed as the scope was gradually being withdrawn. Ileocecal valve and the appendiceal orifice were visualized and appeared normal. Prep was excellent. Mucosa of the cecum, ascending colon, transverse colon, descending colon, sigmoid colon, appeared normal. There is a large ball of stool noted in the rectum. In the distal rectum there was a superficial circumferential ulceration exiting the dentate line consistent with stercoral ulcer. Biopsies were done from this area.. Scattered left-sided diverticulosis. Retroflexion was performed in the rectum and no lesions were seen. The patient tolerated the procedure well. IMPRESSION: Superficial distal rectal circumferential ulceration extending onto the dentate line consistent with stercoral ulcer Scattered diverticulosis No evidence of colorectal neoplasia Large ball of stool in the rectum consistent with fecaloma RECOMMENDATIONS: Findings of this examination were discussed with the patient . She'll give be given a Fleet enema today. Advance diet as tolerated. Avoid constipation. Start her on osmotic laxatives which she can take as needed..
[2021-12-17 12:09] LABS: Glucose,Whole Blood 97 mg/dL (70-110)
[2021-12-17 13:43] VITALS: BP 138/68; PULSE 77; RESP 17; TEMP 97.6
[2021-12-17 14:49] LABS: HCT 37.1 % (34.0-46.0); Hypochromasia Slight; MCH 30.4 pg (25.0-35.0); MCHC 32.5 g/dL (31.0-37.0); MCV 93.5 fL (80.0-100.0); Mean Platelet Volume 7.8; Platelet Count 160 k/uL (150-450); RBC 3.96 m/uL (3.80-5.40); RDW 14.2 % (11.5-15.5); WBC 4.8 k/uL (3.8-10.6)
--- NOTE | 2021-12-17 15:16 | P.DS ---
Providers Date of admission: 12/16/21 03:30 Expected date of discharge: 12/17/21 Attending physician: Elsa Joshi MD Consults: 12/16/21 03:30 Consult Physician Routine Consulting Provider: Maureen Aquino Consult Reason/Comments: gib Do you want consulting provider notified?: Yes Primary care physician: Julia Morales MD Hospital Course: Discharge Diagnosis: GI bleed secondary to colonic ulceration Fecaloma Hyponatremia DM 2 on oral medications A fib. Hospital Course: Patient is an 81 yo femal with DM, HTN, IBS, had possible CVA vs seizure November 07, 2021, A fib, and hital hernia that presented to the ED with complaints of birght red blood per rectum. In the ED she underwent an extensive evaluation. On arrival she was slightly tachycardiac at 107. Labaratory analysis was remarkable for sodium 132, mg 1.3, total bili 1.5, and ast 42. In the emergency department she was started on magnesium, protonix, and IV fluids. She was admitted for further monitoring. CT abdomen and pelvis showed colitis/hepatitis with fecaloma in the rectum. They did recommend direct visualization she underwent colonoscopy on 12/17/21 which again showed evidence of fecal Flore[place]. Biopsies were taken and are pending at the time of discharge. Patient seen and examined at bedside. Seen in this morning and then after her c olonoscopy. She reports that she is feeling well. Denies any chest pain, shortness of breath, no additional bleeding. Vital signs reviewed and stable. General: nontoxic, no distress, appears at stated age Derm: warm, dry Head: atraumatic, normocephalic, symmetric Eyes: EOMI, no lid lag, anicteric sclera Mouth: no lip lesion, mucus membranes moist Cardiovascular: S1S2 reg, no murmur, positive posterior tibial pulse bilateral, Lungs: CTA bilateral, no rhonchi, no rales , no accessory muscle use Abdominal: soft, mild tender to palpation right lower quadrant, no guarding, no appreciable organomegaly Ext: no gross muscle atrophy, no edema, no contractures Neuro: CN II-XI grossly intact, no focal neuro deficits Psych: Alert, oriented, appropriate affect A total of 35 minutes of time were spent preparing this complex discharge summary. Patient was discharged on 12/17/21. Patient Condition at Discharge: Fair Plan - Discharge Summary Discharge Rx Participant: No New Discharge Prescriptions: New polyethylene glycoL 3350 [Miralax] 17 gm PO DAILY packet Continue Aspirin 81 mg PO W/LUNCH lisinopriL 40 mg PO W/BRKFST Levothyroxine Sodium [Synthroid] 75 mcg PO W/BRKFST Cholecalciferol [Vitamin D3 (25 Mcg = 1000 Iu)] 25 mcg PO Q48H Calcium Carbonate [Calcium] 600 mg PO AC-BID@0900,1200 Glimepiride [Amaryl] 1 mg PO W/BRKFST Apixaban [Eliquis] 5 mg PO BID #60 tab Spironolactone [Aldactone] 25 mg PO W/BRKFST Oxybutynin Xl [Ditropan XL] 5 mg PO HS amLODIPine [Norvasc] 2.5 mg PO W/BRKFST Atorvastatin [Lipitor] 10 mg PO HS levETIRAcetam [Keppra] 500 mg PO Q12H Discharge Medication List Aspirin 81 mg PO W/LUNCH 01/12/14 [History] Levothyroxine Sodium [Synthroid] 75 mcg PO W/BRKFST 01/12/14 [History] lisinopriL 40 mg PO W/BRKFST 01/12/14 [History] Calcium Carbonate [Calcium] 600 mg PO AC-BID@0900,1200 11/07/21 [History] Cholecalciferol [Vitamin D3 (25 Mcg = 1000 Iu)] 25 mcg PO Q48H 11/07/21 [History] Glimepiride [Amaryl] 1 mg PO W/BRKFST 11/07/21 [History] Apixaban [Eliquis] 5 mg PO BID #60 tab 11/10/21 [Rx] Atorvastatin [Lipitor] 10 mg PO HS 12/16/21 [History] Oxybutynin Xl [Ditropan XL] 5 mg PO HS 12/16/21 [History] Spironolactone [Aldactone] 25 mg PO W/BRKFST 12/16/21 [History] amLODIPine [Norvasc] 2.5 mg PO W/BRKFST 12/16/21 [History] levETIRAcetam [Keppra] 500 mg PO Q12H 12/16/21 [History] polyethylene glycoL 3350 [Miralax] 17 gm PO DAILY packet 12/17/21 [Rx] Follow up Appointment(s)/Referral(s): Julia Morales MD [Primary Care Provider] - 1-2 days Maureen Aquino MD [STAFF PHYSICIAN] - 2 Weeks [facility], [NON-STAFF] - As Needed Activity/Diet/Wound Care/Special Instructions: technology support analyst Miralax over the counter and take daily as directed. You may titrate to take once to twice daily as needed for BM daily to every other day High fiber diet Discharge Disposition: HOME SELF-CARE
[2021-12-17 15:29] LABS: African American GFR (CKD) 80 (>60 ml/min/1.73 sqM); Anion Gap 9 mmol/L; Blood Urea Nitrogen 6 mg/dL (7-17); Calcium 7.6 mg/dL (8.4-10.2); Carbon Dioxide 21 mmol/L (22-30); Chloride 107 mmol/L (98-107); Glucose 109 mg/dL (74-99); Non-African American GFR(CKD) 70 (>60 ml/min/1.73 sqM); Sodium 137 mmol/L (137-145)
[2021-12-18] MEDS ORDERED: polyethylene glycoL 3350 17 GM POWD.PACK PO SCH (09:00)
== END 2021-12-17 17:00 | disposition home or self-care (01) ==
LOC: EC 01:10 → 4SSUR 03:30 → INTOOBSV 03:30 → 4SSUR 04:04 → UNDODISIN 12-17 17:00
PROVIDERS: ADMIT Internal Medicine; ATTEND Internal Medicine
DX: K63.3 Ulcer of intestine (principal); K56.41 Fecal impaction; E83.42 Hypomagnesemia; E87.1 Hypo-osmolality and hyponatremia; E11.9 Type 2 diabetes mellitus without complications; N93.9 Abnormal uterine and vaginal bleeding, unspecified; K58.9 Irritable bowel syndrome, unspecified; E89.0 Postprocedural hypothyroidism; K44.9 Diaphragmatic hernia without obstruction or gangrene; I48.91 Unspecified atrial fibrillation; I25.10 Atherosclerotic heart disease of native coronary artery without angina pectoris; I11.9 Hypertensive heart disease without heart failure; M51.35 Other intervertebral disc degeneration, thoracolumbar region; K57.30 Diverticulosis of large intestine without perforation or abscess without bleeding; Z79.82 Long term (current) use of aspirin; Z79.899 Other long term (current) drug therapy; Z98.42 Cataract extraction status, left eye; Z98.41 Cataract extraction status, right eye; Z90.49 Acquired absence of other specified parts of digestive tract; Z82.49 Family history of ischemic heart disease and other diseases of the circulatory system; Z82.5 Family history of asthma and other chronic lower respiratory diseases; Z82.0 Family history of epilepsy and other diseases of the nervous system; Z79.01 Long term (current) use of anticoagulants; Z88.8 Allergy status to other drugs, medicaments and biological substances; Z79.84 Long term (current) use of oral hypoglycemic drugs
CPT/HCPCS: 96376 ×2; 96365; 96366; 96375; 99285; 36415; 97162; 86900; 86901; 88305; 80053; 80048; 83605; 83735; 84484; 85025; 85027 ×2; 85610; 85730; 86850; 87324; 87045; 87046; 83036; 74177; 45380; G0378 ×2; J2405; J3475; J2704; C9113 ×2; Q9967

== ENCOUNTER 2022-02-11 18:48 | Observation (INO) | payer MEDICARE ==
[2022-02-11] MEDS ORDERED: PANTOPRAZOLE 40 MG/10 ML VIAL IVP STA (21:31)
--- NOTE | 2022-02-11 22:06 | ED ---
General Adult HPI - General Chief complaint: GI Bleed Stated complaint: rectal bleeding Time Seen by Provider: 02/11/22 21:30 Source: patient, family, RN notes reviewed, old records reviewed Mode of arrival: ambulatory Limitations: no limitations - History of Present Illness Initial comments: Patient is an 81-year-old female with past medical history remarkable for atrial fibrillation on Eliquis, prior GI bleeds, diabetes, hypertension, thyroid disord er presents emergency Department complaining of one-day history of rectal bleeding. Endorses abdominal bloating sensation in the lower quadrants as well as multiple episodes of looser brown stools with occasional darker blood and occasional bright red blood. She is on the paper and somewhat in the toilet bowl as well. Denies any dysuria or hematuria. Denies any nausea or vomiting. Denies any chest pain or shortness of breath. Denies any lightheadedness or weakness. She was here for similar complaint back in November 2021. At that time they did find a superficial distal rectal ulceration extending into the dentate line consistent with a stercoral ulcer as well as scattered diverticulosis. She states is similar as last time. Denies any other acute colitis time. Presents over concern for GI bleed. - Related Data Home Medications Medication Instructions Recorded Confirmed Aspirin 81 mg PO W/LUNCH 01/12/14 12/16/21 Levothyroxine Sodium [Synthroid] 75 mcg PO W/BRKFST 01/12/14 12/16/21 lisinopriL 40 mg PO W/BRKFST 01/12/14 12/16/21 Calcium Carbonate [Calcium] 600 mg PO AC-BID@0900,1200 11/07/21 12/16/21 Cholecalciferol [Vitamin D3 (25 25 mcg PO Q48H 11/07/21 12/16/21 Mcg = 1000 Iu)] Glimepiride [Amaryl] 1 mg PO W/BRKFST 11/07/21 12/16/21 Atorvastatin [Lipitor] 10 mg PO HS 12/16/21 12/16/21 Oxybutynin Xl [Ditropan XL] 5 mg PO HS 12/16/21 12/16/21 Spironolactone [Aldactone] 25 mg PO W/BRKFST 12/16/21 12/16/21 amLODIPine [Norvasc] 2.5 mg PO W/BRKFST 12/16/21 12/16/21 levETIRAcetam [Keppra] 500 mg PO Q12H 12/16/21 12/16/21 Previous Rx's Medication Instructions Recorded Apixaban [Eliquis] 5 mg PO BID #60 tab 11/10/21 polyethylene glycoL 3350 [Miralax] 17 gm PO DAILY packet 12/17/21 Allergies Allergy/AdvReac Type Severity Reaction Status Date / Time adhesive tape Allergy Rash/Hives Verified 12/16/21 07:43 lactic acid [From AmLactin] Allergy Rash/Hives Verified 12/16/21 07:43 potassium lactate Allergy Rash/Hives Verified 12/16/21 07:43 [From AmLactin] sodium lactate Allergy Rash/Hives Verified 12/16/21 07:43 [From AmLactin] cephalexin [From Keflex] AdvReac Nausea & Verified 12/16/21 07:43 Vomiting fenofibrate nanocrystallized AdvReac irregular Verified 12/16/21 07:43 [From Tricor] heart rate fenofibrate,micronized AdvReac irregular Verified 12/16/21 07:43 [From Tricor] heart rate moxifloxacin [From Vigamox] AdvReac Nausea & Verified 12/16/21 07:43 Vomiting Review of Systems ROS Statement: Those systems with pertinent positive or pertinent negative responses have been documented in the HPI. Review of Systems: CONST: Denies fever EYES: Denies blurry vision ENT: Denies nasal congestion C/V: Denies Chest pain RESP: Denies shortness of breath GI: Denies abdominal pain : Denies dysuria SKIN: Denies rash. MSK: Denies joint pain. NEURO: Denies headache ROS Other: All systems not noted in ROS Statement are negative. 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, placed on keppra October/2021 possible seizures pt going to address History of Any Multi-Drug Resistant Organisms: None Reported Past Surgical History: Appendectomy, Cholecystectomy Additional Past Surgical History / Comment(s): cataracts, partial thyroidectomy Past Anesthesia/Blood Transfusion Reactions: Motion Sickness Past Psychological History: No Psychological Hx Reported Smoking Status: Never smoker Past Alcohol Use History: None Reported Past Drug Use History: None Reported - Past Family History Father Family Medical History: Myocardial Infarction ([place]) Mother Family Medical History: COPD Additional Family Medical History / Comment(s): Alzheimer's General Exam - General Exam Comments Initial Comments: General: Appears in no acute distress. HEAD: Normal with no signs of head trauma. EYES: PERRLA, EOMI, conjunctiva normal, no discharge. ENT: Hearing grossly intact, normal oropharynx. RESPIRATORY: Clear breath sounds bilaterally. No wheezes, rales, or rhonchi. C/V: Irregular rate and rhythm. S1 and S2 auscultated, no edema, peripheral pulses 2+ and intact throughout ABD: Abd is soft, nontender, nondistended. Rectal exam shows no gross blood. No hemorrhoids. Good rectal tone. Occult was sent. Brown stool present. EXT: Normal range of motion, no obvious deformity SKIN: No rashes or lesions observed on exposed skin. NEURO: Alert and oriented 4. No focal deficits. Ambulates with a walker at baseline. Limitations: no limitations Course Vital Signs 02/11/22 02/11/22 18:58 22:43 Temperature 98.5 F Pulse Rate 73 72 Respiratory 16 18 Rate Blood Pressure 148/79 140/82 O2 Sat by Pulse 98 98 Oximetry Medical Decision Making - Medical Decision Making Based on the patient's presentation and physical exam, I'm concerned for an acute GI bleeding the patient. Does have a history of these. Is still on blood thinners. Exam and vital signs are within acceptable limits. No signs of acute bleeding on rectal exam. However we will obtain abdominal laboratory studies, type and screen, screening EKG, CT abdomen and pelvis GI bleed protocol. She'll be given IV Protonix and declines further medications at this time. She was in agreement this plan. EKG shows no signs of acute ischemia.Laboratory studies are remarkable for hemoglobin of 12.7 which is within acceptable limits. Stool occult blood was positive. Remainder the labs are relatively unremarkable. As previously disc ussed, rectal exam showed no gross bleeding. CT abdomen and pelvis showed diverticulosis without diverticulitis. No evidence of active GI bleeding. However despite me requesting GI bleed protocol, it was not completed with a GI bleed protocol, and radiologist states that it is difficult to definitively evaluate but shows no large GI bleeding. On reevaluation, vital signs remaining within normal limits. I did discuss with her as well as her son her workup. I did recommend that we admit her to the hospital observation telemetry, as she is on a blood thinner which we'll hold at this time as well as the new-onset bleed symptoms. She was in agreement with this plan. Dr. Aquino her GI specialist will be consulted as well. Repeat labs were ordered for the morning. I spoke with the admitting observation physician, Dr. Joshi who accepted the patient. Patient was admitted in stable condition. Blood thinners being held at this time. - Lab Data Result diagrams: 02/11/22 22:13 02/11/22 22:13 Lab Results 02/11/22 02/11/22 02/11/22 Range/Units 22:13 22:13 22:13 WBC 6.6 (3.8-10.6) k/uL RBC 4.21 (3.80-5.40) m/uL Hgb 12.7 (11.4-16.0) gm/dL Hct 37.2 (34.0-46.0) % MCV 88.4 D (80.0-100.0) fL MCH 30.2 (25.0-35.0) pg MCHC 34.1 (31.0-37.0) g/dL RDW 13.3 (11.5-15.5) % Plt Count 190 (150-450) k/uL MPV 7.3 Neutrophils % 60 % Lymphocytes % 32 % Monocytes % 5 % Eosinophils % 2 % Basophils % 0 % Neutrophils # 3.9 (1.3-7.7) k/uL Lymphocytes # 2.1 (1.0-4.8) k/uL Monocytes # 0.3 (0-1.0) k/uL Eosinophils # 0.1 (0-0.7) k/uL Basophils # 0.0 (0-0.2) k/uL PT 11.0 (9.0-12.0) sec INR 1.0 (<1.2) APTT 25.2 (22.0-30.0) sec Sodium (137-145) mmol/L Potassium (3.5-5.1) mmol/L Chloride (98-107) mmol/L Carbon Dioxide (22-30) mmol/L Anion Gap mmol/L BUN (7-17) mg/dL Creatinine (0.52-1.04) mg/dL Est GFR (CKD-EPI)AfAm (>60 ml/min/1.73 sqM) Est GFR (CKD-EPI)NonAf (>60 ml/min/1.73 sqM) Glucose (74-99) mg/dL Plasma Lactic Acid Ceasar (0.7-2.0) mmol/L Calcium (8.4-10.2) mg/dL Magnesium (1.6-2.3) mg/dL Total Bilirubin (0.2-1.3) mg/dL AST (14-36) U/L ALT (4-34) U/L Alkaline Phosphatase (38-126) U/L Total Protein (6.3-8.2) g/dL Albumin (3.5-5.0) g/dL Stool Occult Blood Positive H (Negative) Blood Type Blood Type Recheck Bld Type Recheck Status Antibody Screen Spec Expiration Date 02/11/22 02/11/22 02/11/22 Range/Units 22:13 22:13 22:27 WBC (3.8-10.6) k/uL RBC (3.80-5.40) m/uL Hgb (11.4-16.0) gm/dL Hct (34.0-46.0) % MCV (80.0-100.0) fL MCH (25.0-35.0) pg MCHC (31.0-37.0) g/dL RDW (11.5-15.5) % Plt Count (150-450) k/uL MPV Neutrophils % % Lymphocytes % % Monocytes % % Eosinophils % % Basophils % % Neutrophils # (1.3-7.7) k/uL Lymphocytes # (1.0-4.8) k/uL Monocytes # (0-1.0) k/uL Eosinophils # (0-0.7) k/uL Basophils # (0-0.2) k/uL PT (9.0-12.0) sec INR (<1.2) APTT (22.0-30.0) sec Sodium 136 L (137-145) mmol/L Potassium 4.1 (3.5-5.1) mmol/L Chloride 100 (98-107) mmol/L Carbon Dioxide 27 (22-30) mmol/L Anion Gap 9 mmol/L BUN 18 H (7-17) mg/dL Creatinine 1.01 (0.52-1.04) mg/dL Est GFR (CKD-EPI)AfAm 60 (>60 ml/min/1.73 sqM) Est GFR (CKD-EPI)NonAf 52 (>60 ml/min/1.73 sqM) Glucose 139 H (74-99) mg/dL Plasma Lactic Acid Ceasar 0.9 (0.7-2.0) mmol/L Calcium 9.0 (8.4-10.2) mg/dL Magnesium 1.6 (1.6-2.3) mg/dL Total Bilirubin 0.5 (0.2-1.3) mg/dL AST 19 (14-36) U/L ALT 15 (4-34) U/L Alkaline Phosphatase 60 (38-126) U/L Total Protein 6.0 L (6.3-8.2) g/dL Albumin 3.8 (3.5-5.0) g/dL Stool Occult Blood (Negative) Blood Type A Positive Blood Type Recheck A Pos Bld Type Recheck Status No Antibody Screen NEGATIVE Spec Expiration Date 02/14/20222326 - EKG Data -: EKG Interpreted by Me EKG Comments: 12-lead Electrocardiogram Interpretation Note EKG was reviewed and interpreted by myself. 12-lead ECG performed at 2153 is interpreted by me as revealing normal sinus rhythm at a rate of 66 beats per minute. [place] is normal. MD interval is 197 ms, QRS duration is 93 ms, QTc is 418 ms.. There were no ST or T wave abnormalities to suggest myocardial ischemia or injury. R wave progression across the precordium was satisfactory. By my interpretation this EKG is non-diagnostic for acute ischemia. There is baseline motion artifact present throughout the EKG. Disposition Clinical Impression: Rectal bleeding, Fecal occult blood test positive Disposition: ADMITTED IP TO THIS [facility] Condition: Stable Referrals: Yasmany Patterson MD [Primary Care Provider] - 1-2 days Time of Disposition: 00:30
[2022-02-11 22:44] LABS: Basophils % (A) 0 %; Eosinophils # (A) 0.1 k/uL (0-0.7); Eosinophils % (A) 2 %; HCT 37.2 % (34.0-46.0); HGB 12.7 gm/dL (11.4-16.0); Lymphocytes # (A) 2.1 k/uL (1.0-4.8); Lymphocytes % (A) 32 %; MCH 30.2 pg (25.0-35.0); MCHC 34.1 g/dL (31.0-37.0); Mean Platelet Volume 7.3; Monocytes # (A) 0.3 k/uL (0-1.0); Monocytes % (A) 5 %; Neutrophils # (A) 3.9 k/uL (1.3-7.7); Neutrophils % (A) 60 %; Platelet Count 190 k/uL (150-450); RBC 4.21 m/uL (3.80-5.40); RDW 13.3 % (11.5-15.5); WBC 6.6 k/uL (3.8-10.6)
[2022-02-11 22:47] LABS: Partial Thromboplastin Time 25.2 sec (22.0-30.0)
[2022-02-11 22:51] LABS: Albumin 3.8 g/dL (3.5-5.0); Magnesium 1.6 mg/dL (1.6-2.3); Potassium 4.1 mmol/L (3.5-5.1); Total Bilirubin 0.5 mg/dL (0.2-1.3)
[2022-02-11 23:08] LABS: MCV 88.4 fL (80.0-100.0)
--- NOTE | 2022-02-12 00:36 | CT ---
EXAMINATION TYPE: CT abdomen pelvis w con DATE OF EXAM: 02/11/2022 COMPARISON: 12/16/2021 HISTORY: R/O GI bleed CT DLP: 1958.5 mGycm Automated exposure control for dose reduction was used. CONTRAST: Performed with IV Contrast, patient injected with 80 mL of Isovue 370. Images obtained from the diaphragm to the floor the pelvis without and with the IV contrast. There ar e Three-D postprocessed images. There is a small hiatal hernia. Lung bases are clear of consolidation. There is minimal subsegmental atelectasis at the lung bases. Heart is enlarged. Liver spleen and stomach pancreas appear intact. The bile ducts are not dilated. Gallbladder appears absent. There is no adrenal mass. Kidneys show bilateral contrast opacification there are numerous renal para pelvic cysts. No retroperitoneal adenopathy. Ureters are not dilated. Bladder distends smoothly. No i nguinal hernia. No free fluid in the pelvis. No pelvic mass. There are numerous sigmoid diverticula. No diverticulitis. There is normal contrast opacification of the abdominal aorta. There is arterial flow in the celiac a rtery and superior mesenteric artery. There is arterial flow in the renal and iliac and femoral arter ies. No aneurysm or dissection. Uterus is anteverted. The lumbar spine is intact. No compression fracture. There is multilevel vacuum disks. The bony pelvis is intact. The hip joints are intact. Sacroiliac joints are intact. No contrast extravasation seen. IMPRESSION: Colonic diverticulosis without diverticulitis. No evidence of active GI bleeding. Unfortunately there are no venous phase images of the abdomen which would be much more sensitive to d etect active GI bleeding. This exam not performed according to a GI bleed protocol. I do not suspect that there is any active large bowel GI bleeding since the fecal pattern is normal and no sign of any fluid accumulation.
[2022-02-12] MEDS ORDERED: NALOXONE 0.4 MG/ML 1 ML VIAL IV PRN (01:07)
--- NOTE | 2022-02-12 02:35 | P.HPIM ---
History of Present Illness H&P Date: 02/12/22 Chief Complaint: bright red blood per rectum 81 year old female with afib on eliquis patient comes in for evaluation due to 1 day history of recurrent bleeding per rectum. she started noticing it today, with every bowel movement which happened to be loose today. it all started when this morning she felt the urge to go to the bathroom and was constipated initially then passed some hard stool followed by bloody diarrhea. this is not associated with any abd pain , nausea or vomtiing, no chest pain or trouble breathing, no dizziness, or lightheadedness. denies any falls or near syncope she had another episoded of GI bleeding back in October , after her stroke, Cscope at that time, found that she had an ulcer in her colon (she is not sure). in the ED blood work was overall unremarkable , hemoglobin within normal limits. occult blood test in the stool was positive. Review of Systems Pertinent positives as noted in HPI. 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, placed on keppra October/2021 possible seizures pt going to address History of Any Multi-Drug Resistant Organisms: None Reported Past Surgical History: Appendectomy, Cholecystectomy Additional Past Surgical History / Comment(s): cataracts, partial thyroidectomy Past Anesthesia/Blood Transfusion Reactions: Motion Sickness Past Psychological History: No Psychological Hx Reported Smoking Status: Never smoker Past Alcohol Use History: None Reported Past Drug Use History: None Reported - Past Family History Father Family Medical History: Myocardial Infarction (AL) Mother Family Medical History: COPD Additional Family Medical History / Comment(s): Alzheimer's Medications and Allergies Home Medications Medication Instructions Recorded Confirmed Type Aspirin 81 mg PO W/LUNCH 01/12/14 12/16/21 History Levothyroxine Sodium [Synthroid] 75 mcg PO W/BRKFST 01/12/14 12/16/21 History lisinopriL 40 mg PO W/BRKFST 01/12/14 12/16/21 History Calcium Carbonate [Calcium] 600 mg PO AC-BID@0900,1200 07/15/22 08/23/22 History Cholecalciferol [Vitamin D3 (25 25 mcg PO Q48H 11/07/21 12/16/21 History Mcg = 1000 Iu)] Glimepiride [Amaryl] 1 mg PO W/BRKFST 11/07/21 12/16/21 History Apixaban [Eliquis] 5 mg PO BID #60 tab 11/10/21 12/16/21 Rx Atorvastatin [Lipitor] 10 mg PO HS 12/16/21 12/16/21 History Oxybutynin Xl [Ditropan XL] 5 mg PO HS 12/16/21 12/16/21 History Spironolactone [Aldactone] 25 mg PO W/BRKFST 12/16/21 12/16/21 History amLODIPine [Norvasc] 2.5 mg PO W/BRKFST 12/16/21 12/16/21 History levETIRAcetam [Keppra] 500 mg PO Q12H 12/16/21 12/16/21 History polyethylene glycoL 3350 [Miralax] 17 gm PO DAILY packet 12/17/21 Rx Allergies Allergy/AdvReac Type Severity Reaction Status Date / Time adhesive tape Allergy Rash/Hives Verified 12/16/21 07:43 lactic acid [From AmLactin] Allergy Rash/Hives Verified 12/16/21 07:43 potassium lactate Allergy Rash/Hives Verified 12/16/21 07:43 [From AmLactin] sodium lactate Allergy Rash/Hives Verified 12/16/21 07:43 [From AmLactin] cephalexin [From Keflex] AdvReac Nausea & Verified 12/16/21 07:43 Vomiting fenofibrate nanocrystallized AdvReac irregular Verified 12/16/21 07:43 [From Tricor] heart rate fenofibrate,micronized AdvReac irregular Verified 12/16/21 07:43 [From Tricor] heart rate moxifloxacin [From Vigamox] AdvReac Nausea & Verified 12/16/21 07:43 Vomiting Physical Exam Vitals: Vital Signs Temp Pulse Resp BP Pulse Ox 02/11/22 22:43 72 18 140/82 98 02/11/22 18:58 98.5 F 73 16 148/79 98 Intake and Output 1002/11/22 02/12/22 14:59 22:59 06:59 Other: Weight 83.915 kg Constitutional: No acute distress, conversant, pleasant Eyes: Anicteric sclerae, moist conjunctiva, Pupils equal round reactive to light ENMT: NC/AT Oropharynx clear, no erythema, or exudates Neck: Supple, no masses, or JVD No carotid bruits No thyromegaly Lungs: Clear to auscultation Clear to percussion Normal respiratory effort, no accessory muscle use Cardiovascular: Heart regular in rate and rhythm, No murmurs, gallops, or rubs No peripheral edema Abdominal: Soft Nontender, no guarding, rebound or rigidity Abdomen moving with respiration Normoactive bowel sounds No hepatomegaly, No splenomegaly No palpable mass No abdominal wall hernia noted Skin: multiple lesion s on the face and nose, with patches of macular erythema , otherwise , Normal temperature, tone, texture, turgor No induration No subcutaneous nodules No rash, lesions No ulcers Extremities: No digital cyanosis No clubbing Pedal pulses intact and symmetrical Radial pulses intact and symmetrical No calf tenderness Psychiatric: Alert and oriented to person, place and time Appropriate affect fair judgement Neuro Muscles Strength 5/5 in all 4 extremities Sensation to light touch grossly present throughout Cranial nerves II-XII grossly intact Lymphatics: no palpable cervical or supraclavicular lymph nodes Results CBC & Chem 7: 02/11/22 22:13 02/11/22 22:13 Labs: Abnormal Lab Results - Last 24 Hours (Table) 02/11/22 02/11/22 Range/Units 22:13 22:13 Sodium 136 L (137-145) mmol/L BUN 18 H (7-17) mg/dL Glucose 139 H (74-99) mg/dL Total Protein 6.0 L (6.3-8.2) g/dL Stool Occult Blood Positive H (Negative) Assessment and Plan Assessment: GI bleeding GI consult hold ASA, eliquis monitor Hgb PPI BID monitor vital signs CT abd showed diverticulosis chronic condition s DM insulin sliding scale afib, eliquis on hold hypertension , resume lisinopril , amlodipine hypothyroid , resume levothyroxine keppra , patient does not know why she is on keppra full code SCD for DVT PPX , due to GI bleeding
[2022-02-12] MEDS: levETIRAcetam 250 MG TAB PO SCH ×3 (02:52→21:00)
[2022-02-12] MEDS: LEVOTHYROXINE 75 MCG TAB PO SCH (06:49)
[2022-02-12 08:33] LABS: Glucose,Whole Blood 122 mg/dL (70-110)
[2022-02-12] MEDS: PANTOPRAZOLE 40 MG TABLET PO SCH ×2 (08:58→16:51)
[2022-02-12] MEDS: SPIRONOLACTONE 25 MG TAB PO SCH (08:59)
[2022-02-12] MEDS: amLODIPine 2.5 MG TAB PO SCH (08:59)
[2022-02-12] MEDS: lisinopriL 20 MG TAB PO SCH (08:59)
[2022-02-12] MEDS: INSULIN ASPART (NovoLOG) 100 UNIT/ML VIAL SQ SCH ×4 (09:03→21:40)
[2022-02-12 10:21] LABS: Basophils % (A) 1 %; Eosinophils # (A) 0.2 k/uL (0-0.7); Eosinophils % (A) 4 %; HCT 38.9 % (34.0-46.0); Hypochromasia Slight; Lymphocytes # (A) 1.7 k/uL (1.0-4.8); Lymphocytes % (A) 32 %; MCH 30.2 pg (25.0-35.0); MCHC 33.3 g/dL (31.0-37.0); MCV 90.7 fL (80.0-100.0); Mean Platelet Volume 7.4; Monocytes # (A) 0.2 k/uL (0-1.0); Monocytes % (A) 4 %; Neutrophils # (A) 3.1 k/uL (1.3-7.7); Neutrophils % (A) 57 %; Platelet Count 191 k/uL (150-450); RBC 4.29 m/uL (3.80-5.40); RDW 13.6 % (11.5-15.5); WBC 5.4 k/uL (3.8-10.6)
[2022-02-12 10:30] LABS: African American GFR (CKD) 62 (>60 ml/min/1.73 sqM); Anion Gap 10 mmol/L; Blood Urea Nitrogen 16 mg/dL (7-17); Calcium 8.9 mg/dL (8.4-10.2); Carbon Dioxide 24 mmol/L (22-30); Chloride 104 mmol/L (98-107); Glucose 141 mg/dL (74-99); Non-African American GFR(CKD) 53 (>60 ml/min/1.73 sqM); Potassium 4.5 mmol/L (3.5-5.1); Sodium 138 mmol/L (137-145)
[2022-02-12] MEDS ORDERED: LACTULOSE 20 GM/30 ML CUP PO ONE (10:43)
[2022-02-12] MEDS ORDERED: NA PHOS,M-B/NA PHOS,DI-BA 133 ML ENEMA RECTAL ONE (10:43)
--- NOTE | 2022-02-12 11:04 | P.CONS ---
History of Present Illness - Reason for Consult Consult date: 02/12/22 Rectal bleeding Requesting physician: Brandon Blackman - Chief Complaint Rectal bleeding - History of Present Illness There is a pleasant 81-year-old female who presented to the emergency department yesterday with complaints of rectal bleeding. She states that she has been constipated for almost 1 week duration. She's been straining to go to the bathroom and had noticed some bright red blood and dark blood on her toilet tissue as well as in the toilet. Gastroenterology was consulted for GI bleed. She has a past medical history of atrial fibrillation on Eliquis, CVA, diabetes mellitus, hyperlipidemia, hypertension, hypothyroid disease, IBS with constipation and skin cancer. She had similar symptoms in November of this year and was hospitalized. At that time she underwent a colonoscopy by Dr. Aquino on 12/17/2021 that showed a superficial distal rectal circumferential ulceration extending into the dentate line consistent with stercoral ulcer. Gathered dive rticulosis, no evidence of colorectal neoplasia, large ball of stool in the rectum consistent with fecal home. She was recommended to start osmotic laxatives as needed. Patient states she has been taking laxatives and having more regular bowel movements up until last week. She states her last bowel movement was last Wednesday. She went away for the weekend with her son and did not take any laxatives and has not had a bowel movement since then. She's feels pressure like she has to have a bowel movement however yesterday she says that she just had a little bit of loose watery stool with a small amount of formed stool that came out followed by blood with straining. She denies any abdominal pain, only complaints of abdominal bloating. No nausea or vomiting. Hemoglobin is stable. Labs WBC 5.4 hemoglobin 13 hematocrit 38 platelet count 191,000 1.0 sodium 138 potassium 4.5, BUN 16 creatinine 1 glucose 141 stool occult blood positive CT abdomen and pelvis with contrast reports colonic diverticulosis without diverticulitis. No evidence of active GI bleed. Review of Systems REVIEW OF SYSTEMS: CARDIOPULMONARY: No chest pain or shortness of breath. Gastrointestinal: No abdominal pain, reports bloating. No nausea or vomiting. No hematemesis, coffee-ground emesis. Rectal bleeding, constipation, straining. GENITOURINARY: No dysuria or hematuria. MUSCULOSKELETAL: Reports normal range of motion. Joint pain. SKIN: No rashes. No jaundice. ENDOCRINE: No chills, fevers. No excessive weight gain or loss. No polydipsia or polyuria. PSYCHIATRIC: Unremarkable. NEUROLOGY: No change in mental status. Denies dizziness, headache. ENT: Vision unremarkable. CONSTITUTIONAL: No recent weight loss. No fever, chills, night sweats. 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, placed on keppra October/2021 possible seizures pt going to address History of Any Multi-Drug Resistant Organisms: None Reported Past Surgical History: Appendectomy, Cholecystectomy Additional Past Surgical History / Comment(s): cataracts, partial thyroidectomy Past Anesthesia/Blood Transfusion Reactions: Motion Sickness Past Psychological History: No Psychological Hx Reported Smoking Status: Never smoker Past Alcohol Use History: None Reported Past Drug Use History: None Reported - Past Family History Father Family Medical History: Myocardial Infarction (AL) Mother Family Medical History: COPD Additional Family Medical History / Comment(s): Alzheimer's Medications and Allergies Home Medications Medication Instructions Recorded Confirmed Type Aspirin 81 mg PO W/LUNCH 01/12/14 02/12/22 History Levothyroxine Sodium [Synthroid] 75 mcg PO W/BRKFST 01/12/14 02/12/22 History lisinopriL 40 mg PO W/BRKFST 01/12/14 02/12/22 History Calcium Carbonate [Calcium] 600 mg PO AC-BID@0900,1200 11/07/21 02/12/22 History Cholecalciferol [Vitamin D3 (25 25 mcg PO Q48H 11/07/21 02/12/22 History Mcg = 1000 Iu)] Glimepiride [Amaryl] 1 mg PO W/BRKFST 11/07/21 02/12/22 History Apixaban [Eliquis] 5 mg PO BID #60 tab 11/10/21 02/12/22 Rx Atorvastatin [Lipitor] 10 mg PO HS 12/16/21 02/12/22 History Spironolactone [Aldactone] 25 mg PO W/BRKFST 12/16/21 02/12/22 History amLODIPine [Norvasc] 2.5 mg PO W/BRKFST 12/16/21 02/12/22 History levETIRAcetam [Keppra] 500 mg PO Q12H 12/16/21 02/12/22 History polyethylene glycoL 3350 [Miralax] 17 gm PO DAILY packet 12/17/21 02/12/22 Rx Oxybutynin Chloride 5 mg PO HS 02/12/22 02/12/22 History Allergies Allergy/AdvReac Type Severity Reaction Status Date / Time adhesive tape Allergy Rash/Hives Verified 02/12/22 08:38 lactic acid [From AmLactin] Allergy Rash/Hives Verified 02/12/22 08:38 potassium lactate Allergy Rash/Hives Verified 02/12/22 08:38 [From AmLactin] sodium lactate Allergy Rash/Hives Verified 02/12/22 08:38 [From AmLactin] cephalexin [From Keflex] AdvReac Nausea & Verified 02/12/22 08:38 Vomiting fenofibrate nanocrystallized AdvReac irregular Verified 02/12/22 08:38 [From Tricor] heart rate fenofibrate,micronized AdvReac irregular Verified 02/12/22 08:38 [From Tricor] heart rate moxifloxacin [From Vigamox] AdvReac Nausea & Verified 02/12/22 08:38 Vomiting Physical Exam Vitals: Vital Signs Temp Pulse Resp BP Pulse Ox 02/12/22 08:58 71 16 143/63 99 02/12/22 06:50 62 16 132/73 96 02/12/22 02:53 59 L 18 133/63 95 02/11/22 22:43 72 18 140/82 98 02/11/22 18:58 98.5 F 73 16 148/79 98 Intake and Output 02/11/22 02/12/22 02/12/22 22:59 06:59 14:59 Other: Weight 83.915 kg General appearance: The patient is alert, oriented, appears in no acute distress. HET: Head is normocephalic and atraumatic. Conjunctiva pink. Sclera anicteric. Neck: Supple without lymphadenopathy. Trachea midline. Heart: S1 S2. Regular rate and rhythm. Lungs: Clear to auscultation. Abdomen: Soft, nontender, nondistended with bowel sounds. No guarding or rigidity. Skin: No rashes. No jaundice. Extremities: Normal skin color and turgor. No pedal edema. Neurological: No focal deficits. Alert and oriented x3. Results CBC & Chem 7: 02/12/22 10:06 02/12/22 10:06 Labs: Abnormal Lab Results - Last 24 Hours (Table) 02/11/22 02/11/22 02/12/22 Range/Units 22:13 22:13 08:32 Sodium 136 L (137-145) mmol/L BUN 18 H (7-17) mg/dL Glucose 139 H (74-99) mg/dL POC Glucose (mg/dL) 122 H (70-110) mg/dL Total Protein 6.0 L (6.3-8.2) g/dL Stool Occult Blood Positive H (Negative) 02/12/22 Range/Units 10:06 Sodium (137-145) mmol/L BUN (7-17) mg/dL Glucose 141 H (74-99) mg/dL POC Glucose (mg/dL) (70-110) mg/dL Total Protein (6.3-8.2) g/dL Stool Occult Blood (Negative) CT scan - abdomen: report reviewed ( CT abdomen and pelvis with contrast reports colonic diverticulosis without diverticulitis. No evidence of active GI bleed.) Assessment and Plan (1) Rectal bleeding Narrative/Plan: 81-year-old female presented to the emergency department with complaints of rectal bleeding that began 1-2 days ago. She states she has been constipated and has not had a bowel movement since Wednesday. She's been straining. She had similar symptoms back in November of this year and was admitted to the hospital. At that time she underwent a colonoscopy with Dr. Aquino on 12/17/2021 with findings of the stercoral ulcer and large bowel of stool in the rectum consistent with fecaloma. She was recommended to take a stent laxatives as ne eded. She states she had not taken any over the weekend and she was traveling with her son. Since then she has been constipated and unable to have a bowel movement. This morning she had a very loose watery bowel movement with a very small stool with noted blood on her toilet tissue and in the toilet. No abdominal pain nausea or vomiting. CT of abdomen shows diverticulosis. She does take Eliquis for atrial fibrillation. Likely we are dealing with bleeding from stercoral ulcer, possible hemorrhoidal bleeding related to straining. Current Visit: Yes Status: Acute Code(s): K62.5 - HEMORRHAGE OF ANUS AND RECTUM SNOMED Code(s): 52893987 (2) Atrial fibrillation Narrative/Plan: On Eliquis Current Visit: Yes Status: Acute Code(s): I48.91 - UNSPECIFIED ATRIAL FIBR ILLATION SNOMED Code(s): 24250857 (3) Fecal occult blood test positive Current Visit: Yes Status: Acute Code(s): R19.5 - OTHER FECAL ABNORMALITIES SNOMED Code(s): 14552501 Plan: 1. Continue symptomatic spelled 2. HOLD Eliquis 3. Given a dose of lactulose 20 g 1 4. MiraLAX daily 5. Fleets enema, if patient does not have a good bowel movement after Fleet enema may give soapsuds enema 6. Daily CBC 7. Further recommendations forthcoming pending clinical course Thank you for this consultation, we'll continue to follow. Dr. Kelle Aquino I agree with the dictator's note, documented as a scribe by Tiffani Moon.
[2022-02-12 14:15] LABS: Glucose,Whole Blood 141 mg/dL (70-110)
[2022-02-12 16:47] LABS: Glucose,Whole Blood 151 mg/dL (70-110)
[2022-02-12] MEDS ORDERED: OXYBUTYNIN XL 5 MG TAB.ER.24 PO SCH (21:00)
[2022-02-12] MEDS ORDERED: ATORVASTATIN 10 MG TAB PO SCH (21:00)
[2022-02-12 21:29] LABS: Glucose,Whole Blood 129 mg/dL (70-110)
[2022-02-13 03:59] VITALS: PULSE 65
[2022-02-13] MEDS: LEVOTHYROXINE 75 MCG TAB PO SCH (05:45)
[2022-02-13 06:39] LABS: Basophils % (A) 1 %; Eosinophils # (A) 0.3 k/uL (0-0.7); Eosinophils % (A) 5 %; HGB 12.7 gm/dL (11.4-16.0); Hypochromasia Slight; Lymphocytes # (A) 2.1 k/uL (1.0-4.8); Lymphocytes % (A) 38 %; MCH 30.2 pg (25.0-35.0); MCHC 32.6 g/dL (31.0-37.0); MCV 92.9 fL (80.0-100.0); Mean Platelet Volume 7.6; Monocytes # (A) 0.3 k/uL (0-1.0); Monocytes % (A) 6 %; Neutrophils # (A) 2.6 k/uL (1.3-7.7); Neutrophils % (A) 48 %; Platelet Count 157 k/uL (150-450); RDW 13.5 % (11.5-15.5); WBC 5.4 k/uL (3.8-10.6)
[2022-02-13 06:52] LABS: African American GFR (CKD) 54 (>60 ml/min/1.73 sqM); Anion Gap 9 mmol/L; Blood Urea Nitrogen 18 mg/dL (7-17); Calcium 8.5 mg/dL (8.4-10.2); Carbon Dioxide 25 mmol/L (22-30); Chloride 104 mmol/L (98-107); Glucose 116 mg/dL (74-99); Non-African American GFR(CKD) 47 (>60 ml/min/1.73 sqM); Potassium 4.3 mmol/L (3.5-5.1); Sodium 138 mmol/L (137-145)
[2022-02-13 07:52] LABS: Glucose,Whole Blood 111 mg/dL (70-110)
[2022-02-13] MEDS: INSULIN ASPART (NovoLOG) 100 UNIT/ML VIAL SQ SCH (07:59)
[2022-02-13] MEDS: lisinopriL 20 MG TAB PO SCH (08:33)
[2022-02-13] MEDS: PANTOPRAZOLE 40 MG TABLET PO SCH (08:33)
[2022-02-13] MEDS: amLODIPine 2.5 MG TAB PO SCH (08:33)
[2022-02-13] MEDS: levETIRAcetam 250 MG TAB PO SCH (08:33)
[2022-02-13] MEDS: SPIRONOLACTONE 25 MG TAB PO SCH (08:33)
[2022-02-13 08:38] VITALS: BP 148/80; RESP 18; TEMP 97.8
[2022-02-13] MEDS ORDERED: polyethylene glycoL 3350 17 GM POWD.PACK PO SCH (09:00)
[2022-02-13] MEDS ORDERED: APIXABAN 5 MG TAB PO SCH (09:00)
--- NOTE | 2022-02-13 12:11 | P.PN ---
Subjective Progress Note Date: 02/13/22 Principal diagnosis: Rectal bleeding, constipation There is a pleasant 81-year-old female who presented to the emergency department yesterday with complaints of rectal bleeding. She states that she has been constipated for almost 1 week duration. She's been straining to go to the bathroom and had noticed some bright red blood and dark blood on her toilet tissue as well as in the toilet. Gastroenterology was consulted for GI bleed. She has a past medical history of atrial fibrillation on Eliquis, CVA, diabetes mellitus, hyperlipidemia, hypertension, hypothyroid disease, IBS with constipation and skin cancer. She had similar symptoms in November of this year and was hospitalized. At that time she underwent a colonoscopy by Dr. Aquino on 12/17/2021 that showed a superficial distal rectal circumferential ulceration extending into the dentate line consistent with stercoral ulcer. Gathered diverticulosis, no evidence of colorectal neoplasia, large ball of stool in the rectum consistent with fecal home. She was recommended to start osmotic laxatives as needed. Patient states she has been taking laxatives and having more regular bowel movements up until last week. She states her last bowel movement was last Wednesday. She went away for the weekend with her son and did not take any laxatives and has not had a bowel movement since then. She's feels pressure like she has to have a bowel movement however yesterday she says that she just had a little bit of loose watery stool with a small amount of formed stool that came out followed by blood with straining. She denies any abdominal pain, only complaints of abdominal bloating. No nausea or vomiting. Hemoglobin is stable. Objective - Vital Signs Vital signs: Vital Signs Temp 98.0 F 02/13/22 03:19 Pulse 65 02/13/22 03:19 Resp 16 02/13/22 03:19 BP 109/52 02/13/22 03:19 Pulse Ox 97 02/13/22 03:19 FiO2 Intake & Output 02/12/22 02/12/22 02/13/22 06:59 18:59 06:59 Weight 83.915 kg Other: Voiding Method Toilet # Voids 1 # Bowel Movements 1 - Exam General appearance: The patient is alert, oriented, appears in no acute distress. HET: Head is normocephalic and atraumatic. Conjunctiva pink. Sclera anicteric. Neck: Supple without lymphadenopathy. Abdomen: Soft, nontender, nondistended with bowel sounds. No guarding or rigidity. Extremities: Normal skin color and turgor. No pedal edema Skin: No rashes, no jaundice Neurological: No focal deficits. Alert and oriented. - Labs CBC & Chem 7: 02/13/22 06:12 02/13/22 06:12 Labs: Abnormal Lab Results - Last 24 Hours (Table) 02/12/22 02/12/22 02/12/22 Range/Units 08:32 10:06 14:00 Glucose 141 H (74-99) mg/dL POC Glucose (mg/dL) 122 H 141 H (70-110) mg/dL 02/12/22 02/12/22 Range/Units 16:43 21:27 Glucose (74-99) mg/dL POC Glucose (mg/dL) 151 H 129 H (70-110) mg/dL Assessment and Plan (1) Rectal bleeding Narrative/Plan: 81-year-old female presented to the emergency department with complaints of rectal bleeding that began 1-2 days ago. She states she has been constipated and has not had a bowel movement since Wednesday. She's been straining. She had similar symptoms back in November of this year and was admitted to the hospital. At that time she underwent a colonoscopy with Dr. Aquino on 12/17/2021 with findings of the stercoral ulcer and large bowel of stool in the rectum consistent with fecaloma. She was recommended to take a stent laxatives as needed. She states she had not taken any over the weekend and she was traveling with her son. Since then she has been constipated and unable to have a bowel movement. This morning she had a very loose watery bowel movement with a very small stool with noted blood on her toilet tissue and in the toilet. No abdominal pain nausea or vomiting. CT of abdomen shows diverticulosis. She does take Eliquis for atrial fibrillation. Likely we are dealing with bleeding from stercoral ulcer, possible hemorrhoidal bleeding related to straining. Status: Acute Code(s): K62.5 - HEMORRHAGE OF ANUS AND RECTUM SNOMED Code(s): 81576565 (2) Constipation Narrative/Plan: Patient was given lactulose, fleets enema followed by a soapsuds enema today. She had good relief after her soapsuds enema with formed bowel movement. No rectal bleeding. Status: Acute Code(s): K59.00 - CONSTIPATION, UNSPECIFIED SNOMED Code(s): 16637097 (3) Atrial fibrillation Narrative/Plan: On qu, august resume Eliquis Status: Acute Code(s): I48.91 - UNSPECIFIED ATRIAL FIBRILLATION SNOMED Code(s): 63752850 (4) Fecal occult blood test positive Status: Acute Code(s): R19.5 - OTHER FECAL ABNORMALITIES SNOMED Code(s): 21745848 Plan: 1. Continue symptomatic and supportive care 2. Continue MiraLAX daily 3. Give soapsuds enema 4. Patient may have regular diet 5. Discussed with patient importance of taking laxatives daily to prevent constipation 6. Following soapsuds enema patient has good relief with her bowels she is c lear from gastroenterology for discharge Thank you for this consultation, we will sign off at this time as there will not be any further loss prevention analyst available in house. Dr. Kelle Aquino I agree with the dictator's note, documented as a scribe by Tiffani Moon.
--- NOTE | 2022-02-13 12:56 | P.DS ---
Providers Date of admission: 02/12/22 01:07 Expected date of discharge: 02/13/22 Attending physician: Elsa Joshi MD Consults: 02/12/22 01:07 Consult Physician Routine Consulting Provider: Maureen Aquino Consult Reason/Comments: gi bleed Do you want consulting provider notified?: Yes, Notify in am Primary care physician: Yasmany Patterson MD Hospital Course: Rectal bleeding Stercoral ulcer Paroxysmal atrial fibrillation 81 year old female with afib on eliquis presented for evaluation due to 1 day history of recurrent bleeding per rectum. In the ED blood work was overall unremarkable , hemoglobin within normal limits. Occult blood test in the stool was positive. Abdomen/pelvis CT demonstrated findings of colonic diverticulosis without diverticulitis. Patient was admitted to the hospital for further evaluation, seen in consultation by GI who I previously seen her for similar issue back in October. At her previous evaluation, she was noted to have a stercoral ulcer due to constipation. She was admitted to observation with bowel regimen, and by following day had passed soft stool and felt back to her normal. Therefore, she was discharged with instructions to follow-up with ECP in gastroenterology. I try to see the patient several times in the day of discharge, however, she was unavailable due to being in the bathroom passing soft stools. Gastroenterology team was able to see the patient on day of discharge and recommended the patient was stable to be sent home with follow-up. Physical exam was not completed on the day of discharge due to patient being unavailable during several attempts to visit Patient Condition at Discharge: Good Plan - Discharge Summary New Discharge Prescriptions: New Pantoprazole [Protonix] 40 mg PO AC-BID #60 tab Sennosides-Docusate Sodium [Senokot-S] 1 tab PO BID #60 tablet Continue Aspirin 81 mg PO W/LUNCH lisinopriL 40 mg PO W/BRKFST Levothyroxine Sodium [Synthroid] 75 mcg PO W/BRKFST Cholecalciferol [Vitamin D3 (25 Mcg = 1000 Iu)] 25 mcg PO Q48H Calcium Carbonate [Calcium] 600 mg PO AC-BID@0900,1200 Glimepiride [Amaryl] 1 mg PO W/BRKFST Apixaban [Eliquis] 5 mg PO BID #60 tab Spironolactone [Aldactone] 25 mg PO W/BRKFST amLODIPine [Norvasc] 2.5 mg PO W/BRKFST Atorvastatin [Lipitor] 10 mg PO HS polyethylene glycoL 3350 [Miralax] 17 gm PO DAILY packet Oxybutynin Chloride 5 mg PO HS levETIRAcetam [Keppra] 500 mg PO Q12H Discharge Medication List Aspirin 81 mg PO W/LUNCH 01/12/14 [History] Levothyroxine Sodium [Synthroid] 75 mcg PO W/BRKFST 01/12/14 [History] lisinopriL 40 mg PO W/BRKFST 01/12/14 [History] Calcium Carbonate [Calcium] 600 mg PO AC-BID@0900,1200 11/07/21 [History] Cholecalciferol [Vitamin D3 (25 Mcg = 1000 Iu)] 25 mcg PO Q48H 11/07/21 [History] Glimepiride [Amaryl] 1 mg PO W/BRKFST 11/07/21 [History] Apixaban [Eliquis] 5 mg PO BID #60 tab 11/10/21 [Rx] Atorvastatin [Lipitor] 10 mg PO HS 12/16/21 [History] Spironolactone [Aldactone] 25 mg PO W/BRKFST 12/16/21 [History] amLODIPine [Norvasc] 2.5 mg PO W/BRKFST 12/16/21 [History] levETIRAcetam [Keppra] 500 mg PO Q12H 12/16/21 [History] polyethylene glycoL 3350 [Miralax] 17 gm PO DAILY packet 12/17/21 [Rx] Oxybutynin Chloride 5 mg PO HS 02/12/22 [History] Pantoprazole [Protonix] 40 mg PO AC-BID #60 tab 02/13/22 [Rx] Sennosides-Docusate Sodium [Senokot-S] 1 tab PO BID #60 tablet 02/13/22 [Rx] Follow up Appointment(s)/Referral(s): Yasmany Patterson MD [Primary Care Provider] - 1-2 days Patient Instructions/Handouts: Constipation (DC), Hemoccult Test (GEN) Discharge Disposition: HOME SELF-CARE
== END 2022-02-13 11:42 | disposition home or self-care (01) ==
LOC: EC 18:48 → 6NMEDSUR 02-12 01:07
PROVIDERS: ADMIT Internal Medicine; ATTEND Internal Medicine
DX: K57.31 Diverticulosis of large intestine without perforation or abscess with bleeding (principal); K63.3 Ulcer of intestine; K58.1 Irritable bowel syndrome with constipation; I48.0 Paroxysmal atrial fibrillation; E11.9 Type 2 diabetes mellitus without complications; E03.9 Hypothyroidism, unspecified; I10 Essential (primary) hypertension; E78.5 Hyperlipidemia, unspecified; Z85.828 Personal history of other malignant neoplasm of skin; Z86.73 Personal history of transient ischemic attack (TIA), and cerebral infarction without residual deficits; Z79.01 Long term (current) use of anticoagulants; Z79.82 Long term (current) use of aspirin; Z79.890 Hormone replacement therapy; Z79.899 Other long term (current) drug therapy; Z79.84 Long term (current) use of oral hypoglycemic drugs; Z88.1 Allergy status to other antibiotic agents
CPT/HCPCS: 96374; 99285; 36415; 93005; 86900; 86901; 80053; 80048 ×2; 83605; 83735; 85025 ×3; 85610; 85730; 86850; 82272; 74177; G0378 ×2; C9113

== ENCOUNTER → 2022-03-02 | Outpatient (CLI) | payer MEDICARE ==
--- NOTE | 2022-03-02 16:17 | MR ---
EXAMINATION TYPE: MR brain wo con DATE OF EXAM: 03/02/2022 COMPARISON: Prior MRI brain November 08, 2021 HISTORY: Stroke, seizure like activity, gait disorder, hearing loss right ear TECHNIQUE: Multiplanar, multisequence imaging of the brain and brainstem is performed without IV cont rast. FINDINGS: Diffusion weighted images demonstrate no evidence of a recent infarct or other diffusion abnormality. There is mild to moderate ventricular and sulcal prominence redemonstrated. There is occasional tiny focus of T2 hyperintensity seen better throughout the white matter bilaterally are current study vers us prior study. No suspicious intraparenchymal blood product on T2 Star weighted images. Hippocampal gyri appear symmetric and felt within normal limits. Midline structures redemonstrate empty sella morphology. The craniocervical junction remains within normal limits. Normal vascular flow voids are present. [id number]-rv-[id number] mucosal thickening left max illary sinus has similar appearance to prior study. Globes are intact bilaterally. These. NaSal septu m slightly deviated to right of midline similar to prior. No suspicious opacification of the mastoid air cells bilaterally. Vestibulocochlear complexes appear symmetric. IMPRESSION: Mild to moderate diffuse cerebral atrophy greatest over the high frontal and parietal lob es redemonstrated with minimal chronic small vessel ischemic change. Left-sided chronic maxillary sin us disease redemonstrated. No significant change from recent CT.
== END | disposition home or self-care (01) ==
LOC: RADMRIMAIN 13:36
PROVIDERS: ATTEND Psychiatry & Neurology Neurology
DX: I67.82 Cerebral ischemia (principal); G31.9 Degenerative disease of nervous system, unspecified; Z86.73 Personal history of transient ischemic attack (TIA), and cerebral infarction without residual deficits
CPT/HCPCS: 70551

== ENCOUNTER → 2022-04-09 | Outpatient (CLI) | payer MEDICARE ==
[2022-04-09 19:28] LABS: Basophils # (A) 0.03 X 10*3/uL (0.00-0.10); Basophils % (A) 0.6 %; Eosinophils # (A) 0.09 X 10*3/uL (0.04-0.35); Eosinophils % (A) 1.7 %; HCT 37.8 % (37.2-46.3); HGB 12.7 g/dL (12.0-15.0); Immature Grans, Automated 0.4 %; Lymphocytes # (A) 1.47 X 10*3/uL (0.90-5.00); Lymphocytes % (A) 28.1 %; MCH 30.2 pg (27.0-32.0); MCHC 33.6 g/dL (32.0-37.0); MCV 89.8 fL (80.0-97.0); Mean Platelet Volume 9.7 fL (9.5-12.2); Monocytes # (A) 0.23 X 10*3/uL (0.20-1.00); Monocytes % (A) 4.4 %; NRBC Per 100 WBC 0 /100 WBCS (0.0-0.0); Neutrophils # (A) 3.39 X 10*3/uL (1.80-7.70); Neutrophils % (A) 64.8 %; Platelet Count 185 X 10*3/uL (140-440); RBC 4.21 X 10*6/uL (4.10-5.20); RDW 14.1 % (11.5-14.5); WBC 5.23 X 10*3/uL (4.50-10.00)
[2022-04-09 20:32] LABS: % Iron Saturation 16.47 (12.00-45.00); African American GFR (CKD) 61.2 (60.0-200.0); Albumin 4.1 g/dL (3.8-4.9); Albumin/Globulin Ratio 1.95 (1.60-3.17); Anion Gap 14.7 mmol/L (10.00-18.00); BUN/Creat Ratio 21.5 Ratio (12.00-20.00); Blood Urea Nitrogen 21.5 mg/dL (9.0-27.0); Calcium 9.3 mg/dL (8.7-10.3); Carbon Dioxide 21.3 mmol/L (20.0-27.5); Globulin 2.1 g/dL (1.6-3.3); Magnesium 1.7 mg/dL (1.5-2.4); Non-African American GFR(CKD) 52.8 (60.0-200.0); Potassium 4.5 mmol/L (3.5-5.5); T4, Free (Free Thyroxine) 1.25 ng/dL (0.800-1.800); Total Bilirubin 0.4 mg/dL (0.30-1.20); Total Protein 6.2 g/dL (6.2-8.2)
== END | disposition home or self-care (01) ==
LOC: LABWHC1 12:31
PROVIDERS: ATTEND Internal Medicine
DX: I10 Essential (primary) hypertension (principal); E03.9 Hypothyroidism, unspecified; E83.42 Hypomagnesemia
CPT/HCPCS: 36415; 80053; 82607; 82746; 83540; 83550; 83735; 84439; 84443; 85025

== ENCOUNTER → 2022-08-25 | Day surgery (SDC) | payer MEDICARE ==
[~2022-08-25] MED LIST: APIXABAN 5 MG TAB PO SCH; ASPIRIN 81 MG PO SCH; ATORVASTATIN 10 MG TAB PO SCH; CHOLECALCIFEROL 25 MCG (1000 IU) TABLET PO SCH; GLIMEPIRIDE 1 MG TAB PO SCH; IV FLUID CONTINUATION 500 ML IV ONE; LEVOTHYROXINE 75 MCG TAB PO SCH; MIDAZOLAM 2 MG/2 ML VIAL IV ONE; NON FORMULARY DRUG (Calcium Carbonate [Calcium] 600 MG Tablet) PO SCH; NON FORMULARY DRUG (Cyanocobalamin (Vitamin B-12) [Vitamin B-12] 1,000 MCG Tablet) PO SCH; NON FORMULARY DRUG (Lisinopril [Lisinopril] 40 MG Tablet) PO SCH; OXYBUTYNIN 10 MG TAB.ER.24 PO SCH; SODIUM CHLORIDE 0.9% 1,000 ML IV SCH; SPIRONOLACTONE 25 MG TAB PO SCH; amLODIPine 5 MG TAB PO SCH; fentaNYL (PF) 50 MCG/ML 2 ML AMP IV ONE; fentaNYL (PF) 50 MCG/ML 2 ML AMP ONE; polyethylene glycoL 3350 17 GM POWD.PACK PO SCH
[2022-08-25 10:04] VITALS: TEMP 98
[2022-08-25 10:20] LABS: Glucose,Whole Blood 140 mg/dL (70-110)
[2022-08-25] MEDS: BENZOCAINE SPRAY 1 CAN MUCOUS MEM ONE ×2 (10:34→10:36)
--- NOTE | 2022-08-25 10:54 | P.PCN ---
Date of Procedure: 08/25/22 Description of Procedure: Indication: Evaluation of left atrial appendage closure device Procedure Description: After explaining the procedure to the patient, it's risk and complications, blood pressure, heart rate and O2 saturation were monitored. The throat was sprayed with Cetacaine. Patient received 2 mg intravenous Versed, 50 mcg intravenous fentanyl. The probe was introduced into the esophagus without difficulty. Images were obtained. Following that, the probe was removed. There was no immediate complication. Findings: Left atrial size is mildly dilated, closure device is noted in the left atrial appendage, well positioned. Left ventricle size and systolic function are normal. The aortic valve revealed mild fibrocalcific changes of the aortic cusps with preserved opening. Mild thickening of the mitral valve leaflets was noted. Tricuspid valve appears to be normal. Descending thoracic aorta revealed mild atherosclerotic changes. No pericardial effusion was noted. Contrast bubble study revealed no shunting across the intra-atrial septum with Valsalva maneuver. Doppler: Pulse wave and color Doppler were obtained, an revealed no evidence of flow across the left atrial appendage closure device. Mild mitral and tricuspid regurgitation was noted. No shunting across the intra-atrial septum was noted. Conclusion: 1. Normal appearance of the left atrial appendage closure device with no flow 2. Normal left ventricular size and systolic function 3. Mild mitral and tricuspid regurgitation 4. No shunting across the intra-atrial septum 5. No pericardial effusion Sedation time: 15 minutes
[2022-08-25 11:14] VITALS: RESP 16
[2022-08-25 12:17] VITALS: PULSE 60
[2022-08-25 12:18] VITALS: BP 134/60
== END | disposition home or self-care (01) ==
LOC: CATHCVL 09:15
PROVIDERS: ATTEND Internal Medicine Interventional Cardiology
DX: I08.1 Rheumatic disorders of both mitral and tricuspid valves (principal); Z88.8 Allergy status to other drugs, medicaments and biological substances
CPT/HCPCS: 93312; 93320; 93325; J2250; J3010

== ENCOUNTER → 2022-09-17 | Outpatient (CLI) | payer MEDICARE ==
--- NOTE | 2022-09-17 14:47 | MM ---
Reason for Exam: Clinical finding. Last mammogram was performed 9 year(s) and 2 month(s) ago. Indicated Problems: Lump or thickening of the left side (size 5) for 1 Week(s). Patient History: Menarche at age 13. First Full-Term at age 24. Postmenopausal. Patient has history of breast feeding. 1986, Benign Excisional Biopsy on the right side. Risk Values: Yvette 5 year model risk: 1.7%. NCI Lifetime model risk: 2.2%. Prior Study Comparison: 07/07/2011 Bilateral Screening Mammogram, [facility]. 07/18/2013 Bilateral Screening Mammogram, [facility]. Tissue Density: There are scattered fibroglandular densities. Findings: Analyzed By CAD. Postexcisional changes redemonstrated on the right with a centrally located a little thickened. Palpable marker placed by the left axilla. Some benign-appearing underlying axillary lymph nodes are noted. There is a new small group of heterogeneous microcalcifications 6:00 central left breast for which six-month follow-up is recommended. Overall Assessment: Incomplete: need additional imaging evaluation, BI-RAD 0 Management: Diagnostic Breast Ultrasound of the left breast. Electronically signed and approved by: Ady Wagner M.D. Radiologist
--- NOTE | 2022-09-17 15:16 | USB ---
Reason for Exam: Clinical finding. Patient History: Menarche at age 13. First Full-Term at age 24. Postmenopausal. Patient has history of breast feeding. 1987, Benign Excisional Biopsy on the right side. Risk Values: Yvette 5 year model risk: 1.7%. NCI Lifetime model risk: 2.2%. Technique: Method: Targeted. Prior Study Comparison: 07/30/2009 Screening Mammogram, [facility]. 07/07/2011 Bilateral Screening Mammogram, [facility]. 07/18/2013 Bilateral Screening Mammogram, [facility]. Findings: The upper outer quadrant of the left breast, the axilla of the left breast and the retroareolar of the left breast were scanned. Targeted ultrasound left breast 12:00 to 2:00 position including the subareolar region and axilla. Scanning was extended to the palpable left infraclavicular region. There is no solid or cystic lesion or axillary lymphadenopathy. Patient reports pain along the palpable infraclavicular site. Overall Assessment: Probably benign, BI-RAD 3 Management: Diagnostic Mammogram of the left breast in 6 months. For the small grouped microcalcifications. Further clinical management of any suspicious palpable abnormalities and for the patient's infraclavicular left breast pain. Patient should continue monthly self breast exams. Results were given to the patient verbally at the time of exam. Electronically signed and approved by: Ady Wagner M.D. Radiologist
== END | disposition home or self-care (01) ==
LOC: RADMAMWWP 13:39
PROVIDERS: ATTEND Internal Medicine
DX: N63.22 Unspecified lump in the left breast, upper inner quadrant (principal); Z78.0 Asymptomatic menopausal state
CPT/HCPCS: 77066; 76642; G0279; 77062

== ENCOUNTER → 2022-09-30 | Outpatient (CLI) | payer MEDICARE ==
--- NOTE | 2022-09-30 13:04 | US ---
EXAMINATION TYPE: US kidneys/renal and bladder DATE OF EXAM: 09/30/2022 COMPARISON: CT 2021 CLINICAL INDICATION: Female, 82 years old with history of N18.31 CHRONIC KIDNEY DISEASE, STAGE 3A; EXAM MEASUREMENTS: Right Kidney: 9.2 x 5.0 x 5.2 cm Left Kidney: 9.2 x 4.8 x 5.6 cm Right Kidney: cortical thinning, 1.5cm exophytic hypoechoic area mid pole Left Kidney: cortical thinning, 1.2cm hypoechoic area inferior pole, 0.4cm echogenic focus inferior p ole Bladder: wnl Bilateral Jets seen: no There is no evidence for hydronephrosis at this point in time. Nonobstructive left inferior pole 0.4 cm conquest corresponding to CT. Cortical thinning with preservation of the bilateral corticomedullar y junctions demonstrated. Exophytic 1.5 cm mid pole appearing cyst. Prominent left inferior pole lesvia l sinus cysts. The urinary bladder is anechoic and underdistended. IMPRESSION: 1. No hydronephrosis. 2. Nonobstructive left renal calculus. 3. Findings suggestive of bilateral medical renal disease.
== END | disposition home or self-care (01) ==
LOC: RADUSWWP 12:21
PROVIDERS: ATTEND Internal Medicine
DX: N18.31 Chronic kidney disease, stage 3a (principal); N20.0 Calculus of kidney
CPT/HCPCS: 76770

== ENCOUNTER → 2023-01-06 | Outpatient (CLI) | payer MEDICARE ==
--- NOTE | 2023-01-06 10:54 | XR ---
EXAMINATION TYPE: XR foot complete RT DATE OF EXAM: 01/06/2023 COMPARISON: NONE HISTORY: Pain TECHNIQUE: Three views are submitted. FINDINGS: The osseous structures are intact. There is no acute fracture or dislocation. Mild to moderate hyp ertrophic arthropathy first MTP with adjacent soft tissue edema. No erosive changes. Large calcaneal spurs. Hammertoe deformities. No destructive change of the fifth digit. Mild MTP join t arthropathy. Hypertrophic spurring base fifth metatarsal. IMPRESSION: 1. Soft tissue edema adjacent to the first and fifth MTPs with mild to moderate arthropathy first MTP . No erosive changes. Would be compatible of osteoarthritis or gout. Mild MTP joint arthropathy fifth digit with no erosive changes.
== END | disposition home or self-care (01) ==
LOC: RADXRMAIN 09:56
PROVIDERS: ATTEND Internal Medicine
DX: M12.871 Other specific arthropathies, not elsewhere classified, right ankle and foot (principal); M10.9 Gout, unspecified; R60.0 Localized edema

== ENCOUNTER → 2023-02-04 | Outpatient (CLI) | payer MEDICARE ==
--- NOTE | 2023-02-04 16:07 | XR ---
EXAMINATION TYPE: XR hand complete RT, XR finger RT DATE OF EXAM: 02/04/2023 CLINICAL HISTORY: pain TECHNIQUE: Frontal, lateral and oblique images of the right hand are obtained. 3 views of the right thumb were also submitted. COMPARISON: None. FINDINGS: There is no acute fracture/dislocation evident. The joint spaces appear within normal limi ts. The overlying soft tissue appears unremarkable. IMPRESSION: There is no acute fracture or dislocation ICD 10 NO FRACTURE, INITIAL EVALUATION
[2023-02-05 02:09] LABS: Basophils # (A) 0.05 X 10*3/uL (0.00-0.10); Basophils % (A) 0.9 %; Eosinophils # (A) 0.23 X 10*3/uL (0.04-0.35); Eosinophils % (A) 4.3 %; HCT 42.9 % (37.2-46.3); HGB 13.3 d/dL (12.0-15.0); Lymphocytes % (A) 31.9 %; MCH 29.3 pg (27.0-32.0); MCV 94.5 FL (80.0-97.0); Mean Platelet Volume 10.7 FL (9.5-12.2); Monocytes # (A) 0.34 X 10*3/uL (0.20-1.00); Monocytes % (A) 6.4 %; NRBC Per 100 WBC 0 X 10*3/uL (0.00-0.01); Neutrophils % (A) 56.3 %; Platelet Count 206 X 10*3/uL (140-440); RBC 4.54 X 10*6/uL (4.10-5.20); RDW 14.2 % (11.5-14.5); WBC 5.33 X 10*3/uL (4.50-10.00)
[2023-02-05 02:38] LABS: % Iron Saturation 23.74 (12.00-45.00); ALT 26 U/L (8-44); AST 22 U/L (13-35); Albumin 4.2 d/dL (3.8-4.9); Alkaline Phosphatase 59 U/L (41-126); Blood Urea Nitrogen 16.5 mg/dL (9.0-27.0); Calcium 9.3 mg/dL (8.7-10.3); Chloride 101 mmol/L (96-109); Glucose 93 mg/dL (70-110); Iron 80 UG/DL (50-170); Magnesium 1.7 mg/dL (1.5-2.4); Potassium 4.2 mmol/L (3.5-5.5); Sodium 137 mmol/L (135-145); Total Bilirubin 0.5 mg/dL (0.3-1.2); Total Iron Binding Capacity 337 UG/DL (228-460); Total Protein 6.2 d/dL (6.2-8.2); Uric Acid 5.9 mg/dL (2.9-7.7)
[2023-02-05 02:39] LABS: Ferritin 44.2 ng/mL (10.0-291.0); T4, Free (Free Thyroxine) 1.41 ng/dL (0.80-1.80)
[2023-02-05 03:22] LABS: Albumin 4.3 d/dL (3.8-4.9); Protein, Total 6.4 d/dL (6.2-8.2)
[2023-02-05 04:25] LABS: INR 0.98 sec (0.93-1.11); Prothrombin Time 10.6 sec (9.9-11.9)
[2023-02-05 19:22] LABS: Gamma Globulin 0.73 d/dL (0.70-1.50)
== END | disposition home or self-care (01) ==
LOC: RADXRMAIN 15:24
PROVIDERS: ATTEND Internal Medicine
DX: M79.641 Pain in right hand (principal); M77.8 Other enthesopathies, not elsewhere classified; H11.32 Conjunctival hemorrhage, left eye; E83.42 Hypomagnesemia; E03.9 Hypothyroidism, unspecified; I48.91 Unspecified atrial fibrillation; N18.31 Chronic kidney disease, stage 3a; M10.9 Gout, unspecified
CPT/HCPCS: 80053; 82607; 82728; 82746; 83540; 83550; 83735; 84165; 84439; 84443; 84550; 85025; 85610

== ENCOUNTER → 2023-03-04 | Outpatient (CLI) | payer MEDICARE ==
--- NOTE | 2023-03-04 13:51 | US ---
EXAMINATION TYPE: US arterial LE single level DATE OF EXAM: 03/04/2023 1:28 PM CLINICAL INDICATION: Female, 82 years old with history of I87.8 OTHER SPECIFIED DISORDERS OF VEINS; P t states right foot discoloration and cold to touch x 6 months History of: Smoker: No Hypertension: Yes Diabetic: Yes Hyperlipidemia: Yes TIA/CVA: Yes Previous Vascular Surgery: No CAD: No LA: No Vascular Ulcers: No Claudication: No Gangrene: No Doppler Waveforms: Right: Multiphasic Left: Multiphasic Right Brachial Pressure: 185 Left Brachial Pressure: 179 Ankle-Brachial Indices: Right: 1.1 Left: 1.1 Toe Brachial Indices: Right: 0.4 Left: 0.4 IMPRESSION: Normal ankle-brachial indices bilaterally.
== END | disposition home or self-care (01) ==
LOC: RADUSWWP 12:55
PROVIDERS: ATTEND Internal Medicine
DX: I87.8 Other specified disorders of veins (principal)
CPT/HCPCS: 93922

== ENCOUNTER → 2023-04-30 | Outpatient (CLI) | payer MEDICARE ==
--- NOTE | 2023-04-30 10:55 | MM ---
Reason for Exam: Follow-up at short interval from prior study. Last screening mammogram was performed 8 month(s) ago. Patient History: Menarche at age 13. First Full-Term at age 24. Postmenopausal. Patient has history of breast feeding. 1986, Benign Excisional Biopsy on the right side. Risk Values: Yvette 5 year model risk: 1.6%. NCI Lifetime model risk: 2.0%. Prior Study Comparison: 07/07/2011 Bilateral Screening Mammogram, [facility]. 07/18/2013 Bilateral Screening Mammogram, [facility]. 09/17/2022 Bilateral MG 3D diag mammo w/cad JAVON, [facility]. Tissue Density: Left: There are scattered fibroglandular densities. Findings: Analyzed By CAD. Pattern appears stable. The punctate calcifications within the 6:00 posterior position right breast appear stable. No new calcifications are evident. No suspicious groups of microcalcifications, spiculated or lobular masses, architectural distortion or other secondary signs of malignancy are mammographically apparent. Overall Assessment: Benign, BI-RAD 2 Management: Screening Mammogram of both breasts in 6 months. A negative mammogram report should not preclude additional follow up of suspicious palpable abnormalities. Patient should continue monthly self breast exam. A clinical breast exam by your physician is recommended on an annual basis and results should be correlated with mammographic findings. Electronically signed and approved by: Long Ledbetter D.O. Radiologis
== END | disposition home or self-care (01) ==
LOC: RADMAMWWP 09:51
PROVIDERS: ATTEND Internal Medicine
DX: R92.322 Mammographic fibroglandular density, left breast (principal); Z78.0 Asymptomatic menopausal state
CPT/HCPCS: 77065; G0279; 77061

== ENCOUNTER → 2023-11-13 | Outpatient (CLI) | payer MEDICARE ==
--- NOTE | 2023-11-13 16:13 | MR ---
EXAMINATION TYPE: MR brain and iac wo/w con DATE OF EXAM: 11/13/2023 3:22 PM CLINICAL INDICATION:Female, 83 years old with history of H90.A31 MIX CNDCT/SNRL HEAR LOSS,UNI,R EAR W RSTRC; PHH, Right sided hearing loss, dizziness. COMPARISON: 03/02/2022 TECHNIQUE: Multi planar, multi sequence imaging was performed through the brain. Specialized thin s equences were obtained through the internal auditory canals. Pre-and post gadolinium sequences were obtained. MR contrast: IV Contrast: 9 cc Gadavist FINDINGS: Cerebral atrophy changes unchanged from prior. The judd-white junctions, ventricular system, and cisterns appear unremarkable. Midline structures s how no abnormality. Diffusion-weighted imaging shows no evidence of restricted diffusion. The suscept ibility weighted images do not reveal any evidence for micro-hemorrhage. The bone marrow signal is within normal limits. Paranasal sinuses and mastoid air cells: Mild scattered paranasal sinus disease. Visualized orbits: Bilateral aphakia After administration of gadolinium, no abnormal enhancement is seen. The internal auditory canal sequences demonstrate no significant irregularity. The 7th cranial nerve s, 8 cranial nerves, and cerebellar pontine angles appear unremarkable. After the administration elizabeth olinium, no abnormal enhancement is seen within the internal auditory canals. Vascular loop: None. IMPRESSION: 1. No evidence of intracranial mass nor acute/subacute CVA. 2. No evidence of internal auditory canal abnormality. 3. Mild paranasal sinus disease worse in the left maxillary sinus similar prior in 2021.
== END | disposition home or self-care (01) ==
LOC: RADMRIMAIN 13:57
PROVIDERS: ATTEND Otolaryngology
DX: H90.A31 Mixed conductive and sensorineural hearing loss, unilateral, right ear with restricted hearing on the contralateral side (principal); R42 Dizziness and giddiness
CPT/HCPCS: 70553; A9585

== ENCOUNTER 2023-12-24 11:58 | Observation (INO) | payer MEDICARE ==
--- NOTE | 2023-12-24 12:14 | ED ---
General Adult HPI - General Source: patient, family, RN notes reviewed Mode of arrival: wheelchair Limitations: no limitations <Farzad Choi - Last Filed: 12/24/23 12:13> - General Source: patient, family, RN notes reviewed, old records reviewed Mode of arrival: wheelchair Limitations: no limitations - History of Present Illness -: hour(s) Location: chest Severity scale (1-10): 5 Quality: burning, aching Consistency: intermittent Improves with: none Worsens with: none Associated Symptoms: confusion Treatments Prior to Arrival: none <Hesham Leroy - Last Filed: 01/01/24 02:16> - General Chief complaint: Arrhythmia/Palpitations Stated complaint: Indigestion, hypertension Time Seen by Provider: 12/24/23 12:13 - History of Present Illness Initial comments: Quick note: 83-year-old female presented to the ER with a chief complaint of chest discomfort. Patient has been having fluctuating blood pressures from systolic in the 80s to 150s the past couple days. She does take antihypertensive medications. She did take her medications this morning. She states today she started to experience a left-sided chest discomfort describing it as "indigestion". There was radiation to her back. Denies any shortness of breath, nausea, vomiting or diaphoresis during this episode. (Farzad Choi) This is an 83-year-old female to ER for chest discomfort increasing and decreasing blood pressures labile blood pressures as well as chest pain today. Family notes that patient has been altered and not acting appropriately and not responding appropriately to questioning (Hesham Leroy) - Related Data Home Medications Medication Instructions Recorded Confirmed Aspirin 81 mg PO DAILY 01/12/14 12/24/23 Levothyroxine Sodium [Synthroid] 75 mcg PO DAILY 01/12/14 12/24/23 lisinopriL 40 mg PO HS 01/12/14 12/24/23 Calcium Carbonate [Calcium] 1,200 mg PO W/LUNCH 11/07/21 12/24/23 Glimepiride [Amaryl] 1 mg PO DAILY 11/07/21 12/24/23 Spironolactone [Aldactone] 25 mg PO Q48H 12/16/21 12/24/23 Cyanocobalamin (Vitamin B-12) 1,000 mcg PO W/LUNCH 08/21/22 12/24/23 [Vitamin B-12] Atorvastatin [Lipitor] 20 mg PO HS 12/24/23 12/24/23 Cholecalciferol [Vitamin D3 (125 125 mcg PO W/LUNCH 12/24/23 12/24/23 Mcg = 5000 Iu)] oxyBUTYnin chloride [Ditropan] 5 mg PO BID 12/24/23 12/24/23 Allergies Allergy/AdvReac Type Severity Reaction Status Date / Time adhesive tape Allergy Rash/Hives Verified 12/24/23 13:51 lactic acid [From AmLactin] Allergy Rash/Hives Verified 12/24/23 13:51 potassium lactate Allergy Rash/Hives Verified 12/24/23 13:51 [From AmLactin] sodium lactate Allergy Rash/Hives Verified 12/24/23 13:51 [From AmLactin] cephalexin [From Keflex] AdvReac Nausea & Verified 12/24/23 13:51 Vomiting fenofibrate nanocrystallized AdvReac irregular Verified 12/24/23 13:51 [From Tricor] heart rate fenofibrate,micronized AdvReac irregular Verified 12/24/23 13:51 [From Tricor] heart rate moxifloxacin [From Vigamox] AdvReac Nausea & Verified 12/24/23 13:51 Vomiting Review of Systems ROS Other: All systems not noted in ROS Statement are negative. <Farzad Choi - Last Filed: 12/24/23 12:13> ROS Other: All systems not noted in ROS Statement are negative. <Hesham Leroy - Last Filed: 01/01/24 02:16> ROS Statement: Those systems with pertinent positive or pertinent negative responses have been documented in the HPI. 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 seizure @that time, residual balance problem, uses walker, took keppra short period of time but no longer on, urinary frequency History of Any Multi-Drug Resistant Organisms: None Reported Past Surgical History: Appendectomy, Cholecystectomy Additional Past Surgical History / Comment(s): cataracts, partial thyroidectomy , Watchman implanted @[facility] 07-13-22 Past Anesthesia/Blood Transfusion Reactions: Motion Sickness Additional Past Anesthesia/Blood Transfusion Reaction / Comment(s): slow to wake up from anesthesia Past Psychological History: No Psychological Hx Reported Smoking Status: Never smoker - Past Family History Father Family Medical History: Myocardial Infarction ([place]) Mother Family Medical History: COPD Additional Family Medical History / Comment(s): Alzheimer's <Farzad Choi - Last Filed: 12/24/23 12:13> General Exam Limitations: no limitations <Farzad Choi - Last Filed: 12/24/23 12:13> General appearance: alert, in no apparent distress, anxious Head exam: Present: atraumatic, normocephalic, normal inspection Eye exam: Present: normal appearance, PERRL, EOMI. Absent: scleral icterus, conjunctival injection, periorbital swelling ENT exam: Present: normal exam, mucous membranes moist Neck exam: Present: normal inspection. Absent: tenderness, meningismus, lymphadenopathy Respiratory exam: Present: normal lung sounds bilaterally. Absent: respiratory distress, wheezes, rales, rhonchi, stridor Cardiovascular Exam: Present: regular rate, normal rhythm, normal heart sounds. Absent: systolic murmur, diastolic murmur, rubs, gallop, clicks GI/Abdominal exam: Present: soft, normal bowel sounds. Absent: distended, tenderness, guarding, rebound, rigid Extremities exam: Present: normal inspection, full ROM, normal capillary refill. Absent: tenderness, pedal edema, joint swelling, calf tenderness Back exam: Present: normal inspection Neurological exam: Present: alert, oriented X3, CN II-XII intact Psychiatric exam: Present: normal affect, normal mood Skin exam: Present: warm, dry, intact, normal color. Absent: rash <Hesham Leroy - Last Filed: 01/01/24 02:16> - General Exam Comments Initial Comments: Visual Physical Exam Vital signs reviewed General: Well-appearing, nontoxic, no acute distress. Head: Normocephalic, atraumatic Eyes: PERRLA, EOMI ENT: Airway patent Chest: Nonlabored breathing Skin: No visual rash, normal skin tone Neuro: Alert and oriented 3 Musculoskeletal: No gross abnormalities (Farzad Choi) Course <Hesham Leroy - Last Filed: 01/01/24 02:16> Vital Signs 12/24/23 12/24/23 12/24/23 12:02 12:25 13:15 Temperature 97.5 F L Pulse Rate 72 64 Respiratory 16 18 Rate Blood Pressure 177/93 198/78 181/76 Blood Pressure [Right Arm] O2 Sat by Pulse 97 96 Oximetry 12/24/23 12/24/23 12/24/23 13:45 14:00 14:15 Temperature Pulse Rate 62 68 69 Respiratory 16 18 18 Rate Blood Pressure 178/76 186/73 180/84 Blood Pressure [Right Arm] O2 Sat by Pulse 96 98 97 Oximetry 12/24/23 12/24/23 12/24/23 15:30 17:00 18:00 Temperature 98.3 F Pulse Rate 69 68 77 Respiratory 18 18 18 Rate Blood Pressure 185/91 155/71 164/82 Blood Pressure [Right Arm] O2 Sat by Pulse 94 L 95 95 Oximetry 12/24/23 12/25/23 12/25/23 23:09 01:06 06:00 Temperature Pulse Rate 64 74 62 Respiratory 18 18 16 Rate Blood Pressure 154/68 137/86 156/73 Blood Pressure [Right Arm] O2 Sat by Pulse 94 L 95 Oximetry 12/25/23 12/25/23 12/25/23 11:30 12:28 13:49 Temperature Pulse Rate 60 64 Respiratory 16 17 18 Rate Blood Pressure 161/71 162/76 Blood Pressure 144/83 [Right Arm] O2 Sat by Pulse 95 96 96 Oximetry - Reevaluation(s) Reevaluation #1: 12/24/23 14:49 Medical records reviewed (Hesham Leroy) Reevaluation #2: 12/24/23 14:49 Patient symptoms improved (Hesham Leroy) Reevaluation #3: 12/24/23 14:49 Patient informed of results and questions answered (Hesham Leroy) Reevaluation #4: Was pt. sent in by a medical professional or institution (, PA, NEEDLE MOLDER, urgent care, hospital, or custodial...) When possible be specific @ -no Did you speak to anyone other than the patient for history (EMS, parent, family, police, friend...)? What history was obtained from this source @ -no Did you review nursing and triage notes (agree or disagree)? Why? @ -agree Are old charts reviewed (outside hosp., previous admission, EMS record, old EKG, old radiological studies, urgent care reports/EKG's, custodial records)? Report findings @ -yes Differential Diagnosis (chest pain, altered mental status, abdominal pain women, abdominal pain men, vaginal bleeding, weakness, fever, dyspnea, syncope, headache, dizziness, GI bleed, back pain, seizure, CVA, palpatations, mental health, musculoskeletal)? @ -prior EKG interpreted by me (3pts min.). @ -yes X-rays interpreted by me (1pt min.). @ -yes negative for acute disease CT interpreted by me (1pt min.). @ -Yes negative for acute disease U/S interpreted by me (1pt. min.). @ -no What testing was considered but not performed or refused? (CT, X-rays, U/S, labs)? Why? @ -none What meds were considered but not given or refused? Why? @ -none Did you discuss the management of the patient with other professionals (professionals i.e. , PA, NEEDLE MOLDER, lab, RT, psych nurse, social media senior associate, machine spring former, teacher, correction officer reformatory, major case detective)? Give summary @ -no Was smoking cessation discussed for >3mins.? @ -no Was critical care preformed (if so, how long)? @ -no Were there social determinants of health that impacted care today? How? (Homelessness, low income, unemployed, alcoholism, drug addiction, transportation, low edu. Level, literacy, decrease access to med. care, snf, rehab)? @ -none Was there de-escalation of care discussed even if they declined (Discuss DNR or withdrawal of care, Hospice)? DNR status @ -no What co-morbidities impacted this encounter? (DM, HTN, Smoking, COPD, CAD, Cancer, CVA, ARF, Chemo, Hep., AIDS, mental health diagnosis, sleep apnea, morbid obesity)? @ -none Was patient admitted / discharged? Hospital course, mention meds given and route, prescriptions, significant lab abnormalities, going to OR and other pertinent info. @ - 83 female to ER for evaluation of some altered mental status as well as acute chest pain. Patient admitted for cardiac observation. Admitted Undiagnosed new problem with uncertain prognosis? @ -no Drug Therapy requiring intensive monitoring for toxicity (Heparin, Nitro, Insulin, Cardizem)? @ -no Were any procedures done? @ -no Diagnosis/symptom? @ -Chest pain altered mental status Acute, or Chronic, or Acute on Chronic? @ -Acute Uncomplicated (without systemic symptoms) or Complicated (systemic symptoms)? @ -Complicated Side effects of treatment? @ -no Exacerbation, Progression, or Severe Exacerbation? @ -exacerbation Poses a threat to life or bodily function? How? (Chest pain, [place], [place], pneumonia, PE, COPD, DKA, ARF, appy, cholecystitis, CVA, Diverticulitis, Homicidal, Suicidal, threat to staff... and all critical care pts) @ -yes extremes of age (Hesham Leroy) Reevaluation #5: Differential Chest Pain: Stable Angina, Unstable Angina, STEMI, NSTEMI Aortic Dissection, Pneumothorax, Musculoskeletal, Esophageal Spasm GERD, Cholecystitis, Pancreatitis, Zoster, this is not meant to be an all-inclusive list. Differential Altered Mental Status: Hypoglycemia, DKA, hypercapnia, ETOH, overdose, CO poisoning, trauma, myxedema coma, HTN encephalopathy, infection, encephalitis, psychosis, intercranial hemorrhage, hepatic encephalopathy, meningitis, CVA, this is not meant to be an all-inclusive list (Hesham Leroy) - Consultations Consultation #1: Spoke with sound who agrees to admit this patient (Hesham Leroy) EKG Findings - EKG Comments: EKG Findings:: EKG is sinus 65 NH 198 QRS 98 QTc 398 - EKG Results: EKG: interpreted by ERMD <Hesham Leroy - Last Filed: 01/01/24 02:16> Medical Decision Making <Farzad Choi - Last Filed: 12/24/23 12:13> - Lab Data Result diagrams: 12/25/23 06:52 12/25/23 06:52 - EKG Data -: EKG Interpreted by Me - Radiology Data Radiology results: report reviewed (X-rays negative for acute disease CT brain negative for acute disease), image reviewed <Hesham Leroy - Last Filed: 01/01/24 02:16> - Medical Decision Making I performed the quick note portion of this chart. Electronically signed by Farzad Choi PA-C (Farzad Choi) 83 female to ER for evaluation of some altered mental status as well as acute chest pain. Patient admitted for cardiac observation (Hesham Leroy) - Lab Data Lab Results 12/24/23 12/24/23 12/24/23 Range/Units 12:21 12:21 12:21 WBC 4.6 (3.8-10.6) k/uL RBC 4.19 (3.80-5.40) m/uL Hgb 12.5 (11.4-16.0) gm/dL Hct 37.0 (34.0-46.0) % MCV 88.4 (80.0-100.0) fL MCH 29.8 (25.0-35.0) pg MCHC 33.7 (31.0-37.0) g/dL RDW 14.1 (11.5-15.5) % Plt Count 189 (150-450) k/uL MPV 6.7 Neutrophils % 58 % Lymphocytes % 31 % Monocytes % 5 % Eosinophils % 3 % Basophils % 0 % Neutrophils # 2.7 (1.3-7.7) k/uL Lymphocytes # 1.4 (1.0-4.8) k/uL Monocytes # 0.2 (0-1.0) k/uL Eosinophils # 0.2 (0-0.7) k/uL Basophils # 0.0 (0-0.2) k/uL PT 9.9 L (10.0-12.5) sec INR 0.9 (<1.2) APTT 22.9 (22.0-30.0) sec Sodium 132 L (137-145) mmol/L Potassium 4.5 (3.5-5.1) mmol/L Chloride 100 (98-107) mmol/L Carbon Dioxide 24 (22-30) mmol/L Anion Gap 8 mmol/L BUN 19 H (7-17) mg/dL Creatinine 0.97 (0.52-1.04) mg/dL Est GFR (CKD-EPI)AfAm 63 (>60 ml/min/1.73 sqM) Est GFR (CKD-EPI)NonAf 54 (>60 ml/min/1.73 sqM) Glucose 118 H (74-99) mg/dL Calcium 9.6 (8.4-10.2) mg/dL Magnesium 1.5 L (1.6-2.3) mg/dL Total Bilirubin 0.8 (0.2-1.3) mg/dL AST 27 (14-36) U/L ALT 19 (4-34) U/L Alkaline Phosphatase 61 (38-126) U/L Troponin I (0.000-0.034) ng/mL Total Protein 6.2 L (6.3-8.2) g/dL Albumin 3.9 (3.5-5.0) g/dL Urine Color Urine Appearance (Clear) Urine pH (5.0-8.0) Ur Specific Cassel (1.001-1.035) Urine Protein (Negative) Urine Glucose (UA) (Negative) Urine Ketones (Negative) Urine Blood (Negative) Urine Nitrite (Negative) Urine Bilirubin (Negative) Urine Urobilinogen (<2.0) mg/dL Ur Leukocyte Esterase (Negative) 12/24/23 12/24/23 Range/Units 12:21 14:38 WBC (3.8-10.6) k/uL RBC (3.80-5.40) m/uL Hgb (11.4-16.0) gm/dL Hct (34.0-46.0) % MCV (80.0-100.0) fL MCH (25.0-35.0) pg MCHC (31.0-37.0) g/dL RDW (11.5-15.5) % Plt Count (150-450) k/uL MPV Neutrophils % % Lymphocytes % % Monocytes % % Eosinophils % % Basophils % % Neutrophils # (1.3-7.7) k/uL Lymphocytes # (1.0-4.8) k/uL Monocytes # (0-1.0) k/uL Eosinophils # (0-0.7) k/uL Basophils # (0-0.2) k/uL PT (10.0-12.5) sec INR (<1.2) APTT (22.0-30.0) sec Sodium (137-145) mmol/L Potassium (3.5-5.1) mmol/L Chloride (98-107) mmol/L Carbon Dioxide (22-30) mmol/L Anion Gap mmol/L BUN (7-17) mg/dL Creatinine (0.52-1.04) mg/dL Est GFR (CKD-EPI)AfAm (>60 ml/min/1.73 sqM) Est GFR (CKD-EPI)NonAf (>60 ml/min/1.73 sqM) Glucose (74-99) mg/dL Calcium (8.4-10.2) mg/dL Magnesium (1.6-2.3) mg/dL Total Bilirubin (0.2-1.3) mg/dL AST (14-36) U/L ALT (4-34) U/L Alkaline Phosphatase (38-126) U/L Troponin I <0.012 (0.000-0.034) ng/mL Total Protein (6.3-8.2) g/dL Albumin (3.5-5.0) g/dL Urine Color Colorless Urine Appearance Clear (Clear) Urine pH 6.5 (5.0-8.0) Ur Specific Cassel 1.006 (1.001-1.035) Urine Protein Negative (Negative) Urine Glucose (UA) Negative (Negative) Urine Ketones Negative (Negative) Urine Blood Negative (Negative) Urine Nitrite Negative (Negative) Urine Bilirubin Negative (Negative) Urine Urobilinogen <2.0 (<2.0) mg/dL Ur Leukocyte Esterase Negative (Negative) Disposition <Farzad Choi - Last Filed: 12/24/23 12:13> Is patient prescribed a controlled substance at d/c from ED?: No Time of Disposition: 15:00 <Hesham Leroy - Last Filed: 01/01/24 02:16> Clinical Impression: Weakness, Encephalopathy, Chest pain, AMS (altered mental status) Disposition: ADMITTED IP TO THIS HOSP Condition: Stable
[2023-12-24 12:46] LABS: Basophils % (A) 0 %; Eosinophils # (A) 0.2 k/uL (0-0.7); Eosinophils % (A) 3 %; HGB 12.5 gm/dL (11.4-16.0); Lymphocytes # (A) 1.4 k/uL (1.0-4.8); Lymphocytes % (A) 31 %; MCH 29.8 pg (25.0-35.0); MCHC 33.7 g/dL (31.0-37.0); MCV 88.4 fL (80.0-100.0); Mean Platelet Volume 6.7; Monocytes # (A) 0.2 k/uL (0-1.0); Monocytes % (A) 5 %; Neutrophils # (A) 2.7 k/uL (1.3-7.7); Neutrophils % (A) 58 %; Platelet Count 189 k/uL (150-450); RBC 4.19 m/uL (3.80-5.40); RDW 14.1 % (11.5-15.5); WBC 4.6 k/uL (3.8-10.6)
[2023-12-24 12:57] LABS: INR 0.9 (<1.2); Partial Thromboplastin Time 22.9 sec (22.0-30.0); Prothrombin Time 9.9 sec (10.0-12.5)
[2023-12-24 13:11] LABS: ALT 19 U/L (4-34); AST 27 U/L (14-36); African American GFR (CKD) 63 (>60 ml/min/1.73 sqM); Albumin 3.9 g/dL (3.5-5.0); Alkaline Phosphatase 61 U/L (38-126); Anion Gap 8 mmol/L; Blood Urea Nitrogen 19 mg/dL (7-17); Calcium 9.6 mg/dL (8.4-10.2); Carbon Dioxide 24 mmol/L (22-30); Chloride 100 mmol/L (98-107); Glucose 118 mg/dL (74-99); Magnesium 1.5 mg/dL (1.6-2.3); Non-African American GFR(CKD) 54 (>60 ml/min/1.73 sqM); Potassium 4.5 mmol/L (3.5-5.1); Sodium 132 mmol/L (137-145); Total Bilirubin 0.8 mg/dL (0.2-1.3); Total Protein 6.2 g/dL (6.3-8.2)
--- NOTE | 2023-12-24 13:36 | XR ---
EXAMINATION TYPE: XR chest 2V DATE OF EXAM: 12/24/2023 12:53 PM CLINICAL INDICATION: Female, 83 years old with history of dysrhythmia; COMPARISON: 02/11/2022, 11/07/2021 TECHNIQUE: XR chest 2V Frontal view of the chest. FINDINGS: Lungs/Pleura: There is no evidence of pleural effusion, focal consolidation, or pneumothorax. Pulmonary vascularity: Unremarkable. Heart/mediastinum: Cardiomediastinal silhouette is unremarkable. Musculoskeletal: No acute osseous pathology. Other findings: None IMPRESSION: No acute cardiopulmonary disease/process.
[2023-12-24] MEDS: MAGNESIUM OXIDE 400 MG TAB PO STA ×2 (13:38→13:44)
[2023-12-24] MEDS: SODIUM CHLORIDE 0.9% 1,000 ML IV STA (13:42)
[2023-12-24] MEDS ORDERED: MORPHINE SULFATE 4 MG/ML SYRINGE IV PRN (14:47)
[2023-12-24] MEDS ORDERED: ONDANSETRON 4 MG/2 ML VIAL IVP PRN (14:47)
[2023-12-24] MEDS ORDERED: NALOXONE 0.4 MG/ML 1 ML VIAL IV PRN (14:47)
[2023-12-24 15:04] LABS: Appearance,Urine Clear (Clear); Bilirubin,Urine Negative (Negative); Blood,Urine Negative (Negative); Color,Urine Colorless; Glucose,Urine (UA) Negative (Negative); Ketones,Urine Negative (Negative); Leukocyte Esterase,Urine Negative (Negative); Nitrite,Urine Negative (Negative); PH, Urine 6.5 (5.0-8.0); Protein,Urine Negative (Negative); Specific Gravity,Urine 1.006 (1.001-1.035); Urobilinogen,Urine <2.0 mg/dL (<2.0)
--- NOTE | 2023-12-24 15:08 | CT ---
EXAMINATION TYPE: CT brain wo con DATE OF EXAM: 12/24/2023 COMPARISON: 11/08/2021 HISTORY: AMS CT DLP: 1201.4 mGycm Automated exposure control for dose reduction was used. FINDINGS: The ventricles, basal cisterns and sulci over convexities are within normal limits for patient's age. There is no mass effect or shift of midline structures. There is no acute intra or extra-axial hemorrhage. The posterior fossa is grossly normal. The intraorbital contents are symmetric and normal. There are marked chronic inflammatory changes inv olving the left maxillary sinus slightly worse compared to previous. The mastoid air cells are well-a erated IMPRESSION: 1. NO ACUTE HEMORRHAGE OR MASS EFFECT. 2. MARKED CHRONIC INFLAMMATORY CHANGES IN LEFT MAXILLARY SINUS WORSE COMPARED TO PREVIOUS.
[2023-12-24] MEDS: SODIUM CHLORIDE 0.9% 500 ML 500 ML IV STA (15:17)
[2023-12-24] MEDS: SODIUM CHLORIDE 0.9% 1,000 ML IV SCH (16:59)
[2023-12-24] MEDS ORDERED: DEXTROSE 50% SYRINGE 50 ML IVP PRN ×2 (17:52)
--- NOTE | 2023-12-24 17:53 | P.HPIM ---
History of Present Illness H&P Date: 12/24/23 83 year old F with PMH of AFib s/p Watchman device, h/o CVA, right hearing loss, HTN, DM, Hypothyroidism presents to the ED. History supplemented by the daughter in law. On Wednesday night, patient noted to feel funny. She described the feeling as "suction in the head". BP was noted to be unusually low at 88/56 HR 68. She rechecked her BP which improved to 102/63 before going to bed. On her BP was 145/76. This morning, patient called her daughter in law panicking because her BP was 156/83. She reports indigestion at that time and chest pain radiating to the back. All symptoms have currently resolved. Daughter in law also noted that patient is slightly more confused than normal (h/o dementia). In the ED she underwent extensive evaluation. BP 178/76, HR 62, RR 16, 96% on RA. CBC, Coag panel, CMP significant for PT 9.9, Na 132, BUN 19, glu 118, total protein 6.2. Mag 1.5. Troponin < 0.012 x 2. UA negative. EKG showed sinus rhythm with non specific T wave changes. Brain CT no acute findings besides left maxillary sinusitis. CXR negative. Patient is admitted for Cardiology evaluation. General: non toxic, no distress, appears at stated age Derm: warm, dry Head: atraumatic, normocephalic, symmetric Eyes: EOMI, no lid lag, anicteric sclera Mouth: no lip lesion, mucus membranes moist Cardiovascular: Normal S1 S2. NO murmurs, rubs or gallops Lungs: Clear to auscultation bilaterally, no accessory muscle use Ext: no gross muscle atrophy, no edema, no contractures Neuro: no focal neuro deficits Psych: Alert, oriented, appropriate affect Based on my assessment of this patient, this patient meets a high complexity level of care. Chest pain: Trend Trop/EKG to rule out ACS. ASA 81 mg PO QD. Lipitor 20 mg PO QHS. Telemetry monitoring. Cardiology consult. Hypertension, uncontrolled: SBP as high as 186. Restart Lisinopril 40 mg PO QHS and Aldactone 25 mg PO Q48H. h/o CVA: ASA and Lipitor as above. Hypothyroidism: Synthroid 75 mcg PO QD. Diabetes mellitus: ISS. Accuchecks ACHS. Hypoglycemic precautions. CODE STATUS: FULL CODE DVT Prophylaxis: Lovenox SQ GI Prophylaxis: Designated medical POA if patient is not able to make medical decisions for themselves: Son I have reviewed the following specification consultant notes: ED note I have reviewed the results of the following tests: As above. I have ordered the following tests: I have discussed the care of this patient with the following independent historian: Sister in law and Son. I have independently interpreted the following test below: EKG. CXR. I have discussed the management of this patient with the following physician: ER provider. 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 seizure @that time, residual balance problem, uses walker, took keppra short period of time but no longer on, urinary frequency History of Any Multi-Drug Resistant Organisms: None Reported Past Surgical History: Appendectomy, Cholecystectomy Additional Past Surgical History / Comment(s): cataracts, partial thyroidectomy , Watchman implanted @[facility] 07-13-22 Past Anesthesia/Blood Transfusion Reactions: Motion Sickness Additional Past Anesthesia/Blood Transfusion Reaction / Comment(s): slow to wake up from anesthesia Past Psychological History: No Psychological Hx Reported Smoking Status: Never smoker - Past Family History Father Family Medical History: Myocardial Infarction ([place]) Mother Family Medical History: COPD Additional Family Medical History / Comment(s): Alzheimer's Medications and Allergies Home Medications Medication Instructions Recorded Confirmed Type Aspirin 81 mg PO DAILY 01/12/14 12/24/23 History Levothyroxine Sodium [Synthroid] 75 mcg PO DAILY 01/12/14 12/24/23 History lisinopriL 40 mg PO HS 01/12/14 12/24/23 History Calcium Carbonate [Calcium] 1,200 mg PO W/LUNCH 11/07/21 12/24/23 History Glimepiride [Amaryl] 1 mg PO DAILY 11/07/21 12/24/23 History Spironolactone [Aldactone] 25 mg PO Q48H 12/16/21 12/24/23 History Cyanocobalamin (Vitamin B-12) 1,000 mcg PO W/LUNCH 08/21/22 12/24/23 History [Vitamin B-12] Atorvastatin [Lipitor] 20 mg PO HS 12/24/23 12/24/23 History Cholecalciferol [Vitamin D3 (125 125 mcg PO W/LUNCH 12/24/23 12/24/23 History Mcg = 5000 Iu)] oxyBUTYnin chloride [Ditropan] 5 mg PO BID 12/24/23 12/24/23 History Allergies Allergy/AdvReac Type Severity Reaction Status Date / Time adhesive tape Allergy Rash/Hives Verified 12/24/23 13:51 lactic acid [From AmLactin] Allergy Rash/Hives Verified 12/24/23 13:51 potassium lactate Allergy Rash/Hives Verified 12/24/23 13:51 [From AmLactin] sodium lactate Allergy Rash/Hives Verified 12/24/23 13:51 [From AmLactin] cephalexin [From Keflex] AdvReac Nausea & Verified 12/24/23 13:51 Vomiting fenofibrate nanocrystallized AdvReac irregular Verified 12/24/23 13:51 [From Tricor] heart rate fenofibrate,micronized AdvReac irregular Verified 12/24/23 13:51 [From Tricor] heart rate moxifloxacin [From Vigamox] AdvReac Nausea & Verified 12/24/23 13:51 Vomiting Physical Exam Vitals: Vital Signs Temp Pulse Resp BP Pulse Ox 12/24/23 17:00 68 18 155/71 95 12/24/23 15:30 69 18 185/91 94 L 12/24/23 14:15 69 18 180/84 97 12/24/23 14:00 68 18 186/73 98 12/24/23 13:45 62 16 178/76 96 12/24/23 13:15 64 18 181/76 96 12/24/23 12:25 198/78 12/24/23 12:02 97.5 F L 72 16 177/93 97 Intake and Output 12/24/23 12/24/23 12/24/23 06:59 14:59 22:59 Other: Weight 88.451 kg Results CBC & Chem 7: 12/24/23 12:21 12/24/23 12:21 Labs: Abnormal Lab Results - Last 24 Hours (Table) 12/24/23 12/24/23 Range/Units 12:21 12:21 PT 9.9 L (10.0-12.5) sec Sodium 132 L (137-145) mmol/L BUN 19 H (7-17) mg/dL Glucose 118 H (74-99) mg/dL Magnesium 1.5 L (1.6-2.3) mg/dL Total Protein 6.2 L (6.3-8.2) g/dL
[2023-12-24 18:04] VITALS: TEMP 98.3
[2023-12-24 20:15] LABS: Glucose,Whole Blood 142 mg/dL (70-110)
[2023-12-24] MEDS: lisinopriL 20 MG TAB PO SCH (20:34)
[2023-12-24] MEDS: oxyBUTYnin chloride 5 MG TAB PO SCH (20:34)
[2023-12-24] MEDS: ATORVASTATIN 20 MG TAB PO SCH (20:34)
[2023-12-24] MEDS: INSULIN ASPART (NovoLOG) 100 UNIT/ML VIAL SQ SCH (20:35)
[2023-12-25] MEDS: LEVOTHYROXINE 75 MCG TAB PO SCH (06:35)
[2023-12-25 07:22] LABS: Glucose,Whole Blood 147 mg/dL (70-110)
[2023-12-25 07:29] LABS: Basophils % (A) 1 %; Eosinophils # (A) 0.2 k/uL (0-0.7); Eosinophils % (A) 5 %; HCT 35.5 % (34.0-46.0); HGB 11.9 gm/dL (11.4-16.0); Lymphocytes # (A) 1.2 k/uL (1.0-4.8); Lymphocytes % (A) 27 %; MCHC 33.4 g/dL (31.0-37.0); MCV 89.9 fL (80.0-100.0); Mean Platelet Volume 7.1; Monocytes # (A) 0.2 k/uL (0-1.0); Monocytes % (A) 5 %; Neutrophils # (A) 2.6 k/uL (1.3-7.7); Neutrophils % (A) 60 %; Platelet Count 175 k/uL (150-450); RBC 3.95 m/uL (3.80-5.40); RDW 14.1 % (11.5-15.5); WBC 4.4 k/uL (3.8-10.6)
[2023-12-25 07:46] LABS: ALT 16 U/L (4-34); AST 22 U/L (14-36); African American GFR (CKD) 65 (>60 ml/min/1.73 sqM); Albumin 3.2 g/dL (3.5-5.0); Albumin/Globulin Ratio 1.5; Alkaline Phosphatase 53 U/L (38-126); Anion Gap 4 mmol/L; Blood Urea Nitrogen 13 mg/dL (7-17); Calcium 8.6 mg/dL (8.4-10.2); Carbon Dioxide 23 mmol/L (22-30); Chloride 109 mmol/L (98-107); Globulin 2.2 g/dL; Glucose 134 mg/dL (74-99); Magnesium 1.6 mg/dL (1.6-2.3); Non-African American GFR(CKD) 56 (>60 ml/min/1.73 sqM); Phosphorus 3.4 mg/dL (2.5-4.5); Potassium 4.2 mmol/L (3.5-5.1); Sodium 136 mmol/L (137-145); Total Bilirubin 0.6 mg/dL (0.2-1.3); Total Protein 5.4 g/dL (6.3-8.2)
[2023-12-25] MEDS: ASPIRIN 81 MG PO SCH (08:03)
[2023-12-25] MEDS: ENOXAPARIN 40 MG/0.4 ML SYRINGE SQ SCH (08:03)
[2023-12-25] MEDS: SPIRONOLACTONE 25 MG TAB PO SCH (08:03)
[2023-12-25 12:21] LABS: Glucose,Whole Blood 121 mg/dL (70-110)
--- NOTE | 2023-12-25 13:24 | P.DS ---
Providers Date of admission: 12/24/23 14:48 Expected date of discharge: 12/25/23 Attending physician: Mikaela Rangel MD Consults: 12/24/23 17:51 Consult Physician Routine Consulting Provider: Demarcus Stallings Consult Reason/Comments: CP Do you want consulting provider notified?: Yes Primary care physician: [facility] Course: 83 year old F with PMH of AFib s/p Watchman device, h/o CVA, right hearing loss, HTN, DM, Hypothyroidism presents to the ED. History supplemented by the daughter in law. On Wednesday night, patient noted to feel funny. She described the feeling as "suction in the head". BP was noted to be unusually low at 88/56 HR 68. She rechecked her BP which improved to 102/63 before going to bed. On her BP was 145/76. This morning, patient called her daughter in law panicking because her BP was 156/83. She reports indigestion at that time and chest pain radiating to the back. All symptoms have currently resolved. Daughter in law also noted that patient is slightly more confused than normal (h/o dementia). In the ED she underwent extensive evaluation. BP 178/76, HR 62, RR 16, 96% on RA. CBC, Coag panel, CMP significant for PT 9.9, Na 132, BUN 19, glu 118, total protein 6.2. Mag 1.5. Troponin < 0.012 x 2. UA negative. EKG showed sinus rhythm with non specific T wave changes. Brain CT no acute findings besides left maxillary sinusitis. CXR negative. Patient is admitted for Cardiology evaluation. Troponins negative. ACS ruled out. Evaluated by Dr. Vargas and cleared for discharge on current medication regimen. Extensively discussed with family at bedside. Advised low salt diet. Emphasized BP fluctuates throughout the day and due to different circumstances like stress and anxiety. Her BP has been running on the higher side during this hospital stay but likely related to anxiety from being here. Advised to continue monitoring BP, come back to the ED for SBP > 200 and follow up with Dr. Stallings for further titration if necessary. General: non toxic, no distress, appears at stated age Derm: warm, dry Head: atraumatic, normocephalic, symmetric Eyes: EOMI, no lid lag, anicteric sclera Mouth: no lip lesion, mucus membranes moist Cardiovascular: good distal perfusion in all 4 extremities Lungs: breathing comfortably, no accessory muscle use Ext: no gross muscle atrophy, no edema, no contractures Neuro: no focal neuro deficits Psych: Alert, oriented, appropriate affect Discharge Diagnosis: Chest pain Hypertension h/o CVA Hypothyroidism Diabetes mellitus This complex discharge took 35 minutes to complete. Patient Condition at Discharge: Stable Plan - Discharge Summary New Discharge Prescriptions: Continue Aspirin 81 mg PO DAILY lisinopriL 40 mg PO HS Levothyroxine Sodium [Synthroid] 75 mcg PO DAILY Calcium Carbonate [Calcium] 1,200 mg PO W/LUNCH Glimepiride [Amaryl] 1 mg PO DAILY Spironolactone [Aldactone] 25 mg PO Q48H Cyanocobalamin (Vitamin B-12) [Vitamin B-12] 1,000 mcg PO W/LUNCH Cholecalciferol [Vitamin D3 (125 Mcg = 5000 Iu)] 125 mcg PO W/LUNCH oxyBUTYnin chloride [Ditropan] 5 mg PO BID Atorvastatin [Lipitor] 20 mg PO HS Discharge Medication List Aspirin 81 mg PO DAILY 01/12/14 [History] Levothyroxine Sodium [Synthroid] 75 mcg PO DAILY 01/12/14 [History] lisinopriL 40 mg PO HS 01/12/14 [History] Calcium Carbonate [Calcium] 1,200 mg PO W/LUNCH 11/07/21 [History] Glimepiride [Amaryl] 1 mg PO DAILY 11/07/21 [History] Spironolactone [Aldactone] 25 mg PO Q48H 12/16/21 [History] Cyanocobalamin (Vitamin B-12) [Vitamin B-12] 1,000 mcg PO W/LUNCH 08/21/22 [History] Atorvastatin [Lipitor] 20 mg PO HS 12/24/23 [History] Cholecalciferol [Vitamin D3 (125 Mcg = 5000 Iu)] 125 mcg PO W/LUNCH 12/24/23 [History] oxyBUTYnin chloride [Ditropan] 5 mg PO BID 12/24/23 [History] Follow up Appointment(s)/Referral(s): Demarcus Stallings MD [STAFF PHYSICIAN] - 1 Week Yasmany Patterson DO [Primary Care Provider] - 1-2 days Activity/Diet/Wound Care/Special Instructions: Diet; Low salt Discharge Disposition: HOME SELF-CARE
[2023-12-25 13:50] VITALS: BP 162/76; PULSE 64; RESP 18
--- NOTE | 2023-12-25 14:38 | P.CRDCN ---
History of Present Illness Consult date: 12/25/23 Consult reason: chest pain History of present illness: History of present illness: Patient is a pleasant 83-year-old female with significant past medical history of A-fib status post Watchman device, history of stroke, hypertension, diabetes, and hypothyroidism who presented to the emergency department with chest pain and elevated blood pressure. She does follow with Dr. Stallings in the office. She reports that 3 days ago she was having issues with her blood pressure being low in the 80s/50s, she did feel funny and "quivering "at that time. Then yesterday she reports having indigestion with pain in her left chest radiating to her back , she usually takes Tums and the indigestion will resolve, Tums did not help at this time and the pain lasted for 1-2 hours and she presented to the emergency department. She denies any shortness of breath, diaphoresis, or nausea. Family is concerned as her blood pressure is labile being low and high at home. She denies any recent illness or fevers or chills. She does not smoke. She had a prior echocardiogram 10/2021 with EF 45-50%. Labs reviewed: Troponin negative x 2, sodium 136, creatinine 0.94, potassium 4.2. She did have a recent MRI of the brain 10/2023 that was negative for any acute findings. She is feeling better today and denies any chest pain or pressure. Denies any dizziness, lightheadedness, or shortness of breath. She does have slight chest tenderness on exam. EKG does show sinus rhythm with nonspecific T wave changes, similar to prior EKG. REVIEW OF SYSTEMS: No fever or chills. No cough or expectoration. No diaphoresis. Patient denies headache, dizziness, blurred vision, double vision. Patient denies any stomach discomfort. No nausea, vomiting. No hematochezia. No hematemesis. Denies any black stools or blood in his stools. Denies dysuria or hematuria. No muscle weakness or numbness. No chest pain or pressure. PHYSICAL EXAMINATION: This is a 83-year-old female in no apparent distress at the time of my examination. HEENT: Head is atraumatic, normocephalic. Pupils are equal, round. Sclerae anicteric. Conjunctivae are clear. Mucous membranes of the mouth are moist. Neck is supple. There is no jugular venous distention. No carotid bruit is heard. CHEST EXAMINATION: Lungs are clear to auscultation. Slight chest wall tenderness on the left. HEART EXAMINATION: Heart regular rate and rhythm. S1, S2 heard. No murmurs, gallops or rub. ABDOMEN: Soft, nontender. Bowel sounds are heard. EXTREMITIES: 2+ peripheral pulses with no evidence of peripheral edema and no calf tenderness noted. NEUROLOGIC EXAMINATION: Patient is awake, alert and oriented x3. IMPRESSION AND PLAN: A-fib s/p Watchman History of stroke 2021 Hypertension Diabetes Hypothyroidism Chest pain, atypical PLAN: ACS ruled out. Continue with current regimen. She was advised to papo linda to monitor her blood pressure. Okay to discharge home from cardiac standpoint. If symptoms worsen consider further evaluation as an outpatient or return to emergency department. Follow-up in clinic in 1-[address] Stallings. I am dictating on behalf of Dr. Leo Vargas's history/physical and assessment/plan. 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 seizure @that time, residual balance problem, uses walker, took keppra short period of t poncho but no longer on, urinary frequency History of Any Multi-Drug Resistant Organisms: None Reported Past Surgical History: Appendectomy, Cholecystectomy Additional Past Surgical History / Comment(s): cataracts, partial thyroidectomy , Watchman implanted @[facility] 07-13-22 Past Anesthesia/Blood Transfusion Reactions: Motion Sickness Additional Past Anesthesia/Blood Transfusion Reaction / Comment(s): slow to wake up from anesthesia Past Psychological History: No Psychological Hx Reported Smoking Status: Never smoker - Past Family History Father Family Medical History: Myocardial Infarction ([place]) Mother Family Medical History: COPD Additional Family Medical History / Comment(s): Alzheimer's Medications and Allergies Home Medications Medication Instructions Recorded Confirmed Type Aspirin 81 mg PO DAILY 01/12/14 12/24/23 History Levothyroxine Sodium [Synthroid] 75 mcg PO DAILY 01/12/14 12/24/23 History lisinopriL 40 mg PO HS 01/12/14 12/24/23 History Calcium Carbonate [Calcium] 1,200 mg PO W/LUNCH 11/07/21 12/24/23 History Glimepiride [Amaryl] 1 mg PO DAILY 11/07/21 12/24/23 History Spironolactone [Aldactone] 25 mg PO Q48H 12/16/21 12/24/23 History Cyanocobalamin (Vitamin B-12) 1,000 mcg PO W/LUNCH 08/21/22 12/24/23 History [Vitamin B-12] Atorvastatin [Lipitor] 20 mg PO HS 12/24/23 12/24/23 History Cholecalciferol [Vitamin D3 (125 125 mcg PO W/LUNCH 12/24/23 12/24/23 History Mcg = 5000 Iu)] oxyBUTYnin chloride [Ditropan] 5 mg PO BID 12/24/23 12/24/23 History Allergies Allergy/AdvReac Type Severity Reaction Status Date / Time adhesive tape Allergy Rash/Hives Verified 12/24/23 13:51 lactic acid [From AmLactin] Allergy Rash/Hives Verified 12/24/23 13:51 potassium lactate Allergy Rash/Hives Verified 12/24/23 13:51 [From AmLactin] sodium lactate Allergy Rash/Hives Verified 12/24/23 13:51 [From AmLactin] cephalexin [From Keflex] AdvReac Nausea & Verified 12/24/23 13:51 Vomiting fenofibrate nanocrystallized AdvReac irregular Verified 12/24/23 13:51 [From Tricor] heart rate fenofibrate,micronized AdvReac irregular Verified 12/24/23 13:51 [From Tricor] heart rate moxifloxacin [From Vigamox] AdvReac Nausea & Verified 12/24/23 13:51 Vomiting Physical Exam Vitals: Vital Signs Temp Pulse Resp BP Pulse Ox 12/25/23 06:00 62 16 156/73 12/25/23 01:06 74 18 137/86 95 12/24/23 23:09 64 18 154/68 94 L 12/24/23 18:00 98.3 F 77 18 164/82 95 12/24/23 17:00 68 18 155/71 95 12/24/23 15:30 69 18 185/91 94 L 12/24/23 14:15 69 18 180/84 97 12/24/23 14:00 68 18 186/73 98 12/24/23 13:45 62 16 178/76 96 12/24/23 13:15 64 18 181/76 96 12/24/23 12:25 198/78 12/24/23 12:02 97.5 F L 72 16 177/93 97 Results 12/25/23 06:52 12/25/23 06:52 Cardiac Enzymes 12/24/23 12/24/23 12/24/23 Range/Units 12:21 12:21 15:27 AST 27 (14-36) U/L Troponin I <0.012 <0.012 (0.000-0.034) ng/mL 12/24/23 12/25/23 Range/Units 18:21 06:52 AST 22 (14-36) U/L Troponin I <0.012 (0.000-0.034) ng/mL Coagulation 12/24/23 Range/Units 12:21 PT 9.9 L (10.0-12.5) sec APTT 22.9 (22.0-30.0) sec CBC 12/24/23 12/25/23 Range/Units 12:21 06:52 WBC 4.6 4.4 (3.8-10.6) k/uL RBC 4.19 3.95 (3.80-5.40) m/uL Hgb 12.5 11.9 (11.4-16.0) gm/dL Hct 37.0 35.5 (34.0-46.0) % Plt Count 189 175 (150-450) k/uL Comprehensive Metabolic Panel 12/24/23 12/25/23 Range/Units 12:21 06:52 Sodium 132 L 136 L (137-145) mmol/L Potassium 4.5 4.2 (3.5-5.1) mmol/L Chloride 100 109 H (98-107) mmol/L Carbon Dioxide 24 23 (22-30) mmol/L BUN 19 H 13 (7-17) mg/dL Creatinine 0.97 0.94 (0.52-1.04) mg/dL Glucose 118 H 134 H (74-99) mg/dL Calcium 9.6 8.6 (8.4-10.2) mg/dL AST 27 22 (14-36) U/L ALT 19 16 (4-34) U/L Alkaline Phosphatase 61 53 (38-126) U/L Total Protein 6.2 L 5.4 L (6.3-8.2) g/dL Albumin 3.9 3.2 L (3.5-5.0) g/dL Current Medications Generic Name Dose Route Start Last Admin Trade Name Freq PRN Reason Stop Dose Admin Aspirin 81 mg 12/25/23 09:00 12/25/23 08:03 Aspirin 81 Mg PO 81 mg DAILY KELSEY Administration Atorvastatin Calcium 20 mg 12/24/23 21:00 12/24/23 20:34 Atorvastatin 20 Mg Tab PO 20 mg HS KELSEY Administration Dextrose/Water 25 ml 12/24/23 17:52 Dextrose 50% Syringe 50 Ml IVP PER PROTOCOL PRN Hypoglycemia Protocol Dextrose/Water 50 ml 12/24/23 17:52 Dextrose 50% Syringe 50 Ml IVP PER PROTOCOL PRN Hypoglycemia Protocol Enoxaparin Sodium 40 mg 12/25/23 09:00 12/25/23 08:03 Enoxaparin 40 Mg/0.4 Ml Syringe SQ 40 mg DAILY KELSEY Administration Insulin Aspart 0 unit 12/24/23 21:00 12/25/23 07:27 Insulin Aspart (Novolog) 100 Unit/Ml Vial SQ Not Given ACHS [facility] Protocol Levothyroxine Sodium 75 mcg 12/25/23 06:30 12/25/23 06:35 Levothyroxine 75 Mcg Tab PO 75 mcg 0630 KELSEY Administration Lisinopril 40 mg 12/24/23 21:00 12/24/23 20:34 Lisinopril 20 Mg Tab PO 40 mg HS KELSEY Administration Naloxone HCl 0.2 mg 12/24/23 14:47 Naloxone 0.4 Mg/Ml 1 Ml Vial IV Q2M PRN Opioid Reversal Ondansetron HCl 4 mg 12/24/23 14:47 Ondansetron 4 Mg/2 Ml Vial IVP Q8HR PRN Nausea And Vomiting Spironolactone 25 mg 12/25/23 09:00 12/25/23 08:03 Spironolactone 25 Mg Tab PO 25 mg Q48H KELSEY Administration 12/25/23 06:52 12/25/23 06:52
== END 2023-12-25 13:58 | disposition home or self-care (01) ==
LOC: EC 11:58 → 6NMEDSUR 14:48
PROVIDERS: ADMIT Family Medicine; ATTEND Family Medicine
DX: R07.89 Other chest pain (principal); G93.40 Encephalopathy, unspecified; R53.1 Weakness; I48.91 Unspecified atrial fibrillation; E11.9 Type 2 diabetes mellitus without complications; E78.5 Hyperlipidemia, unspecified; I10 Essential (primary) hypertension; E03.9 Hypothyroidism, unspecified; F03.90 Unspecified dementia, unspecified severity, without behavioral disturbance, psychotic disturbance, mood disturbance, and anxiety; Z85.828 Personal history of other malignant neoplasm of skin; Z86.73 Personal history of transient ischemic attack (TIA), and cerebral infarction without residual deficits; Z79.82 Long term (current) use of aspirin; Z79.890 Hormone replacement therapy; Z79.899 Other long term (current) drug therapy; Z79.84 Long term (current) use of oral hypoglycemic drugs; Z88.1 Allergy status to other antibiotic agents; Z82.49 Family history of ischemic heart disease and other diseases of the circulatory system
CPT/HCPCS: 36415; 70450; 71046; 80053; 81003; 83735; 84100; 84484; 85025; 85610; 85730; 93005; 96360; 96361; 96372; 99285

== ENCOUNTER → 2024-02-02 | Outpatient (CLI) | payer MEDICARE ==
--- NOTE | 2024-02-02 13:08 | BD ---
EXAMINATION TYPE: Axial Bone Density DATE OF EXAM: 02/02/2024 CLINICAL HISTORY: 83 years old Female. ICD-10 CODE: Z78.0 Post menopausal Height: 63 Weight: 197.3 FRAX RISK QUESTIONS: Alcohol (3 or more units per day): no Family History (Parent hip fracture): n o Glucocorticoids (More than 3mos): no (Ex: prednisone, prednisolone, methylprednisolone, dexamethasone, and hydrocortisone). History of Fracture in Adulthood: no Secondary Osteoporosis: 1. Type 1 Diabetes: no 2. Hyperthyroidism: no 3. Menopause before 45: yes 4. Malnutrition: no 5. Chronic liver disease: no Rheumatoid Arthritis: no Current Tobacco Use: no RISK FACTORS HISTORY OF: Hip Fracture (Right/Left): no Spine Fracture: no History of Wrist Fracture: no Surgery to Spine/Hip(right/left)/Wrist (right/left): no MEDICATIONS: Thyroid Medications: Levothyroxine How Long: past 30 years Osteoporosis Medications: no EXAM MEASUREMENTS: Bone mineral densitometry was performed using the [employer] System. Bone mineral density as measured about the Lumbar spine is: ----- L1-L4(G/cm2): 1.414 T Score Values are as follows: ----- L1: -0.2 ----- L2: 1.4 ----- L3: 2.9 ----- L4: 3.3 ----- L1-L4: 2.0 Z Score Values are as follows: ----- L1: 0.9 ----- L2: 2.5 ----- L3: 4.0 ----- L4: 4.3 ----- L1-L4: 3.0 Baseline Study Bone mineral density about the R hip (g/cm2): 1.121 Bone mineral density about the L hip (g/cm2): 1.212 T Score values are as follows: -----R Neck: 0.3 -----L Neck: 0.8 -----R Total: 0.9 -----L Total: 1.6 Z Score values are as follows: -----R Neck: 2.1 -----L Neck: 2.6 -----R Total: 2.5 -----L Total: 3.2 Baseline Study FRAX%s: The graph provided illustrates a 7.2% chance for a major osteoporotic fx and a 1.0% chance fo r the hips probability for fx in 10 years time. IMPRESSION: Normal (Values between +1 and -1 indicate normal bone mass). Consider repeating this study in 5 year s or sooner if there is some new clinical indication. NOTE: T-SCORE=SD OF THE YOUNG ADULT MEAN. [facility], , 02/02/2024 1:06 PM
[2024-02-02 15:54] LABS: BUN/Creat Ratio 17.09 Ratio (12.00-20.00); Blood Urea Nitrogen 18.8 mg/dL (9.0-27.0); Chloride 101 mmol/L (96-109); Chol/HDL Ratio 2.16 Ratio; Glucose 142 mg/dL (70-110); LDL Cholesterol,Calculated 25.7 mg/dL (0.0-131.0); Potassium 4.7 mmol/L (3.5-5.5); Sodium 137 mmol/L (135-145); Uric Acid 6.2 mg/dL (2.9-7.7)
--- NOTE | 2024-02-03 20:06 | MM ---
Reason for Exam: Screening (asymptomatic). Last mammogram was performed 1 year(s) and 5 month(s) ago. Patient History: Menarche at age 13. First Full-Term at age 24. Postmenopausal. Patient has history of breast feeding. 1987, Benign Excisional Biopsy on the right side. Risk Values: Yvette 5 year model risk: 1.6%. NCI Lifetime model risk: 2.0%. Prior Study Comparison: 07/07/2011 Bilateral Screening Mammogram, [facility]. 07/18/2013 Bilateral Screening Mammogram, [facility]. 09/17/2022 Bilateral MG 3D diag mammo w/cad JAVON, [facility]. 04/30/2023 Left MG 3D diag mammo w/cad LT, [facility]. Tissue Density: There are scattered areas of fibroglandular density. Findings: Analyzed By CAD. Redemonstrated postexcisional changes on the right. A few scattered benign oil cyst calcifications are redemonstrated. Grouped dystrophic calcifications posterior left breast are unchanged. There is no suspicious group of microcalcifications or new suspicious mass in either breast. Overall Assessment: Benign, BI-RAD 2 Management: Screening Mammogram of both breasts in 1 year. . Patient should continue monthly self-breast exams. A clinical breast exam by your physician is recommended on an annual basis. This exam should not preclude additional follow-up of suspicious palpable abnormalities. Note on Yvette scores and lifetime risk: 1. A Yvette score greater than 3% is considered moderate risk. If this is the case, consider specialist referral to assess eligibility for a risk reducing agent. 2. If overall lifetime risk for the development of breast cancer is 20% or higher, the patient may qualify for future screening with alternating mammogram and breast MRI. [facility], , 02/03/2024 8:04 PM. Electronically signed and approved by: Ady Wagner M.D. Radiologist
== END | disposition home or self-care (01) ==
LOC: RADMAMWWP 09:35
PROVIDERS: ATTEND Internal Medicine
CPT/HCPCS: 77063; 77067; 77080; 80048; 80061; 83036; 84439; 84443; 84550

== ENCOUNTER 2024-08-25 13:10 | Observation (INO) | payer MEDICARE ==
--- NOTE | 2024-08-25 13:57 | XR ---
EXAMINATION TYPE: XR pelvis AP view DATE OF EXAM: 08/25/2024 1:53 PM COMPARISON: None. CLINICAL INDICATION: Female, 84 years old with history of Trauma, pain TECHNIQUE: XR pelvis AP view views were obtained FINDINGS: No evidence for fracture, dislocation or bony lesion. Joint spaces are well-preserved. S I joints appear symmetric. IMPRESSION: No acute fracture or dislocation seen. [facility], , 08/25/2024 1:55 PM
--- NOTE | 2024-08-25 13:57 | XR ---
EXAMINATION TYPE: XR chest 1V portable DATE OF EXAM: 08/25/2024 1:53 PM COMPARISON: None. CLINICAL INDICATION: Female, 84 years old with history of trauma, TECHNIQUE: XR chest 1V portable views of the chest are obtained. FINDINGS: Demonstrated are scattered senescent parenchymal change. There is no evidence for focal infiltrate. The heart is stable. Hilar and mediastinal structures are within normal limits. Degenerative changes are seen of the dorsal spine. IMPRESSION: 1. Chronic changes without evidence for acute pulmonary disease. [facility], , 08/25/2024 1:55 PM
[2024-08-25 14:03] LABS: Lactic Acid, Venous 1.9 mmol/L (0.7-2.0)
[2024-08-25 14:05] LABS: ALT 19 U/L (4-34); AST 22 U/L (14-36); Acetaminophen <10.0 ug/mL; African American GFR (CKD) 56 (>60 ml/min/1.73 sqM); Albumin 3.9 g/dL (3.5-5.0); Alcohol <10 mg/dL; Alkaline Phosphatase 67 U/L (38-126); Anion Gap 8 mmol/L; Blood Urea Nitrogen 23 mg/dL (7-17); Calcium 9.4 mg/dL (8.4-10.2); Carbon Dioxide 23 mmol/L (22-30); Chloride 105 mmol/L (98-107); Glucose 127 mg/dL (74-99); Non-African American GFR(CKD) 49 (>60 ml/min/1.73 sqM); Potassium 4.4 mmol/L (3.5-5.1); Salicylate <1.0 mg/dL; Sodium 136 mmol/L (137-145); Total Bilirubin 0.8 mg/dL (0.2-1.3); Total Protein 6.4 g/dL (6.3-8.2)
--- NOTE | 2024-08-25 14:05 | CT ---
EXAMINATION TYPE: CT brain cspine wo con CT DLP: 1482.4 mGycm, Automated exposure control for dose reduction was used. DATE OF EXAM: 08/25/2024 1:54 PM COMPARISON: None.. CLINICAL INDICATION:Female, 84 years old with history of trauma; Trauma. Fall. AMS, pain TECHNIQUE: Brain: Multiple axial CT images of the brain were obtained without IV contrast. Cspine: Axial CT images from the skull base to the inferior aspect of T2 we obtained without intraven ous contrast. Coronal and sagittal reformatted images were also reviewed. FINDINGS: Brain: Extra-axial spaces: No abnormal extra-axial fluid collections. Ventricular system: Within normal limits Cerebral parenchyma: Cerebral atrophy. No acute intraparenchymal hemorrhage or mass effect. The judd -white junction is well differentiated. Scattered hypoattenuating areas are seen within the periventr icular white matter. Cerebellum: Unremarkable. Mass effect: No evidence of midline shift. Intracranial vasculature: Atherosclerotic calcifications of the intracranial vessels. Soft tissues: Normal. Calvarium/osseous structures: No depressed skull fracture. Benign hyperostosis frontalis noted. Paranasal sinuses and mastoid air cells: The mastoid air cells are clear. Near complete opacification of the left maxillary sinus with hyperostosis of the maxillary rivera. Visualized orbits: Bilateral aphakia Cervical spine: Fracture: None. Osseous structures: Multilevel degenerative disc disease changes with endplate spurring and disc spac e narrowing. Bilateral AC joint arthropathy with right greater than left. There is a 1 Central lytic metaphyseal lesion with well demarcated sclerotic rim within the proximal right humerus most consiste nt with a unicameral bone cyst. Vertebral alignment: Within normal limits. Spinal canal/Neural Foramina: Central disc protrusion at C4-C5 and C5-C6 with mild effacement of the anterior thecal sac. No evidence for significant neural foraminal stenosis. Neck soft tissues: Prevertebral soft tissues are within normal limits. Other: The airway is patent. The lung apices are clear. Bilateral carotid bulb calcifications right g reater than left. Retropharyngeal course of the carotid vessels bilaterally. IMPRESSION: 1. No acute intracranial process. 2. Nonspecific white matter changes, likely secondary to chronic small vessel ischemic disease. 3. No evidence of cervical spine fracture. 4. Mild multilevel degenerative disc disease. 5. Right proximal humerus unicameral bone cyst. 6. Chronic left maxillary sinusitis. [facility], , 08/25/2024 2:03 PM
[2024-08-25 14:09] LABS: Basophils # (A) 0.03 10*3/uL (0.00-0.10); Basophils % (A) 0.6 %; Eosinophils # (A) 0.18 10*3/uL (0.04-0.35); Eosinophils % (A) 3.4 %; HCT 37.3 % (37.2-46.3); HGB 12.5 g/dL (12.0-15.0); Lymphocytes # (A) 2.29 10*3/uL (0.90-5.00); Lymphocytes % (A) 43.1 %; MCH 29.1 pg (27.0-32.0); MCHC 33.5 g/dL (32.0-37.0); MCV 86.9 fL (80.0-97.0); Mean Platelet Volume 9.6 fL (9.5-12.2); Monocytes # (A) 0.26 10*3/uL (0.20-1.00); Monocytes % (A) 4.9 %; Neutrophils # (A) 2.53 10*3/uL (1.80-7.70); Neutrophils % (A) 47.6 %; RBC 4.29 10*6/uL (4.10-5.20); RDW 14.2 % (11.5-14.5); WBC 5.31 10*3/uL (4.50-10.00)
[2024-08-25] MEDS: SODIUM CHLORIDE 0.9% 1,000 ML IV STA (14:22)
[2024-08-25 14:41] LABS: Influenza A Not Detected (Not Detectd); Influenza B Not Detected (Not Detectd); RSV Not Detected (Not Detectd)
[2024-08-25] MEDS: ACETAMINOPHEN TAB 325 MG TAB PO STA (14:48)
[2024-08-25] MEDS ORDERED: NALOXONE 0.4 MG/ML 1 ML VIAL IV PRN (15:22)
[2024-08-25] MEDS ORDERED: ONDANSETRON 4 MG/2 ML VIAL IVP PRN (15:22)
--- NOTE | 2024-08-25 15:27 | ED ---
General Adult HPI - General Chief complaint: Fall Stated complaint: fall,AMS Time Seen by Provider: 08/25/24 13:15 Source: patient, RN notes reviewed, old records reviewed Mode of arrival: ambulatory Limitations: no limitations - History of Present Illness Initial comments: Patient is an 84-year-old female presents emergency department complaining of a fall. Also new onset generalized weakness. Patient is a relatively poor historian. States she fell. Alert and oriented x 4. Unknown if she lost consciousness. Does not believe she is on blood thinners. Unknown how she fell. Is currently just complaining of neck pain as well as posterior skull pain. Denies any chest pain, shortness of breath, abdominal pain, nausea, vomiting. Does have a history of atrial fibrillation, CVA, diabetes, and presents for further evaluation. Patient is overall a poor historian. Apparently does ambulate with a walker at baseline but otherwise is independent with her ADLs. - Related Data Home Medications Medication Instructions Recorded Confirmed Aspirin 81 mg PO DAILY 01/12/14 12/24/23 Levothyroxine Sodium [Synthroid] 75 mcg PO DAILY 01/12/14 12/24/23 lisinopriL 40 mg PO HS 01/12/14 12/24/23 Calcium Carbonate [Calcium] 1,200 mg PO W/LUNCH 11/07/21 12/24/23 Glimepiride [Amaryl] 1 mg PO DAILY 11/07/21 12/24/23 Spironolactone [Aldactone] 25 mg PO Q48H 12/16/21 12/24/23 Cyanocobalamin (Vitamin B-12) 1,000 mcg PO W/LUNCH 08/21/22 12/24/23 [Vitamin B-12] Atorvastatin [Lipitor] 20 mg PO HS 12/24/23 12/24/23 Cholecalciferol [Vitamin D3 (125 125 mcg PO W/LUNCH 12/24/23 12/24/23 Mcg = 5000 Iu)] oxyBUTYnin chloride [Ditropan] 5 mg PO BID 12/24/23 12/24/23 Aspirin EC [Ecotrin Low Dose] 81 mg PO DAILY 08/25/24 08/25/24 Atorvastatin [Lipitor] 20 mg PO HS 08/25/24 08/25/24 Calcium Carbonate [Calcium] 1,200 mg PO DAILY@1200 08/25/24 08/25/24 Cholecalciferol [Vitamin D3 (125 125 mcg PO DAILY@1200 08/25/24 08/25/24 Mcg = 5000 Iu)] Cyanocobalamin (Vitamin B-12) 1,000 mcg PO DAILY@1200 08/25/24 08/25/24 [Vitamin B-12] Glimepiride [Amaryl] 1 mg PO DAILY 08/25/24 08/25/24 Levothyroxine Sodium [Synthroid] 75 mcg PO DAILY 08/25/24 08/25/24 Spironolactone [Aldactone] 25 mg PO Q2D 08/25/24 08/25/24 lisinopriL [Zestril] 10 mg PO BID 08/25/24 08/25/24 oxyBUTYnin chloride [Ditropan] 5 mg PO BID 08/25/24 08/25/24 Allergies Allergy/AdvReac Type Severity Reaction Status Date / Time adhesive tape Allergy Rash/Hives Verified 08/25/24 14:45 lactic acid [From AmLactin] Allergy Rash/Hives Verified 08/25/24 14:45 potassium lactate Allergy Rash/Hives Verified 08/25/24 14:45 [From AmLactin] sodium lactate Allergy Rash/Hives Verified 08/25/24 14:45 [From AmLactin] cephalexin [From Keflex] AdvReac Nausea & Verified 08/25/24 14:45 Vomiting fenofibrate [From Tricor] AdvReac "heart Verified 08/25/24 14:45 goes out of rhythm" fenofibrate nanocrystallized AdvReac irregular Verified 08/25/24 14:45 [From Tricor] heart rate fenofibrate,micronized AdvReac irregular Verified 08/25/24 14:45 [From Tricor] heart rate moxifloxacin [From Vigamox] AdvReac Nausea & Verified 08/25/24 14:45 Vomiting surgcial tape Allergy Rash/Hives Uncoded 08/25/24 14:45 Review of Systems ROS Statement: Those systems with pertinent positive or pertinent negative responses have been documented in the HPI. Review of Systems: CONST: Denies fever EYES: Denies blurry vision ENT: Denies nasal congestion C/V: Denies Chest pain RESP: Denies shortness of breath GI: Denies abdominal pain : Denies dysuria SKIN: Denies rash. MSK: Endorses neck pain NEURO: Denies headache ROS Other: All systems not noted in ROS Statement are negative. 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 time, residual balance problem, uses walker, took keppra short period of time but no longer on, urinary frequency History of Any Multi-Drug Resistant Organisms: None Reported Past Surgical History: Unable to Obtain Additional Past Surgical History / Comment(s): cataracts, partial thyroidectomy , Watchman implanted @[facility] 07-13-22 Past Anesthesia/Blood Transfusion Reactions: Motion Sickness Additional Past Anesthesia/Blood Transfusion Reaction / Comment(s): slow to wake up from anesthesia Past Psychological History: Unable to Obtain Smoking Status: Unknown if ever smoked Past Alcohol Use History: Unable to Obtain Past Drug Use History: Unable to Obtain - Past Family History Father Family Medical History: Myocardial Infarction (MO) Mother Family Medical History: COPD Additional Family Medical History / Comment(s): Alzheimer's General Exam - General Exam Comments Initial Comments: General: Appears in no acute distress. HEAD: Normal with no signs of head trauma. Negative Segovia sign. Negative raccoon eyes.Small scalp contusion on the occiput. EYES: PERRLA, EOMI, conjunctiva normal, no discharge. Pupils are 3 mm and equal bilaterally ENT: Hearing grossly intact, normal oropharynx. Cervical collar in place. RESPIRATORY: Clear breath sounds bilaterally. No wheezes, rales, or rhonchi. C/V: Regular rate and rhythm. S1 and S2 auscultated, no edema, peripheral pulses 2+ and intact throughout ABD: Abd is soft, nontender, nondistended EXT: Normal range of motion, no obvious deformity. Mild left-sided posterior neck tenderness to palpation. No significant midline cervical spine tenderness to palpation. No midline thoracic or lumbar spine tenderness to palpation. Pelvis is stable. No extremity pain. SKIN: No rashes or lesions observed on exposed skin. NEURO: Alert and oriented x 4. Generalized weakness of all 4 extremities. No focal or unilateral weakness. Limitations: no limitations Course Vital Signs 08/25/24 08/25/24 08/25/24 13:13 14:22 17:00 Temperature 97.3 F L Pulse Rate 82 80 80 Respiratory 18 13 20 Rate Blood Pressure 195/76 162/71 143/52 O2 Sat by Pulse 95 96 98 Oximetry 08/25/24 18:30 Temperature Pulse Rate 69 Respiratory 21 Rate Blood Pressure 122/69 O2 Sat by Pulse 98 Oximetry Medical Decision Making - Medical Decision Making Was pt. sent in by a medical professional or institution (, PA, BOTTLE PACKING MACHINE CLEANER, urgent care, hospital, or group home...) When possible be specific @ -No Did you speak to anyone other than the patient for history (EMS, parent, family, police, friend...)? What history was obtained from this source @ -Spoke with EMS who found the patient. She seems to have some conversational confusion but is alert and oriented. Spoke with patient's son who states this is currently below her baseline. Has had previous episodes of this. Does have a history of stroke. Did you review nursing and triage notes (agree or disagree)? Why? @ -I reviewed and agree with nursing and triage notes Were old charts reviewed (outside hosp., previous admission, EMS record, old EKG, old radiological studies, urgent care reports/EKG's, group home records)? Report findings @ -Compared today's EKG with EKG from November 2023 with no obvious acute change. Differential Diagnosis (chest pain, altered mental status, abdominal pain women, abdominal pain men, vaginal bleeding, weakness, fever, dyspnea, syncope, headache, dizziness, GI bleed, back pain, seizure, CVA, palpatations, mental health, musculoskeletal)? @ -Differential Weakness: Hypoglycemia, shock, sepsis, hyponatremia, anemia, infection, MO, ETOH, adverse medicine reaction, overdose, stroke, this is not meant to be an all-inclusive list. EKG interpreted by me (3pts min.). @ -As above X-rays interpreted by me (1pt min.). @ -Chest x-ray shows no obvious acute cardiopulmonary process. Pelvis x-ray shows no obvious acute cardiopulmonary process. CT interpreted by me (1pt min.). @ -CT brain shows no obvious acute intracranial process. CT angiogram head and neck negative for any obvious acute process. CT cervical spine shows no obvious acute injury or process. U/S interpreted by me (1pt. min.). @ -None done What testing was considered but not performed or refused? (CT, X-rays, U/S, labs)? Why? @ -None What meds were considered but not given or refused? Why? @ -None Did you discuss the management of the patient with other professionals (professionals i.e. , PA, BOTTLE PACKING MACHINE CLEANER, lab, RT, psych nurse, social services coordinator, hat forming machine feeder, teacher, promotion officer, special education case manager)? Give summary @ -Discussed with the admitting provider, Dr. Bailey who accepted the admission. Was smoking cessation discussed for >3mins.? @ -No Was critical care preformed (if so, how long)? @ -No Were there social determinants of health that impacted care today? How? (Homelessness, low income, unemployed, alcoholism, drug addiction, transportation, low edu. Level, literacy, decrease access to med. care, nursing home, rehab)? @ -No Was there de-escalation of care discussed even if they declined (Discuss DNR or withdrawal of care, Hospice)? DNR status @ -No What co-morbidities impacted this encounter? (DM, HTN, Smoking, COPD, CAD, Cancer, CVA, ARF, Chemo, Hep., AIDS, mental health diagnosis, sleep apnea, morbi d obesity)? @ -None Was patient admitted / discharged? Hospital course, mention meds given and rout e, prescriptions, significant lab abnormalities, going to OR and other pertinent info. @ -Patient presents emergency department for weakness, fall, as well as some conversational confusion. Vitals are within acceptable limits. Cervical collar is in place. Does not meet criteria for trauma activation. We will obtain trauma workup with CT brain, chest x-ray and pelvis x-ray. Patient was in agr eement this plan. Given analgesia medications, IV fluids. EKG shows no signs of acute ischemia. Imaging all returned negative for any obvious acute process. Laboratory studies are also unremarkable including undetectable troponin, normal ammonia. Urinalysis is clean. Remainder the workup unremarkable. Updated the patient as well as her son. She is still having generalized weakness. Her son expressed concern as she does have a history of possible stroke. At this, I did obtain a CT angiogram however she has no focal deficits. No actionable NIH. Everything is generalized weakness. CT angiogram revealed no evidence of acute intracranial process. I discussed this with the patient as well as her son. They expressed understanding. Patient will be admitted to the hospital at this time. Neurology consulted. I spoke with the admitting provider, Dr. Bailey who accepted the admission Undiagnosed new problem with uncertain prognosis? @ -No Drug Therapy requiring intensive monitoring for toxicity (Heparin, Nitro, Insulin, Cardizem)? @ -No Were any procedures done? @ -No Diagnosis/symptom? @ -Fall, scalp contusion, weakness Acute, or Chronic, or Acute on Chronic? @ -Acute Uncomplicated (without systemic symptoms) or Complicated (systemic symptoms)? @ -Complicated Side effects of treatment? @ -No Exacerbation, Progression, or Severe Exacerbation? @ -No Poses a threat to life or bodily function? How? (Chest pain, USA, MO, pneumonia, PE, COPD, DKA, ARF, appy, cholecystitis, CVA, Diverticulitis, Homicidal, Suicidal, threat to staff... and all critical care pts) @ -Yes - Lab Data Result diagrams: 08/25/24 13:29 08/25/24 13:29 Lab Results 08/25/24 08/25/24 08/25/24 Range/Units 13:29 13:29 13:29 WBC 5.31 (4.50-10.00) 10*3/uL RBC 4.29 (4.10-5.20) 10*6/uL Hgb 12.5 (12.0-15.0) g/dL Hct 37.3 (37.2-46.3) % MCV 86.9 (80.0-97.0) fL MCH 29.1 (27.0-32.0) pg MCHC 33.5 (32.0-37.0) g/dL Plt Count BOTTLE P[employer]ING MACHINE CLEANER MPV 9.6 (9.5-12.2) fL Immature Gran % (Auto) 0.4 % Neutrophils % 47.6 % Lymphocytes % 43.1 % Monocytes % 4.9 % Eosinophils % 3.4 % Basophils % 0.6 % Immature Gran # 0.02 (0.00-0.04) 10*3/uL Neutrophils # 2.53 (1.80-7.70) 10*3/uL Lymphocytes # 2.29 (0.90-5.00) 10*3/uL Monocytes # 0.26 (0.20-1.00) 10*3/uL Eosinophils # 0.18 (0.04-0.35) 10*3/uL Basophils # 0.03 (0.00-0.10) 10*3/uL Sodium 136 L (137-145) mmol/L Potassium 4.4 (3.5-5.1) mmol/L Chloride 105 (98-107) mmol/L Carbon Dioxide 23 (22-30) mmol/L Anion Gap 8 mmol/L BUN 23 H (7-17) mg/dL Creatinine 1.05 H (0.52-1.04) mg/dL Est GFR (CKD-EPI)AfAm 56 (>60 ml/min/1.73 sqM) Est GFR (CKD-EPI)NonAf 49 (>60 ml/min/1.73 sqM) Glucose 127 H (74-99) mg/dL Plasma Lactic Acid Ceasar 1.9 (0.7-2.0) mmol/L Calcium 9.4 (8.4-10.2) mg/dL Total Bilirubin 0.8 (0.2-1.3) mg/dL AST 22 (14-36) U/L ALT 19 (4-34) U/L Alkaline Phosphatase 67 (38-126) U/L Ammonia <9 (<30) umol/L Total Protein 6.4 (6.3-8.2) g/dL Albumin 3.9 (3.5-5.0) g/dL Salicylates <1.0 mg/dL Acetaminophen <10.0 ug/mL Serum Alcohol <10 mg/dL Influenza Type A (PCR) (Not Detectd) Influenza Type B (PCR) (Not Detectd) RSV (PCR) (Not Detectd) SARS-CoV-2 (PCR) (Not Detectd) Blood Type Blood Type Recheck Bld Type Recheck Status Antibody Screen Spec Expiration Date 08/25/24 08/25/24 Range/Units 13:29 14:05 WBC (4.50-10.00) 10*3/uL RBC (4.10-5.20) 10*6/uL Hgb (12.0-15.0) g/dL Hct (37.2-46.3) % MCV (80.0-97.0) fL MCH (27.0-32.0) pg MCHC (32.0-37.0) g/dL Plt Count MPV (9.5-12.2) fL Immature Gran % (Auto) % Neutrophils % % Lymphocytes % % Monocytes % % Eosinophils % % Basophils % % Immature Gran # (0.00-0.04) 10*3/uL Neutrophils # (1.80-7.70) 10*3/uL Lymphocytes # (0.90-5.00) 10*3/uL Monocytes # (0.20-1.00) 10*3/uL Eosinophils # (0.04-0.35) 10*3/uL Basophils # (0.00-0.10) 10*3/uL Sodium (137-145) mmol/L Potassium (3.5-5.1) mmol/L Chloride (98-107) mmol/L Carbon Dioxide (22-30) mmol/L Anion Gap mmol/L BUN (7-17) mg/dL Creatinine (0.52-1.04) mg/dL Est GFR (CKD-EPI)AfAm (>60 ml/min/1.73 sqM) Est GFR (CKD-EPI)NonAf (>60 ml/min/1.73 sqM) Glucose (74-99) mg/dL Plasma Lactic Acid Ceasar (0.7-2.0) mmol/L Calcium (8.4-10.2) mg/dL Total Bilirubin (0.2-1.3) mg/dL AST (14-36) U/L ALT (4-34) U/L Alkaline Phosphatase (38-126) U/L Ammonia (<30) umol/L Total Protein (6.3-8.2) g/dL Albumin (3.5-5.0) g/dL Salicylates mg/dL Acetaminophen ug/mL Serum Alcohol mg/dL Influenza Type A (PCR) Not Detected (Not Detectd) Influenza Type B (PCR) Not Detected (Not Detectd) RSV (PCR) Not Detected (Not Detectd) SARS-CoV-2 (PCR) Not Detected (Not Detectd) Blood Type A Positive Blood Type Recheck A Pos Bld Type Recheck Status No Antibody Screen NEGATIVE Spec Expiration Date 08/28/20242304 - EKG Data -: EKG Interpreted by Me EKG Comments: 12-lead Electrocardiogram Interpretation Note EKG was reviewed and interpreted by myself. 12-lead ECG performed at 1319 is interpreted by me as revealing normal sinus rhythm at a rate of 90 beats per minute. [place] is normal. [place] interval is 174 ms, QRS durations 101 ms, QTc is 2093 ms.. There were no ST or T wave abnormalities to suggest myocardial ischemia or injury. R wave progression across the precordium was satisfactory. By my interpretation this EKG is non-diagnostic for acute ischemia. Disposition Clinical Impression: Weakness, Fall, Scalp contusion Disposition: ADMITTED IP TO THIS HOSP Condition: Stable Time of Disposition: 15:27
[2024-08-25 16:24] LABS: Appearance,Urine Clear (Clear); Bilirubin,Urine Negative (Negative); Blood,Urine Negative (Negative); Color,Urine Light Yellow; Glucose,Urine (UA) Negative (Negative); Hyaline Casts,Urine 1 /lpf (0-2); Ketones,Urine Negative (Negative); Leukocyte Esterase,Urine Trace (Negative); Mucus,Urine Rare /hpf; Nitrite,Urine Negative (Negative); PH, Urine 6.5 (5.0-8.0); Protein,Urine Negative (Negative); RBC,Urine 1 /hpf (0-5); Specific Gravity,Urine 1.019 (1.001-1.035); Squamous Epithelial Cell,Urine 1 /hpf (0-4); Urobilinogen,Urine <2.0 mg/dL (<2.0); WBC,Urine 1 /hpf (0-5)
[2024-08-25 16:27] LABS: Partial Thromboplastin Time 20.3 sec (22.0-30.0); Prothrombin Time 11.2 sec (10.0-12.5)
[2024-08-25 16:40] LABS: Amphetamine Screen,Urine Not Detected (NotDetected); Barbiturate Screen,Urine Not Detected (NotDetected); Benzodiazepines Screen,Urine Not Detected (NotDetected); Cocaine Screen,Urine Not Detected (NotDetected); Methadone Screen, Urine Not Detected (NotDetected); Opiate Screen,Urine Not Detected (NotDetected); Oxycodone Screen, Urine Not Detected (NotDetected); Phencyclidine Screen,Urine Not Detected (NotDetected); Tricyclic Antidepressant,Urine Not Detected (NotDetected); Urn Cannabinoid Scrn Not Detected (NotDetected)
[2024-08-25] MEDS: KETOROLAC 15 MG/ML 1 ML VIAL IVP STA (16:41)
[2024-08-25] MEDS: SODIUM CHLORIDE 0.9% 1,000 ML IV SCH (16:41)
--- NOTE | 2024-08-25 18:33 | CT ---
EXAMINATION TYPE: CT angio head neck DATE OF EXAM: 08/25/2024 5:13 PM COMPARISON: 08/25/2024.. CLINICAL INDICATION: Female, 84 years old with history of general weakness; PHH, Weakness. TECHNIQUE: Axially acquired helical CT angiogram of the head and neck was obtained with contrast. Axi al images are supplemented with 3D reconstructions and MIP images which were post-processed at an in dependent workstation. NASCET criteria used. Contrast used:65ml mL of Isovue 370 with IV Contrast, Oral contrast used: None. CT DLP: 546.6 mGycm, Automated exposure control for dose reduction was used. FINDINGS: CTA HEAD: No evidence of acute intracranial hemorrhage, mass effect, or midline shift. The ventricles, sulci, a nd cisterns are unremarkable. Vertebral arteries: The vertebral arteries are patent. Vertebral artery dominance: Codominant Basilar artery: The basilar artery is intact. The basilar artery bifurcation is normal. Internal Carotid arteries: The cervical, petrous, cavernous and supraclinoid segments are normal. DUNCAN: Azygous anatomic variant. Patent with no evidence of aneurysm. ACOM: Present without evidence of aneurysm. MCA: Patent with no evidence of aneurysm. INSTRUCTIONAL TECHNOLOGY DIRECTOR: Patent with no evidence of aneurysm. PCOM: Hypoplastic bilaterally. Dural sinuses: Patent. CTA NECK: Right Carotid System: The common carotid and external carotid arteries are patent. There is less than 25% stenosis at the c arotid bifurcation secondary to calcified/noncalcified plaque. The rest of the internal carotid arter y is patent. Left Carotid System: The common carotid and external carotid arteries are patent. There is less than 25% stenosis at the c arotid bifurcation secondary to calcified/noncalcified plaque. The rest of the internal carotid arter y is patent. Vertebral arteries are patent without evidence hemodynamically significant stenosis. There is a three-vessel aortic arch. The origins of the great vessels are patent. No evidence of hemo dynamically significant stenosis. Upper thorax: IMPRESSION: 1. No evidence of dissection of the cervical internal carotid arteries or vertebral arteries. 2. No any evidence of significant stenosis at the carotid bifurcations. 3. No evidence of intracranial high-grade stenosis or intracranial aneurysm. [facility], , 08/25/2024 6:31 PM
[2024-08-25] MEDS: oxyBUTYnin chloride 5 MG TAB PO SCH (21:43)
[2024-08-25] MEDS: ATORVASTATIN 20 MG TAB PO SCH (21:43)
[2024-08-25] MEDS: lisinopriL 10 MG TAB PO SCH (21:43)
--- NOTE | 2024-08-25 21:57 | P.HPIM ---
History of Present Illness This is a pleasant 84 years old female with past medical history of multiple medical problems Presents because of generalized weakness. Patient mentation is at baseline fully awake and oriented. She was sitting on the recliner today but she slipped and fell on the floor without hitting her body and family get concerned given her generalized weakness so they decided to bring her to the hospital Patient complains from headache and back pain. No other chest pain or dyspnea. No other GI or symptom. No weakness or numbness. Patient has chronic numbness in her toes bilaterally and she suffers from neuropathy from her diabetes. Patient uses a walker and her gait is unsteady. Hemodynamically stable and afebrile, unremarkable CBC, BMP, LFT, INR, troponin. Influenza A and type B, RSV, SARS (coronavirus) are undetected Ammonia less than 9 Salicylate less than 1 acetaminophen less than 10, serum alcohol less than 10 CT of the head and neck is negative for acute process There is a right proximal humeral cyst. Pelvic x-ray is negative for acute process Chest x-ray showing chronic changes without acute process Urine analysis is not suspicious of infection Patient was admitted to the hospital for physical therapy evaluation and neurological evaluation Review of Systems Review of systems CONSTITUTIONAL: No fever, no malaise, no fatigue. HEENT: No recent visual problems or hearing problems. Denied any sore throat. CARDIOVASCULAR: No orthopnea, PND, no palpitations, no syncope. PULMONARY: No shortness of breath, no cough, no hemoptysis. GASTROINTESTINAL: No diarrhea, no nausea, no vomiting, no abdominal pain. Normoactive bowel sounds. NEUROLOGICAL: No headaches, no weakness, no numbness. HEMATOLOGICAL: Denies any bleeding or petechiae. GENITOURINARY: Denies any burning micturition, frequency, or urgency. MUSCULOSKELETAL/RHEUMATOLOGICAL: Denies any joint pain, swelling, or any muscle pain. ENDOCRINE: Denies any polyuria or polydipsia. 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 time, residual balance problem, uses walker, took keppra short period of time but no longer on, urinary frequency History of Any Multi-Drug Resistant Organisms: None Reported Past Surgical History: Unable to Obtain Additional Past Surgical History / Comment(s): cataracts, partial thyroidectomy , Watchman implanted @[facility] 07-13-22 Past Anesthesia/Blood Transfusion Reactions: Motion Sickness Additional Past Anesthesia/Blood Transfusion Reaction / Comment(s): slow to wake up from anesthesia Past Psychological History: Unable to Obtain Smoking Status: Unknown if ever smoked Past Alcohol Use History: Unable to Obtain Past Drug Use History: Unable to Obtain - Past Family History Father Family Medical History: Myocardial Infarction ([place]) Mother Family Medical History: COPD Additional Family Medical History / Comment(s): Alzheimer's Medications and Allergies Home Medications Medication Instructions Recorded Confirmed Type Aspirin 81 mg PO DAILY 01/12/14 12/24/23 History Levothyroxine Sodium [Synthroid] 75 mcg PO DAILY 01/12/14 12/24/23 History lisinopriL 40 mg PO HS 01/12/14 12/24/23 History Calcium Carbonate [Calcium] 1,200 mg PO W/LUNCH 11/07/21 12/24/23 History Glimepiride [Amaryl] 1 mg PO DAILY 11/07/21 12/24/23 History Spironolactone [Aldactone] 25 mg PO Q48H 12/16/21 12/24/23 History Cyanocobalamin (Vitamin B-12) 1,000 mcg PO W/LUNCH 08/21/22 12/24/23 History [Vitamin B-12] Atorvastatin [Lipitor] 20 mg PO HS 12/24/23 12/24/23 History Cholecalciferol [Vitamin D3 (125 125 mcg PO W/LUNCH 12/24/23 12/24/23 History Mcg = 5000 Iu)] oxyBUTYnin chloride [Ditropan] 5 mg PO BID 12/24/23 12/24/23 History Aspirin EC [Ecotrin Low Dose] 81 mg PO DAILY 08/25/24 08/25/24 History Atorvastatin [Lipitor] 20 mg PO HS 08/25/24 08/25/24 History Calcium Carbonate [Calcium] 1,200 mg PO DAILY@119908/25/24 08/25/24 History Cholecalciferol [Vitamin D3 (125 125 mcg PO DAILY@119908/25/24 08/25/24 History Mcg = 5000 Iu)] Cyanocobalamin (Vitamin B-12) 1,000 mcg PO DAILY@1200 08/25/24 08/25/24 History [Vitamin B-12] Glimepiride [Amaryl] 1 mg PO DAILY 08/25/24 08/25/24 History Levothyroxine Sodium [Synthroid] 75 mcg PO DAILY 08/25/24 08/25/24 History Spironolactone [Aldactone] 25 mg PO Q2D 08/25/24 08/25/24 History lisinopriL [Zestril] 10 mg PO BID 08/25/24 08/25/24 History oxyBUTYnin chloride [Ditropan] 5 mg PO BID 08/25/24 08/25/24 History Allergies Allergy/AdvReac Type Severity Reaction Status Date / Time adhesive tape Allergy Rash/Hives Verified 08/25/24 14:45 lactic acid [From AmLactin] Allergy Rash/Hives Verified 08/25/24 14:45 potassium lactate Allergy Rash/Hives Verified 08/25/24 14:45 [From AmLactin] sodium lactate Allergy Rash/Hives Verified 08/25/24 14:45 [From AmLactin] cephalexin [From Keflex] AdvReac Nausea & Verified 08/25/24 14:45 Vomiting fenofibrate [From Tricor] AdvReac "heart Verified 08/25/24 14:45 goes out of rhythm" fenofibrate nanocrystallized AdvReac irregular Verified 08/25/24 14:45 [From Tricor] heart rate fenofibrate,micronized AdvReac irregular Verified 08/25/24 14:45 [From Tricor] heart rate moxifloxacin [From Vigamox] AdvReac Nausea & Verified 08/25/24 14:45 Vomiting surgcial tape Allergy Rash/Hives Uncoded 08/25/24 14:45 Physical Exam Vitals: Vital Signs Temp Pulse Resp BP Pulse Ox 08/25/24 21:12 63 17 134/64 95 08/25/24 18:30 69 21 122/69 98 08/25/24 17:00 80 20 143/52 98 08/25/24 14:22 80 13 162/71 96 08/25/24 13:13 97.3 F L 82 18 195/76 95 Intake and Output 08/25/24 08/25/24 08/25/24 06:59 14:59 22:59 Other: Weight 74.843 kg -GENERAL: The patient is alert and oriented x3, not in any acute distress. Well developed, well nourished. Generally weak HEENT: Pupils are round and equally reacting to light. EOMI. No scleral icterus. No conjunctival pallor. Normocephalic, atraumatic. No pharyngeal erythema. No thyromegaly. CARDIOVASCULAR: S1 and S2 present. No murmurs, rubs, or gallops. PULMONARY: Chest is clear to auscultation, no wheezing , no crackles. ABDOMEN: Soft, nontender, nondistended, normoactive bowel sounds. No palpable organomegaly. MUSCULOSKELETAL: No joint swelling or deformity. EXTREMITIES: No cyanosis, clubbing, or pedal edema. NEUROLOGICAL: Gross neurological examination did not reveal any focal deficits. SKIN: No rashes. no petechiae. Results CBC & Chem 7: 08/25/24 13:29 08/25/24 13:29 Labs: Abnormal Lab Results - Last 24 Hours (Table) 08/25/24 08/25/24 08/25/24 Range/Units 13:29 15:51 16:00 APTT 20.3 L (22.0-30.0) sec Sodium 136 L (137-145) mmol/L BUN 23 H (7-17) mg/dL Creatinine 1.05 H (0.52-1.04) mg/dL Glucose 127 H (74-99) mg/dL Ur Leukocyte Esterase Trace H (Negative) Urine Mucus Rare H (None) /hpf Assessment and Plan Assessment: Generalized weakness with fall at home without trauma or syncope Chronic kidney disease stage III Hyperlipidemia Hypothyroidism Hiatal hernia Irritable bowel syndrome Chronic balance problem Plan: Continue with close monitoring Neurology team consult Check TSH, B12 and hemoglobin A1c Resume home medication including her diabetes and blood pressure medication Labs and medication were reviewed.. Continue same treatment. Continue with symptomatic treatment. Resume home medication. Monitor labs and vitals. DVT and GI prophylaxis. Further recommendations as per clinical course of the patient DVT prophylaxis: Subcutaneous heparin GI Prophylaxis: Pepcid PT/OT: Pending Prognosis is guarded
[2024-08-25 23:09] LABS: Glucose,Whole Blood 152 mg/dL (70-110)
[2024-08-26 06:26] LABS: Glucose,Whole Blood 121 mg/dL (70-110)
[2024-08-26] MEDS: LEVOTHYROXINE 75 MCG TAB PO SCH (06:31)
[2024-08-26] MEDS: SPIRONOLACTONE 25 MG TAB PO SCH (08:26)
[2024-08-26] MEDS: ASPIRIN 81 MG PO SCH (08:26)
[2024-08-26] MEDS: GLIMEPIRIDE 1 MG TAB PO SCH (08:26)
[2024-08-26 10:21] LABS: Basophils # (A) 0.03 X 10*3/uL (0.00-0.10); Basophils % (A) 0.7 %; Eosinophils # (A) 0.12 X 10*3/uL (0.04-0.35); Eosinophils % (A) 2.7 %; HCT 33.8 % (37.2-46.3); HGB 10.9 g/dL (12.0-15.0); Lymphocytes # (A) 1.45 X 10*3/uL (0.90-5.00); Lymphocytes % (A) 32.8 %; MCH 29.4 pg (27.0-32.0); MCHC 32.2 g/dL (32.0-37.0); MCV 91.1 FL (80.0-97.0); Mean Platelet Volume 9.7 FL (9.5-12.2); Monocytes # (A) 0.35 X 10*3/uL (0.20-1.00); Monocytes % (A) 7.9 %; NRBC Per 100 WBC 0 X 10*3/uL (0.00-0.01); Neutrophils # (A) 2.45 X 10*3/uL (1.80-7.70); Neutrophils % (A) 55.4 %; Platelet Count 167 X 10*3/uL (140-440); RBC 3.71 X 10*6/uL (4.10-5.20); RDW 14.2 % (11.5-14.5); WBC 4.42 X 10*3/uL (4.50-10.00)
[2024-08-26 10:28] LABS: ALT 15 U/L (8-44); AST 17 U/L (13-35); Albumin 3.2 g/dL (3.8-4.9); Albumin/Globulin Ratio 1.78 Ratio (1.60-3.17); Alkaline Phosphatase 58 U/L (41-126); BUN/Creat Ratio 20.09 Ratio (12.00-20.00); Blood Urea Nitrogen 22.1 mg/dL (9.0-27.0); Carbon Dioxide 19.9 mmol/L (21.6-31.8); Chloride 108 mmol/L (96-109); Globulin 1.8 g/dL (1.6-3.3); Glucose 114 mg/dL (70-110); Potassium 4.2 mmol/L (3.5-5.5); Sodium 138 mmol/L (135-145); Total Bilirubin 0.4 mg/dL (0.3-1.2)
[2024-08-26 11:34] LABS: Glucose,Whole Blood 141 mg/dL (70-110)
[2024-08-26 16:33] LABS: Glucose,Whole Blood 118 mg/dL (70-110)
[2024-08-26] MEDS: ACETAMINOPHEN TAB 325 MG TAB PO PRN (18:04)
[2024-08-26 19:56] LABS: Glucose,Whole Blood 120 mg/dL (70-110)
--- NOTE | 2024-08-26 23:21 | P.CNNES ---
History of Present Illness Consult date: 08/26/24 Requesting physician: Brandon Blackman Reason for Consult: Weakness History of Present Illness: Patient is a 84-year-old female with history of atrial fibrillation, status post watchman device, came to the hospital by ambulance yesterday at 1:10 PM for vertigo. Patient states that she was watching TV. She got up to go to the kitchen to fix her lunch. She uses her walker to walk. She put stuff in the microwave and suddenly she developed severe spinning sensation and she started stumbling. She believes that she hit her head on the refrigerator and then it bounced off. She tried to reach for the walker but went out and she fell on the floor. She didn't feel right afterwards. She is increased for her walker, got hold of her phone and called her family. Patient does not remember how long did the spinning lasted, but was not too long. They called the EMS and she was brought to the hospital. EMS flowsheet not available in the chart. Vital signs on arrival blood pressure 195/76, pulse 82, temperature 97.3. Blood test shows normal CBC, PT PTT, sodium 136 BUN 23, creatinine 1.05. Hepatic panel is normal, troponin negative. Folate 7.9, TSH 1.11. UA negative urine drug screen negative, blood alcohol level negative. Influenza, RSV and coronavirus PCR negative. Chest x-ray showed chronic changes without evidence for acute pulmonary disease. CT head showed no acute intracranial process. Nonspecific white matter changes, likely secondary to chronic small vessel ischemic disease. No evidence of cervical spinal fracture. Mild multilevel degenerative disc disease. Right proximal humerus unicameral bone cyst. EKG showed sinus rhythm. I personally reviewed CT head, agree with the findings. Patient says she has history of atrial fibrillation, underwent watchman device. She then was weaned off Eliquis. Patient has history of right hearing loss earlier this year. Patient has seen Dr. Mai, ENT specialist for hearing loss. Patient underwent an MRI of the brain and IAC with and without contrast which revealed no evidence of intracranial mass or acute/subacute CVA. No evidence of IAC abnormality. Mild paranasal sinus disease worse in the left maxillary sinus, similar to prior in 2021. I personally reviewed that MRI agree with the findings. The study was performed for makes conduction and sensorineural hearing loss, right ear with dizziness. Patient however denies any previous episodes of dizziness. Patient denies any focal symptoms. Review of Systems All pertinent positive and negative review of systems mentioned in the HPI. Otherwise unremarkable. 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 time, residual balance problem, uses walker, took keppra short period of time but no longer on, urinary frequency History of Any Multi-Drug Resistant Organisms: None Reported Past Surgical History: Unable to Obtain Additional Past Surgical History / Comment(s): cataracts, partial thyroidectomy , Watchman implanted @[facility] 07-13-22 Past Anesthesia/Blood Transfusion Reactions: Motion Sickness Additional Past Anesthesia/Blood Transfusion Reaction / Comment(s): slow to wake up from anesthesia Past Psychological History: Unable to Obtain Smoking Status: Unknown if ever smoked Past Alcohol Use History: Unable to Obtain Past Drug Use History: Unable to Obtain - Past Family History Father Family Medical History: Myocardial Infarction (ID) Mother Family Medical History: COPD Additional Family Medical History / Comment(s): Alzheimer's Medications and Allergies Home Medications Medication Instructions Recorded Confirmed Type Aspirin 81 mg PO DAILY 01/12/14 12/24/23 History Levothyroxine Sodium [Synthroid] 75 mcg PO DAILY 01/12/14 12/24/23 History lisinopriL 40 mg PO HS 01/12/14 12/24/23 History Calcium Carbonate [Calcium] 1,200 mg PO W/LUNCH 11/07/21 12/24/23 History Glimepiride [Amaryl] 1 mg PO DAILY 11/07/21 12/24/23 History Spironolactone [Aldactone] 25 mg PO Q48H 12/16/21 12/24/23 History Cyanocobalamin (Vitamin B-12) 1,000 mcg PO W/LUNCH 08/21/22 12/24/23 History [Vitamin B-12] Atorvastatin [Lipitor] 20 mg PO HS 12/24/23 12/24/23 History Cholecalciferol [Vitamin D3 (125 125 mcg PO W/LUNCH 12/24/23 12/24/23 History Mcg = 5000 Iu)] oxyBUTYnin chloride [Ditropan] 5 mg PO BID 12/24/23 12/24/23 History Aspirin EC [Ecotrin Low Dose] 81 mg PO DAILY 08/25/24 08/25/24 History Atorvastatin [Lipitor] 20 mg PO HS 08/25/24 08/25/24 History Calcium Carbonate [Calcium] 1,200 mg PO DAILY@1200 08/25/24 08/25/24 History Cholecalciferol [Vitamin D3 (125 125 mcg PO DAILY@1200 08/25/24 08/25/24 History Mcg = 5000 Iu)] Cyanocobalamin (Vitamin B-12) 1,000 mcg PO DAILY@1200 08/25/24 08/25/24 History [Vitamin B-12] Glimepiride [Amaryl] 1 mg PO DAILY 08/25/24 08/25/24 History Levothyroxine Sodium [Synthroid] 75 mcg PO DAILY 08/25/24 08/25/24 History Spironolactone [Aldactone] 25 mg PO Q2D 08/25/24 08/25/24 History lisinopriL [Zestril] 10 mg PO BID 08/25/24 08/25/24 History oxyBUTYnin chloride [Ditropan] 5 mg PO BID 08/25/24 08/25/24 History Allergies Allergy/AdvReac Type Severity Reaction Status Date / Time adhesive tape Allergy Rash/Hives Verified 08/25/24 14:45 lactic acid [From AmLactin] Allergy Rash/Hives Verified 08/25/24 14:45 potassium lactate Allergy Rash/Hives Verified 08/25/24 14:45 [From AmLactin] sodium lactate Allergy Rash/Hives Verified 08/25/24 14:45 [From AmLactin] cephalexin [From Keflex] AdvReac Nausea & Verified 08/25/24 14:45 Vomiting fenofibrate [From Tricor] AdvReac "heart Verified 08/25/24 14:45 goes out of rhythm" fenofibrate nanocrystallized AdvReac irregular Verified 08/25/24 14:45 [From Tricor] heart rate fenofibrate,micronized AdvReac irregular Verified 08/25/24 14:45 [From Tricor] heart rate moxifloxacin [From Vigamox] AdvReac Nausea & Verified 08/25/24 14:45 Vomiting surgcial tape Allergy Rash/Hives Uncoded 08/25/24 14:45 Physical Examination - Vital Signs Vital Signs: Vital Signs Temp Pulse Pulse Resp BP BP Pulse Ox 08/26/24 14:25 99.1 F 67 16 125/65 95 08/26/24 08:30 69 17 08/26/24 07:13 98.9 F 69 17 144/67 95 08/26/24 00:25 97.5 F L 83 18 139/70 96 08/25/24 23:05 97.7 F 86 18 156/73 97 08/25/24 21:12 63 17 134/64 95 Intake and Output 08/26/24 08/26/24 08/26/24 06:59 14:59 22:59 Intake Total 450 Balance 450 Intake: Intake, IV Titration 450 Amount Sodium Chloride 0.9% 1, 450 000 ml @ 75 mls/hr IV . [id number] [facility] Rx#:[id number] Other: Voiding Method Bedside Commode Diaper Incontinent # Voids 1 1 # Bowel Movements 1 Weight 74.843 kg Patient is an elderly female, very pleasant, in no acute distress. Patient is alert awake oriented to time place and person. Speech and language functions are normal. Patient can name and repeat very well. No aphasia or dysarthria. Attention, concentration and fund of knowledge is adequate. On cranial nerve examination, pupils are equal, round and reacting to light, visual delaney are full on confrontation, with no neglect on double simultaneous stimulation. Extraocular muscles are intact with no nystagmus. Face is symmetric, tongue protrudes to the midline. Palatal elevation and sensation normal, hearing is decreased particularly on the right side and shoulder shrug normal, facial sensation normal. On muscle strength testing, there is no pronator drift and the strength is normal in arms and legs distally and proximally, except hip flexion which is 4-bilaterally, ankle dorsiflexion 5 bilaterally. Deep tendon reflexes are symmetric (right/left) Sensory to touch is equal with no neglect on double simultaneous stimulation. Cerebellar function showed no ataxia for [id number] testing, although there was mild tremors bilaterally. No dysdiadochokinesia. No ataxia for [id number] testing on either side. Tone and bulk of muscles normal. Patient has mild tremors of outstretched hands. Gait deferred.. On general examination, there is no carotid bruit or murmur, S1-S2 audible. Chest is clear on consultation. Abdomen is soft nontender. No organomegaly, bowel sounds present. Peripheral pulses are present. No peripheral edema. Results - Laboratory Findings CBC and BMP: 08/26/24 03:56 08/26/24 03:56 Abnormal Lab Findings: Abnormal Labs 08/25/24 08/25/24 08/25/24 13:29 15:51 16:00 WBC RBC Hgb Hct APTT 20.3 L Sodium 136 L Carbon Dioxide BUN 23 H Creatinine 1.05 H Est GFR (CKD-EPI) BUN/Creatinine Ratio Glucose 127 H POC Glucose (mg/dL) Hemoglobin A1c Total Protein Albumin Ur Leukocyte Esterase Trace H Urine Mucus Rare H 08/25/24 08/26/24 08/26/24 23:08 03:56 03:56 WBC 4.42 L RBC 3.71 L Hgb 10.9 L Hct 33.8 L APTT Sodium Carbon Dioxide 19.9 L BUN Creatinine Est GFR (CKD-EPI) 50 L BUN/Creatinine Ratio 20.09 H Glucose 114 H POC Glucose (mg/dL) 152 H Hemoglobin A1c Total Protein 5.0 L Albumin 3.2 L Ur Leukocyte Esterase Urine Mucus 08/26/24 08/26/24 08/26/24 03:56 06:24 11:32 WBC RBC Hgb Hct APTT Sodium Carbon Dioxide BUN Creatinine Est GFR (CKD-EPI) BUN/Creatinine Ratio Glucose POC Glucose (mg/dL) 121 H 141 H Hemoglobin A1c 6.7 H Total Protein Albumin Ur Leukocyte Esterase Urine Mucus 08/26/24 16:31 WBC RBC Hgb Hct APTT Sodium Carbon Dioxide BUN Creatinine Est GFR (CKD-EPI) BUN/Creatinine Ratio Glucose POC Glucose (mg/dL) 118 H Hemoglobin A1c Total Protein Albumin Ur Leukocyte Esterase Urine Mucus Assessment and Plan Assessment: * Transient vertigo that resulted in a fall. Suspect due to peripheral vestibular dysfunction. Patient does have history of right hearing loss. * Hypertension, uncontrolled. This may be contributing to the vertigo. * History of atrial fibrillation, status post watchman device * Diabetes * Hyperlipidemia * Hypothyroidism * Chronic right hearing loss Plan: * Patient's symptoms have resolved. Current neurological examination is normal. * CTA of head and neck revealed no evidence of dissection of the cervical internal carotid arteries or vertebral arteries. No evidence of significant stenosis at the carotid bifurcations. No evidence of intracranial high-grade stenosis or intracranial aneurysm. * B12 1579, folate 7.90, TSH 1.11 with normal free T4. * Hemoglobin A1c 6.7, diabetes well controlled * Lipid panel with cholesterol 109, LDL 21, HDL 46, triglycerides 204. * Recommended aggressive control of blood pressure. * Continue aspirin 81 mg and Lipitor 20 mg. * If vertigo recurs, consider ENT consult. * Her symptoms of vertigo has resolved. No other workup indicated. * Neurologically clear.
--- NOTE | 2024-08-26 23:41 | P.PN ---
Subjective This is a pleasant 84 years old female with past medical history of multiple medical problems Presents because of generalized weakness. Patient mentation is at baseline fully awake and oriented. She was sitting on the recliner today but she slipped and fell on the floor without hitting her body and family get concerned given her generalized weakness so they decided to bring her to the hospital Patient complains from headache and back pain. No other chest pain or dyspnea. No other GI or symptom. No weakness or numbness. Patient has chronic numbness in her toes bilaterally and she suffers from neuropathy from her diabetes. Patient uses a walker and her gait is unsteady. Hemodynamically stable and afebrile, unremarkable CBC, BMP, LFT, INR, troponin. Influenza A and type B, RSV, SARS (coronavirus) are undetected Ammonia less than 9 Salicylate less than 1 acetaminophen less than 10, serum alcohol less than 10 CT of the head and neck is negative for acute process There is a right proximal humeral cyst. Pelvic x-ray is negative for acute process Chest x-ray showing chronic changes without acute process Urine analysis is not suspicious of infection Patient was admitted to the hospital for physical therapy evaluation and neurol ogical evaluation 08/26 Patient dizziness and vertigo significantly improved today Neurology service evaluated the patient blood work came back unremarkable. Neurologically patient improved and neuro service will cleared her for discharge Will monitor for another 24 hours if she remains stable may consider discharge tomorrow Objective - Vital Signs Vital signs: Vital Signs Temp 99.1 F 08/26/24 14:25 Pulse 67 08/26/24 14:25 Resp 16 08/26/24 14:25 BP 125/65 08/26/24 14:25 Pulse Ox 95 08/26/24 14:25 FiO2 Intake & Output 08/26/24 08/26/24 08/27/24 06:59 18:59 06:59 Intake Total 450 Balance 450 Weight 74.843 kg Intake: Intake, IV Titration 450 Amount Sodium Chloride 0.9% 1, 450 000 ml @ 75 mls/hr IV . [id number] [facility] Rx#:[id number] Other: Voiding Method Bedside Commode Diaper Incontinent # Voids 1 # Bowel Movements 1 - Exam GENERAL: The patient is alert and oriented x3, not in any acute distress. Well developed, well nourished. HEENT: Pupils are round and equally reacting to light. EOMI. No scleral icterus. No conjunctival pallor. Normocephalic, atraumatic. No pharyngeal erythema. No thyromegaly. CARDIOVASCULAR: S1 and S2 present. No murmurs, rubs, or gallops. PULMONARY: Chest is clear to auscultation, no wheezing , no crackles. ABDOMEN: Soft, nontender, nondistended, normoactive bowel sounds. No palpable organomegaly. MUSCULOSKELETAL: No joint swelling or deformity. EXTREMITIES: No cyanosis, clubbing, or pedal edema. NEUROLOGICAL: Gross neurological examination did not reveal any focal deficits. SKIN: No rashes. no petechiae. - Labs CBC & Chem 7: 08/26/24 03:56 08/26/24 03:56 Labs: Abnormal Lab Results - Last 24 Hours (Table) 08/25/24 08/26/24 08/26/24 Range/Units 23:08 03:56 03:56 WBC 4.42 L (4.50-10.00) X 10*3/uL RBC 3.71 L (4.10-5.20) X 10*6/uL Hgb 10.9 L (12.0-15.0) g/dL Hct 33.8 L (37.2-46.3) % Carbon Dioxide 19.9 L (21.6-31.8) mmol/L Est GFR (CKD-EPI) 50 L (>=60) BUN/Creatinine Ratio 20.09 H (12.00-20.00) Ratio Glucose 114 H (70-110) mg/dL POC Glucose (mg/dL) 152 H (70-110) mg/dL Hemoglobin A1c (<=6.0) % Total Protein 5.0 L (6.2-8.2) g/dL Albumin 3.2 L (3.8-4.9) g/dL 08/26/24 08/26/24 08/26/24 Range/Units 03:56 06:24 11:32 WBC (4.50-10.00) X 10*3/uL RBC (4.10-5.20) X 10*6/uL Hgb (12.0-15.0) g/dL Hct (37.2-46.3) % Carbon Dioxide (21.6-31.8) mmol/L Est GFR (CKD-EPI) (>=60) BUN/Creatinine Ratio (12.00-20.00) Ratio Glucose (70-110) mg/dL POC Glucose (mg/dL) 121 H 141 H (70-110) mg/dL Hemoglobin A1c 6.7 H (<=6.0) % Total Protein (6.2-8.2) g/dL Albumin (3.8-4.9) g/dL 08/26/24 Range/Units 16:31 WBC (4.50-10.00) X 10*3/uL RBC (4.10-5.20) X 10*6/uL Hgb (12.0-15.0) g/dL Hct (37.2-46.3) % Carbon Dioxide (21.6-31.8) mmol/L Est GFR (CKD-EPI) (>=60) BUN/Creatinine Ratio (12.00-20.00) Ratio Glucose (70-110) mg/dL POC Glucose (mg/dL) 118 H (70-110) mg/dL Hemoglobin A1c (<=6.0) % Total Protein (6.2-8.2) g/dL Albumin (3.8-4.9) g/dL Assessment and Plan Assessment: Vertigo secondary to peripheral positional vertigo. Improved Generalized weakness with fall at home without trauma or syncope. Improved Chronic kidney disease stage III Hyperlipidemia Hypothyroidism Hiatal hernia Irritable bowel syndrome Chronic balance problem Plan: Continue with close monitoring Neurology team consult Check TSH, B12 and hemoglobin A1c were reviewed and they were unremarkable Resume home medication including her diabetes and blood pressure medication Labs and medication were reviewed.. Continue same treatment. Continue with symptomatic treatment. Resume home medication. Monitor labs and vitals. DVT and GI prophylaxis. Further recommendations as per clinical course of the patient DVT prophylaxis: Subcutaneous heparin GI Prophylaxis: Pepcid PT/OT: Pending Prognosis is guarded Possible discharge tomorrow
[2024-08-27 07:58] VITALS: BP 146/62; PULSE 64; RESP 18; TEMP 98.6
== END 2024-08-27 13:48 | disposition home health service (06) ==
LOC: EC 13:10 → MERGE 13:10 → 5NMEDONC 15:22 → INTOOBSV 15:22 → 4SSUR 17:41
PROVIDERS: ADMIT Internal Medicine; ATTEND Internal Medicine
DX: H81.399 Other peripheral vertigo, unspecified ear (principal)
CPT/HCPCS: 96360; 96361 ×4; 96374; 99285; 36415; 93005; 86900; 86901; 80053 ×2; 84443; 82140; 82746; 83605; 84484; 85025 ×2; 85610; 85730; 86850; 81001; 80306; 80143; 83036; 87636; 80179; 72170; 71045; 72125; 70496; 70450; 70498; G0378 ×3; G0480; J1885; Q9967; 80320

== ENCOUNTER → 2024-08-28 | Outpatient (CLI) | payer MEDICARE ==
--- NOTE | 2024-08-29 07:44 | XR ---
EXAMINATION TYPE: XR lumbar spine 3V, XR sacrum coccyx 3 views DATE OF EXAM: 08/28/2024 5:12 PM COMPARISON: None CLINICAL INDICATION: Female, 84 years old with history of M53.3; PHH, pain FINDINGS: Lumbar spine: May be a transitional lumbosacral segment denoted as a lumbarized S1. Moderate to advanced disc/endpl ate degenerative change mid to lower lumbar spine with corresponding advanced hypertrophic facet arth ropathy. Degenerative trace grade 1 retrolisthesis L2-L3. Remaining alignment is maintained. Vertebra l body heights are also preserved. Sacrum and coccyx: SI joints appear symmetric and intact though with some degenerative spurring and sclerosis on the lef t. The prominent obliquely oriented lucency at the mid coccyx and a posterior angulation and slight p osterior displacement at the distal coccyx. IMPRESSION: 1. Lumbar spine: Transitional lumbosacral segment denoted as a lumbarized S1. 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 Trace grade 1 retrolisthesis L2-L3. No vertebral compression collapse. 2. Sacrum and coccyx: Some asymmetric degenerative changes left SI joint. Additionally, there appears to be a segmental tailbone fracture of the coccyx. The fracture at the midportion is nondisplaced. T he lower portion shows posterior angulation and slight posterior displacement. [facility], , 08/29/2024 7:42 AM
== END | disposition home or self-care (01) ==
LOC: RADXRMAIN 16:46
PROVIDERS: ATTEND Internal Medicine
DX: S32.2XXA Fracture of coccyx, initial encounter for closed fracture (principal); M51.369 Other intervertebral disc degeneration, lumbar region without mention of lumbar back pain or lower extremity pain; M47.816 Spondylosis without myelopathy or radiculopathy, lumbar region; M43.16 Spondylolisthesis, lumbar region; M43.8X8 Other specified deforming dorsopathies, sacral and sacrococcygeal region; M53.3 Sacrococcygeal disorders, not elsewhere classified; X58.XXXA Exposure to other specified factors, initial encounter
CPT/HCPCS: 72100; 72220